=== PATIENT | female | born 1950 | race Caucasian/White ===

== ENCOUNTER 2016-08-27 21:49 | Emergency (ER) | payer MEDICARE ==
[2016-08-27 22:03] VITALS: RESP 18
[2016-08-27] MEDS ORDERED: SODIUM CHLORIDE 0.9% 1,000 ML IV STA (22:12)
[2016-08-27] MEDS ORDERED: KETOROLAC 60 MG/2 ML VIAL IVP STA (22:13)
[2016-08-27] MEDS ORDERED: BENZONATATE 100 MG CAP PO STA (22:15)
[2016-08-27] MEDS ORDERED: LORazepam 2 MG/ML SYRINGE IV STA (22:15)
--- NOTE | 2016-08-27 22:15 | ED ---
General Adult HPI - General Chief complaint: Chest Pain Stated complaint: chest pain from cough/poss med reaction Time Seen by Provider: 08/27/16 22:00 Source: patient, RN notes reviewed Mode of arrival: wheelchair Limitations: no limitations - History of Present Illness Initial comments: This is a 66-year-old female with past medical history significant for breast cancer which she was diagnosed with an June. Patient states she is on chemotherapy. Patient states on Sunday she was having a bad cough so she saw her oncologist a started on antibiotic but because she developed a rash on her abdomen it was a very fine rash with no symptoms he decided to stop the antibiotic. Patient states she still coughs and is starting to hurt when she coughs now. Patient denies any chest pain while at rest the only time she has chest pain is when she is coughing. Patient denies any difficulty breathing shortness of breath per patient denies any fever or chills per patient states she is tired but she has been tired since she's been on chemotherapy. Patient denies any abdominal pain patient denies nausea vomiting diarrhea. Patient denies headache patient denies numbness weakness. - Related Data Home Medications Medication Instructions Recorded Confirmed Acyclovir [Zovirax] 400 mg PO TID 08/27/16 08/27/16 Atenolol 25 mg PO DAILY 08/27/16 08/27/16 Calcium Carb-Vit D 250Mg-125Un 2 each PO DAILY 08/27/16 08/27/16 [Oscal 250+D] Ibuprofen [Advil] 400 mg PO BID 08/27/16 08/27/16 Lidocaine-Prilocaine Cream [Emla 1 applic TOPICAL DIRECTED 08/27/16 08/27/16 Cream 2.5%/2.5%] Lovastatin [Mevacor] 20 mg PO DAILY 08/27/16 08/27/16 Multivitamins, Thera [Multivitamin] 1 tab PO DAILY 08/27/16 08/27/16 Prochlorperazine [Compazine] 10 mg PO Q6H 08/27/16 08/27/16 Psyllium Husk 100% [Metamucil] 500 mg PO DAILY 08/27/16 08/27/16 Previous Rx's Medication Instructions Recorded Albuterol Inhaler [Ventolin Hfa 1 - 2 puff INHALATION Q6HR PRN #2 08/28/16 Inhaler] puff Azithromycin [Zithromax Tri-Seng] 500 mg PO DAILY #3 tab 08/28/16 Benzonatate [Tessalon Perles] 200 mg PO TID #10 capsule 08/28/16 Allergies Allergy/AdvReac Type Severity Reaction Status Date / Time amoxicillin Allergy Rash/Hives Verified 08/27/16 22:05 chlorpheniramine Allergy Itching Verified 08/27/16 22:05 [From Tussionex] doxycycline Allergy Itching Verified 08/27/16 22:05 hydrocodone [From Tussionex] Allergy Itching Verified 08/27/16 22:05 moxifloxacin [From Avelox] Allergy Itching Verified 08/27/16 22:05 Review of Systems ROS Statement: Those systems with pertinent positive or pertinent negative responses have been documented in the HPI. ROS Other: All systems not noted in ROS Statement are negative. Past Medical History Past Medical History: Cancer, Hyperlipidemia, Hypertension, Osteoarthritis (OA) Additional Past Medical History / Comment(s): breast cancer, chemo History of Any Multi-Drug Resistant Organisms: None Reported Past Surgical History: Section, Tonsillectomy Additional Past Surgical History / Comment(s): arthroscopy to right knee, Past Psychological History: No Psychological Hx Reported Smoking Status: Never smoker Past Alcohol Use History: None Reported Past Drug Use History: None Reported General Exam - General Exam Comments Initial Comments: GENERAL: Patient is well-developed and well-nourished. Patient is nontoxic and well- hydrated and is in mild distress. ENT: Neck is soft and supple. No significant lymphadenopathy is noted. Oropharynx is clear. Moist mucous membranes. Neck has full range of motion without eliciting any pain. EYES: The sclera were anicteric and conjunctiva were pink and moist. Extraocular movements were intact and pupils were equal round and reactive to light. Eyelids were unremarkable. PULMONARY: Unlabored respirations. Good breath sounds bilaterally. No audible rales rhonchi or wheezing was noted. CARDIOVASCULAR: There is a regular rate and rhythm without any murmurs gallops or rubs. Patient 's chest tenderness under the breast to palpation ABDOMEN: Soft and nontender with normal bowel sounds. No palpable organomegaly was noted. There is no palpable pulsatile mass. SKIN: Skin is clear with no lesions or rashes and otherwise unremarkable. NEUROLOGIC: Patient is alert and oriented x3. Cranial nerves II through XII are grossly intact. Motor and sensory are also intact. Normal speech, volume and content. Symmetrical smile. MUSCULOSKELETAL: Normal extremities with adequate strength and full range of motion. No lower extremity swelling or edema. No calf tenderness. LYMPHATICS: No significant lymphadenopathy is noted PSYCHIATRIC: Normal psychiatric evaluation. Normal interpersonal interactions appears functionally intact in deals appropriately with others. No signs of depression. Mild anxiety Limitations: no limitations Course Vital Signs 08/27/16 21:58 Temperature 101.1 F H Pulse Rate 120 H Respiratory 18 Rate Blood Pressure 133/62 O2 Sat by Pulse 96 Oximetry Medical Decision Making - Medical Decision Making EKG shows a sinus tachycardia at 107 bpm. It was on a 42 QRS is 74 QT interval 342 QTC is 456. Patient's EKG shows no ST segment elevation or depression or T wave abnormalities are noted. Patient's CAT scan of the chest shows no PE or pneumonia. Tessalon Perles seem to help the patient's cough patient received 1 g of Rocephin. - Lab Data Result diagrams: 08/27/16 22:35 08/27/16 22:35 Lab Results 08/27/16 08/27/16 08/27/16 Range/Units 22:35 22:35 22:35 WBC 5.1 (3.8-10.6) k/uL RBC 3.11 L (3.80-5.40) m/uL Hgb 9.9 L (11.4-16.0) gm/dL Hct 28.7 L (34.0-46.0) % MCV 92.3 (80.0-100.0) fL MCH 31.9 (25.0-35.0) pg MCHC 34.6 (31.0-37.0) g/dL RDW 15.5 (11.5-15.5) % Plt Count 139 L (150-450) k/uL Neutrophils % (Manual) 61.0 % Band Neutrophils % 14.0 % Lymphocytes % (Manual) 9.5 % Monocytes % (Manual) 9.0 % Eosinophils % (Manual) 0.5 % Metamyelocytes % 4.0 % Myelocytes % 2.0 % Neutrophils # (Manual) 3.8 (1.3-7.7) k/uL Lymphocytes # (Manual) 0.5 L (1.0-4.8) k/uL Monocytes # (Manual) 0.5 (0-1.0) k/uL Eosinophils # (Manual) 0.0 (0-0.7) k/uL Nucleated RBCs 0 (0-0) /100 WBC Manual Slide Review Performed Polychromasia Present Anisocytosis (manual) Present D-Dimer 2.10 H (<0.60) mg/L FEU Sodium 143 (137-145) mmol/L Potassium 3.8 (3.5-5.1) mmol/L Chloride 105 (98-107) mmol/L Carbon Dioxide 27 (22-30) mmol/L Anion Gap 11 mmol/L BUN 15 (7-17) mg/dL Creatinine 0.90 (0.52-1.04) mg/dL Est GFR (MDRD) Af Amer >60 (>60 ml/min/1.73 sqM) Est GFR (MDRD) Non-Af >60 (>60 ml/min/1.73 sqM) Glucose 136 H (74-99) mg/dL Calcium 8.6 (8.4-10.2) mg/dL Magnesium 1.8 (1.6-2.3) mg/dL Total Bilirubin 0.3 (0.2-1.3) mg/dL AST 29 (14-36) U/L ALT 36 (9-52) U/L Alkaline Phosphatase 79 (38-126) U/L Total Protein 5.4 L (6.3-8.2) g/dL Albumin 3.2 L (3.5-5.0) g/dL Disposition Clinical Impression: Bronchitis Disposition: HOME SELF-CARE Condition: Good Instructions: Acute Bronchitis (ED) Prescriptions: Albuterol Inhaler [Ventolin Hfa Inhaler] 1 - 2 puff INHALATION Q6HR PRN #2 puff PRN Reason: Difficulty breathing Azithromycin [Zithromax Tri-Seng] 500 mg PO DAILY #3 tab Benzonatate [Tessalon Perles] 200 mg PO TID #10 capsule Referrals: Omkar Guerrero MD [Primary Care Provider] - 1-2 days Time of Disposition: 00:54
[2016-08-27 22:59] LABS: CH 32.5; CHCM 35.5; HCT 28.7 % (34.0-46.0); HDW 3.07; HGB 9.9 gm/dL (11.4-16.0); Immature Gran Flag Marked; MCH 31.9 pg (25.0-35.0); MCHC 34.6 g/dL (31.0-37.0); MCV 92.3 fL (80.0-100.0); Mean Platelet Volume 7.3; RBC 3.11 m/uL (3.80-5.40); RDW 15.5 % (11.5-15.5); WBC 5.1 k/uL (3.8-10.6); WBC (Perox) 5.16
[2016-08-27 23:01] LABS: ALT 36 U/L (9-52); AST 29 U/L (14-36); Alkaline Phosphatase 79 U/L (38-126); Anion Gap 11 mmol/L; Blood Urea Nitrogen 15 mg/dL (7-17); Calcium 8.6 mg/dL (8.4-10.2); Carbon Dioxide 27 mmol/L (22-30); Chloride 105 mmol/L (98-107); Glucose 136 mg/dL (74-99); Magnesium 1.8 mg/dL (1.6-2.3); Non-African American GFR(MDRD) >60 (>60 ml/min/1.73 sqM); Potassium 3.8 mmol/L (3.5-5.1); Sodium 143 mmol/L (137-145); Total Bilirubin 0.3 mg/dL (0.2-1.3); Total Protein 5.4 g/dL (6.3-8.2)
[2016-08-27] MEDS ORDERED: RX INFO: IV CONTRAST WAS GIVEN 1 EACH MISC MISCELLANE PRN (23:09)
--- NOTE | 2016-08-27 23:13 | XR ---
EXAMINATION TYPE: XR chest 2V DATE OF EXAM: 08/27/2016 10:49 PM COMPARISON: None. HISTORY: Difficulty in breathing, fever cough history of breast carcinoma. TECHNIQUE: Frontal and lateral views of the chest are obtained. FINDINGS: Left-sided Mediport catheter is noted in place with its tip in the superior vena cava. Mild chronic lung changes are suggested bilaterally. There is no focal air space opacity, pleural effusion, or pneumothorax seen. The cardiac silhouette size is within normal limits. The osseous structures are intact. IMPRESSION: No acute cardiopulmonary process.
[2016-08-27 23:17] LABS: Add Differential Manual Differential
[2016-08-27 23:22] LABS: Nucleated Red Blood Cells 0 /100 WBC (0-0); Total Cells Counted 200
[2016-08-27 23:23] LABS: Manual Review Performed; Polychromasia Present
[2016-08-27] MEDS ORDERED: ACETAMINOPHEN TAB 500 MG TAB PO STA (23:44)
[2016-08-27] MEDS ORDERED: IBUPROFEN 600 MG TAB PO STA (23:44)
--- NOTE | 2016-08-28 00:43 | CT ---
EXAMINATION TYPE: CT chest angio for PE DATE OF EXAM: 08/27/2016 11:38 PM COMPARISON: NONE HISTORY: JO ANN, breast ca, r/o PE CT DLP: 531 mGycm Automated exposure control for dose reduction was used. CONTRAST: CT Chest for pulmonary embolism performed with with IV Contrast, patient injected with 60 mL of Omnip aque 350. FINDINGS: PULMONARY ARTERIES: The evaluation of pulmonary arteries is slightly limited due to multiple artifact s and the limited opacification of central and peripheral pulmonary arterial branches. No significant filling defects are noted in the main pulmonary arteries and central branches to repre sent acute pulmonary embolism. LUNGS: Chronic lung changes are suggested bilaterally. Dependent atelectasis is noted in both lung ba ses with mild emphysematous changes. No significant lung masses are nodules are noted. There is no pl eural effusion or pneumothorax seen. The tracheobronchial tree is patent. No significant focal pneum onia is noted. MEDIASTINUM: The ascending aorta measures 2.8 cm in greatest AP diameter without significant aneurysm . No definite dissection changes are noted in this evaluation of thoracic aorta with multiple motion artifacts and showed mild atheromatous calcifications. There are no greater than 1 cm hilar or medias tinal lymph nodes. No pericardial effusion is seen. A Mediport catheter is noted superimposing the left chest. OTHER: Visualized abdomen showed contracted gallbladder with few gallstones. Visualized adrenal glan ds showed mild hypertrophic changes. IMPRESSION: 1. No significant acute pulmonary embolism is noted in this slightly limited study with multiple shai facts in the peripheral and central pulmonary arterial branches. 2. No significant focal pneumonia is noted. 3. Cholelithiasis.
[2016-08-28] MEDS ORDERED: IPRATROPIUM-ALBUTEROL 3 ML NEB INHALATION STA (00:55)
[2016-08-28 01:36] VITALS: BP 127/59; PULSE 108; TEMP 99.2
== END 2016-08-28 01:36 | disposition home or self-care (01) ==
LOC: EC 21:49
DX: J40 Bronchitis, not specified as acute or chronic (principal); I10 Essential (primary) hypertension; E78.5 Hyperlipidemia, unspecified; M19.90 Unspecified osteoarthritis, unspecified site; Z85.3 Personal history of malignant neoplasm of breast; Z92.21 Personal history of antineoplastic chemotherapy; R05 Cough; Z79.899 Other long term (current) drug therapy; Z88.1 Allergy status to other antibiotic agents; Z88.0 Allergy status to penicillin; Z88.8 Allergy status to other drugs, medicaments and biological substances
CPT/HCPCS: 99285; 96374; 96375; 96361; 96365; 36415; 94640; 93005; 85379; 80053; 83735; 85025; 87040; 71020; 71275; J2060; Q9967; J0696; J1885

== ENCOUNTER 2016-08-28 20:40 | Inpatient (IN) | payer MEDICARE ==
[2016-08-28] MEDS ORDERED: SODIUM CHLORIDE 0.9% 500 ML IV STA (22:52)
[2016-08-28] MEDS ORDERED: SODIUM CHLORIDE 0.9% 1,000 ML IV STA (22:52)
[2016-08-28] MEDS ORDERED: AZITHROMYCIN 500 MG in SODIUM CHLORIDE 0.9% 250 ML IVPB STA (22:58)
[2016-08-28] MEDS ORDERED: cefTRIAXone 2,000 MG in SODIUM CHLORIDE 0.9% 100 ML IVPB STA (23:01)
[2016-08-28 23:11] LABS: Anisocytosis Slight; CH 32.5; CHCM 35.5; HCT 29.2 % (34.0-46.0); HDW 3.27; HGB 10.2 gm/dL (11.4-16.0); Immature Gran Flag Marked; MCH 32.3 pg (25.0-35.0); MCV 92.3 fL (80.0-100.0); Mean Platelet Volume 7.4; RBC 3.16 m/uL (3.80-5.40); RDW 16.1 % (11.5-15.5); WBC 10.4 k/uL (3.8-10.6); WBC (Perox) 10.88
[2016-08-28 23:12] LABS: Appearance,Urine Clear (Clear); Bilirubin,Urine Negative (Negative); Glucose,Urine (UA) Negative (Negative); Ketones,Urine 2+ (Negative); Leukocyte Esterase,Urine Negative (Negative); Nitrite,Urine Negative (Negative); PH, Urine 5.5 (5.0-8.0); Protein,Urine Trace (Negative); Specific Gravity,Urine 1.019 (1.001-1.035); UA Billing (MACRO vs. MICRO) CHEM; Urobilinogen,Urine <2.0 mg/dL (<2.0)
[2016-08-28 23:20] LABS: ALT 45 U/L (9-52); AST 38 U/L (14-36); Alkaline Phosphatase 90 U/L (38-126); Anion Gap 9 mmol/L; Blood Urea Nitrogen 9 mg/dL (7-17); Calcium 8.2 mg/dL (8.4-10.2); Carbon Dioxide 26 mmol/L (22-30); Chloride 102 mmol/L (98-107); Glucose 120 mg/dL (74-99); Non-African American GFR(MDRD) >60 (>60 ml/min/1.73 sqM); Potassium 3.6 mmol/L (3.5-5.1); Sodium 137 mmol/L (137-145); Total Bilirubin 0.5 mg/dL (0.2-1.3); Total Protein 6.2 g/dL (6.3-8.2)
--- NOTE | 2016-08-28 23:34 | XR ---
EXAMINATION TYPE: XR chest 2V DATE OF EXAM: 08/28/2016 11:11 PM COMPARISON: 08/27/2016 HISTORY: Cough TECHNIQUE: Frontal and lateral views of the chest are obtained. FINDINGS: There is no heart failure nor confluent pneumonic infiltrate. There are no hilar masses. T here is left-sided central venous catheter with tip in the superior vena cava. There is no sign of pl eural effusion. Bony thorax is intact. IMPRESSION: No active cardiopulmonary disease. No change.
[2016-08-28] MEDS ORDERED: ONDANSETRON 4 MG/2 ML VIAL IVP STA (23:37)
[2016-08-28 23:45] LABS: Add Differential Manual Differential
[2016-08-28 23:48] LABS: Manual Review Performed; Metamyelocytes % 1.5 %; Myelocytes % 5.5 %; Nucleated Red Blood Cells 0 /100 WBC (0-0); Polychromasia Present; Total Cells Counted 200; Toxic Granulation Present; Toxic Vacuolation Present
[2016-08-29] MEDS ORDERED: ACETAMINOPHEN TAB 500 MG TAB PO STA
--- NOTE | 2016-08-29 00:14 | ED ---
Fever HPI - General Chief Complaint: Fever Stated Complaint: revisit fever Time Seen by Provider: 08/28/16 22:19 Source: patient, family Mode of arrival: ambulatory Limitations: no limitations - History of Present Illness Initial Comments: She has a history of breast cancer she is on now after treatment with a chemo last chemo was 3 days ago she has a fever for last few days she has been on antibiotics and after she got Augmentin she developed a rash in the chest now rash has gotten better but today she can't get it of the fever has been coughing for the last 5 days, Dr. Joselito moody look and after her breast cancer she also had some loose stools she feels very weak and had a recurrence and chills along with the fever. Denies any headaches no neck stiffness no chest pain is coughing no abdominal pain no frequency urgency dysuria - Related Data Home Medications Medication Instructions Recorded Confirmed Atenolol 25 mg PO DAILY 08/27/16 08/28/16 Ibuprofen [Advil] 400 mg PO BID 08/27/16 08/28/16 Lidocaine-Prilocaine Cream [Emla 1 applic TOPICAL DAILY PRN 08/27/16 08/28/16 Cream 2.5%/2.5%] Lovastatin [Mevacor] 20 mg PO HS 08/27/16 08/28/16 Multivitamins, Thera [Multivitamin] 1 tab PO DAILY 08/27/16 08/28/16 Acetaminophen Tab [Tylenol Tab] 500 mg PO Q6H PRN 08/28/16 08/28/16 Albuterol Inhaler [Ventolin Hfa 2 puff INHALATION RT-Q6H PRN 08/28/16 08/28/16 Inhaler] Calcium Carbonate/Vitamin D3 2 tab PO DAILY 08/28/16 08/28/16 [Calcium 600-Vit D3 200 Tablet] Psyllium Husk [Psyllium] 0.4 gm PO HS 08/28/16 08/28/16 Previous Rx's Medication Instructions Recorded Azithromycin [Zithromax Tri-Seng] 500 mg PO DAILY #3 tab 08/28/16 Benzonatate [Tessalon Perles] 200 mg PO TID #10 capsule 08/28/16 Allergies Allergy/AdvReac Type Severity Reaction Status Date / Time amoxicillin [From Augmentin] Allergy Rash/Hives/ Verified 08/28/16 23:08 Diarrhea chlorpheniramine Allergy Itching Verified 08/28/16 23:08 [From Tussionex] clavulanic acid Allergy Rash/Hives/ Verified 08/28/16 23:08 [From Augmentin] Diarrhea doxycycline Allergy Itching Verified 08/28/16 23:08 hydrocodone [From Tussionex] Allergy Itching Verified 08/28/16 23:08 moxifloxacin [From Avelox] Allergy Itching Verified 08/28/16 23:08 Review of Systems ROS Statement: Those systems with pertinent positive or pertinent negative responses have been documented in the HPI. ROS Other: All systems not noted in ROS Statement are negative. Past Medical History Past Medical History: Cancer, Hyperlipidemia, Hypertension, Osteoarthritis (OA) Additional Past Medical History / Comment(s): breast cancer, chemo History of Any Multi-Drug Resistant Organisms: None Reported Past Surgical History: Section, Tonsillectomy Additional Past Surgical History / Comment(s): arthroscopy to right knee, Past Psychological History: No Psychological Hx Reported Smoking Status: Never smoker Past Alcohol Use History: None Reported Past Drug Use History: None Reported General Exam - General Exam Comments Initial Comments: General: The patient is awake and alert, in no distress, and does look pale and tired Skin: Skin is warm and dry and no rashes or lesions are noted. Noticed very mild rash and anterior chest in the epigastric area seems like it is fading away Eye: Pupils are equal, round and reactive to light, extra-ocular movements are intact; there is normal conjunctiva bilaterally. Ears, nose, mouth and throat: There are moist mucous membranes and no oral lesions. Neck: The neck is supple, there is no tenderness or JVD. Cardiovascular: There is a regular rate and rhythm. No murmur, rub or gallop is appreciated. Respiratory: To auscultation bilateral, noticed some crackles at the bases Gastrointestinal: Soft, non-distended, non-tender abdomen without masses or organomegaly noted. There is no rebound or guarding present. Bowel sounds are unremarkable. Back: There is no tenderness to palpation in the midline. There is no obvious deformity. Musculoskeletal: Normal ROM, no tenderness, There is no pedal edema. There is no calf tenderness or swelling. No cords were appreciated. Neurological: CN II-XII intact, Cranial nerves III through XII are intact. There are no obvious motor or sensory deficits. Coordination appears grossly intact. Speech is normal. Psychiatric: Cooperative, appropriate mood & affect, normal judgment. Limitations: no limitations Course Vital Signs 08/28/16 08/28/16 08/28/16 20:49 23:54 23:59 Temperature 101.6 F H 102.5 F H Pulse Rate 111 H 117 H Respiratory 20 22 Rate Blood Pressure 104/56 124/58 O2 Sat by Pulse 96 95 Oximetry General is reassessed at 12 10 in the morning, CBC, lites, compressive metabolic panel, UA, chest x-ray all those are negative R fever has gone up. Sed rate greater than 102 at this point I believe she has a sepsis for treated pneumonia because she was an O2 sats of antibiotics considering her immunocompromise status with her do the cultures urine culture blood culture she be started on antibiotics considering her ALLERGIES and sensitivities and will consult Dr. Yee patient be admitted under Dr. Gonzales and her primary care physician Medical Decision Making - Lab Data Result diagrams: 08/28/16 22:58 08/28/16 22:58 Lab Results 08/28/16 08/28/16 08/28/16 Range/Units 22:58 22:58 22:58 WBC 10.4 (3.8-10.6) k/uL RBC 3.16 L (3.80-5.40) m/uL Hgb 10.2 L (11.4-16.0) gm/dL Hct 29.2 L (34.0-46.0) % MCV 92.3 (80.0-100.0) fL MCH 32.3 (25.0-35.0) pg MCHC 35.0 (31.0-37.0) g/dL RDW 16.1 H (11.5-15.5) % Plt Count 146 L (150-450) k/uL Neutrophils % (Manual) 81.5 % Lymphocytes % (Manual) 2.0 % Monocytes % (Manual) 8.5 % Eosinophils % (Manual) 1.0 % Metamyelocytes % 1.5 % Myelocytes % 5.5 % Neutrophils # (Manual) 8.5 H (1.3-7.7) k/uL Lymphocytes # (Manual) 0.2 L (1.0-4.8) k/uL Monocytes # (Manual) 0.9 (0-1.0) k/uL Eosinophils # (Manual) 0.1 (0-0.7) k/uL Nucleated RBCs 0 (0-0) /100 WBC Manual Slide Review Performed Toxic Granulation Present Toxic Vacuolation Present Polychromasia Present Anisocytosis Slight Sodium 137 (137-145) mmol/L Potassium 3.6 (3.5-5.1) mmol/L Chloride 102 (98-107) mmol/L Carbon Dioxide 26 (22-30) mmol/L Anion Gap 9 mmol/L BUN 9 (7-17) mg/dL Creatinine 0.79 (0.52-1.04) mg/dL Est GFR (MDRD) Af Amer >60 (>60 ml/min/1.73 sqM) Est GFR (MDRD) Non-Af >60 (>60 ml/min/1.73 sqM) Glucose 120 H (74-99) mg/dL Plasma Lactic Acid Jimi 1.4 (0.7-2.0) mmol/L Calcium 8.2 L (8.4-10.2) mg/dL Total Bilirubin 0.5 (0.2-1.3) mg/dL AST 38 H (14-36) U/L ALT 45 (9-52) U/L Alkaline Phosphatase 90 (38-126) U/L Total Protein 6.2 L (6.3-8.2) g/dL Albumin 3.6 (3.5-5.0) g/dL Urine Color Urine Appearance (Clear) Urine pH (5.0-8.0) Ur Specific [place] (1.001-1.035) Urine Protein (Negative) Urine Glucose (UA) (Negative) Urine Ketones (Negative) Urine Blood (Negative) Urine Nitrate (Negative) Urine Bilirubin (Negative) Urine Urobilinogen (<2.0) mg/dL Ur Leukocyte Esterase (Negative) 08/28/16 Range/Units 22:58 WBC (3.8-10.6) k/uL RBC (3.80-5.40) m/uL Hgb (11.4-16.0) gm/dL Hct (34.0-46.0) % MCV (80.0-100.0) fL MCH (25.0-35.0) pg MCHC (31.0-37.0) g/dL RDW (11.5-15.5) % Plt Count (150-450) k/uL Neutrophils % (Manual) % Lymphocytes % (Manual) % Monocytes % (Manual) % Eosinophils % (Manual) % Metamyelocytes % % Myelocytes % % Neutrophils # (Manual) (1.3-7.7) k/uL Lymphocytes # (Manual) (1.0-4.8) k/uL Monocytes # (Manual) (0-1.0) k/uL Eosinophils # (Manual) (0-0.7) k/uL Nucleated RBCs (0-0) /100 WBC Manual Slide Review Toxic Granulation Toxic Vacuolation Polychromasia Anisocytosis Sodium (137-145) mmol/L Potassium (3.5-5.1) mmol/L Chloride (98-107) mmol/L Carbon Dioxide (22-30) mmol/L Anion Gap mmol/L BUN (7-17) mg/dL Creatinine (0.52-1.04) mg/dL Est GFR (MDRD) Af Amer (>60 ml/min/1.73 sqM) Est GFR (MDRD) Non-Af (>60 ml/min/1.73 sqM) Glucose (74-99) mg/dL Plasma Lactic Acid Jimi (0.7-2.0) mmol/L Calcium (8.4-10.2) mg/dL Total Bilirubin (0.2-1.3) mg/dL AST (14-36) U/L ALT (9-52) U/L Alkaline Phosphatase (38-126) U/L Total Protein (6.3-8.2) g/dL Albumin (3.5-5.0) g/dL Urine Color Yellow Urine Appearance Clear (Clear) Urine pH 5.5 (5.0-8.0) Ur Specific [place] 1.019 (1.001-1.035) Urine Protein Trace H (Negative) Urine Glucose (UA) Negative (Negative) Urine Ketones 2+ H (Negative) Urine Blood Negative (Negative) Urine Nitrate Negative (Negative) Urine Bilirubin Negative (Negative) Urine Urobilinogen <2.0 (<2.0) mg/dL Ur Leukocyte Esterase Negative (Negative) Disposition Clinical Impression: Fever, History of breast cancer, Chemotherapy induced diarrhea, Diarrhea, Pneumonia Disposition: ADMITTED IP TO THIS HOSP Condition: Good Referrals: Omkar Guerrero MD [Primary Care Provider] - 1-2 days
[2016-08-29] MEDS ORDERED: IBUPROFEN 400 MG TAB PO PRN ×2 (00:16→01:10)
[2016-08-29] MEDS ORDERED: ONDANSETRON 4 MG/2 ML VIAL IVP PRN (00:16)
[2016-08-29] MEDS ORDERED: NALOXONE 0.4 MG/ML 1 ML VIAL IV PRN (00:16)
[2016-08-29] MEDS ORDERED: ACETAMINOPHEN TAB 325 MG TAB PO PRN (00:16)
[2016-08-29] MEDS ORDERED: ALBUTEROL NEBULIZED 2.5 MG/3 ML INHALATION PRN (00:21)
[2016-08-29] MEDS ORDERED: LIDOCAINE-PRILOCAINE 2.5-2.5% CREAM 5 GM TUBE TOPICAL PRN (00:21)
[2016-08-29] MEDS ORDERED: RX INFO: IV CONTRAST WAS GIVEN 1 EACH MISC MISCELLANE PRN (00:22)
[2016-08-29] MEDS: SODIUM CHLORIDE 0.9% 1,000 ML IV SCH ×3 (04:35→20:30)
[2016-08-29] MEDS: ATENOLOL 25 MG TAB PO SCH (07:51)
[2016-08-29] MEDS: MULTIVITAMINS, THERA 1 EACH TAB PO SCH (07:51)
[2016-08-29] MEDS: CALCIUM CARB-VIT D 500MG-200UN 1 EACH TAB PO SCH (07:51)
[2016-08-29] MEDS: FAMOTIDINE 20 MG TAB PO SCH (10:32)
--- NOTE | 2016-08-29 11:11 | P.CONS ---
History of Present Illness - Reason for Consult Consult date: 08/29/16 Antibiotic recommendations - History of Present Illness This is a 66-year-old female. She has a past medical history significant for right-sided breast cancer under the care of Dr. Yee. She is currently receiving chemotherapy in the form of Doxorubicin. She receives this every 2 weeks and her next dose is due this Sunday #4 and she states recently Neulasta was added. Since last Sunday, she has had a cough and runny nose. She denies any sore throat. She states her right lower ribs are sore from coughing so much. She is not able to sleep due to the cough. She was given Augmentin by Dr. Yee and took this for 2 days and then developed a rash under her breast/upper abdomen and also diarrhea. She called Dr. Cheema and the Augmentin was discontinued. She then presented to the emergency center on August 27. She had a temperature of 101.1, pulse of 120. Chest x-ray showed no acute cardiopulmonary process. She underwent a CAT scan of the brain that showed no PE and no pneumonia. She was discharged home on an albuterol inhaler, 3 day Z-Seng, Tessalon Perles and a follow-up with her physician in the next 1-2 days. On Sunday night she again had a fever of 100.5 at home and she came into [facility] emergency center for evaluation. Repeat chest x-ray showed no active cardiopulmonary disease. Temperature max in the emergency center was 102.5 with pulse of 117. White count was at 10.4, hemoglobin 10.2 and platelet count 146. Influenza testing a and B were negative. Urinalysis was clear, nitrite and leukoesterase negative, ketones 2+ . Lactic acid 1.4. Patient was given dose of ceftriaxone and dose of azithromycin IV and admitted to the oncology unit. Blood culture has status received. Consult in place for oncology. Review of Systems All systems: negative Constitutional: Reports anorexia, Reports chills, Reports fatigue, Reports fever , Reports lethargy, Reports poor appetite, Reports weakness Eyes: denies blurred vision, denies pain Ears, nose, mouth and throat: Reports nasal congestion, Reports nasal discharge , Denies dental pain, Denies dysphagia, Denies epistaxis, Denies headache, Denies mouth pain, Denies swelling in mouth, Denies swelling in throat, Denies sore throat Cardiovascular: Reports chest pain, Denies shortness of breath Respiratory: Reports cough, Reports cough with sputum Gastrointestinal: Reports diarrhea, Denies abdominal pain, Denies nausea, Denies vomiting Genitourinary: Denies dysuria, Denies hematuria Musculoskeletal: Denies myalgias Integumentary: Denies pruritus, Denies rash Neurological: Denies numbness, Denies weakness Psychiatric: Denies anxiety, Denies depression Endocrine: Denies fatigue, Denies weight change Past Medical History Past Medical History: Cancer, Hyperlipidemia, Hypertension, Osteoarthritis (OA) Additional Past Medical History / Comment(s): Right sided breast cancer treated with Doxorubicin. History of Any Multi-Drug Resistant Organisms: None Reported Past Surgical History: Section, Tonsillectomy Additional Past Surgical History / Comment(s): arthroscopy to right knee, Past Anesthesia/Blood Transfusion Reactions: No Reported Reaction Past Psychological History: No Psychological Hx Reported Smoking Status: Never smoker Past Alcohol Use History: None Reported Additional Past Alcohol Use History / Comment(s): She has been a lifelong nonsmoker. She denies any medical marijuana, marijuana, street drug use. She drinks alcohol occasionally but none since she started chemotherapy. 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 She lives at home with her and 2 adult sons. There are no pets in the home. Past Drug Use History: None Reported - Past Family History Mother History Unknown: Yes Family Medical History: Cancer, Hypertension Additional Family Medical History / Comment(s): Breast cancer Medications and Allergies Home Medications Medication Instructions Recorded Confirmed Type Atenolol 25 mg PO DAILY 08/27/16 08/28/16 History Ibuprofen [Advil] 400 mg PO BID 08/27/16 08/28/16 History Lidocaine-Prilocaine Cream [Emla 1 applic TOPICAL DAILY PRN 08/27/16 08/28/16 History Cream 2.5%/2.5%] Lovastatin [Mevacor] 20 mg PO HS 08/27/16 08/28/16 History Multivitamins, Thera [Multivitamin] 1 tab PO DAILY 08/27/16 08/28/16 History Acetaminophen Tab [Tylenol Tab] 500 mg PO Q6H PRN 08/28/16 08/28/16 History Albuterol Inhaler [Ventolin Hfa 2 puff INHALATION RT-Q6H PRN 08/28/16 08/28/16 History Inhaler] Calcium Carbonate/Vitamin D3 2 tab PO DAILY 08/28/16 08/28/16 History [Calcium 600-Vit D3 200 Tablet] Psyllium Husk [Psyllium] 0.4 gm PO HS 08/28/16 08/28/16 History Allergies Allergy/AdvReac Type Severity Reaction Status Date / Time amoxicillin [From Augmentin] Allergy Rash/Hives/ Verified 08/28/16 23:08 Diarrhea chlorpheniramine Allergy Itching Verified 08/28/16 23:08 [From Tussionex] clavulanic acid Allergy Rash/Hives/ Verified 08/28/16 23:08 [From Augmentin] Diarrhea doxycycline Allergy Itching Verified 08/28/16 23:08 hydrocodone [From Tussionex] Allergy Itching Verified 08/28/16 23:08 moxifloxacin [From Avelox] Allergy Itching Verified 08/28/16 23:08 Physical Exam Vitals: Vital Signs Temp Pulse Pulse Resp BP BP Pulse Ox 08/29/16 07:00 99.4 F 112 H 20 125/67 96 08/29/16 04:28 98.3 F 08/29/16 01:51 99.4 F 08/29/16 01:50 98.7 F 109 H 16 126/53 96 08/29/16 01:33 112 H 20 121/77 08/29/16 00:44 102.3 F H 112 H 16 124/58 95 Intake and Output 08/28/16 08/29/16 08/29/16 22:59 06:59 14:59 Other: Voiding Method Toilet Toilet # Voids 4 Gen: This is a 66-year-old female. She is sitting up in bed and appears to be in no acute distress except for a noted hacking cough. HEENT: Head is atraumatic, normocephalic. Pupils equal, round. Sclerae is anicteric. NECK: Supple. No JVD. No lymphadenopathy. No thyromegaly. LUNGS: Coarse breath sounds scattered throughout changing with coughing. Occasional wheeze. No intercostal retractions. HEART: Regular rate and rhythm. No murmur. Tenderness to the right lower ribs anteriorly. ABDOMEN: Soft. Bowel sounds are present. No masses. No tenderness. No rashes noted. EXTREMITIES: No pedal edema. No calf tenderness. Dorsalis pedis +2 bilaterally. NEUROLOGICAL: Patient is awake, alert and oriented x3. Cranial nerves 2 through 12 are grossly intact. Results Results: Laboratory Results WBC 10.4 k/uL (3.8-10.6) 08/28/16 22:58 RBC 3.16 m/uL (3.80-5.40) L 08/28/16 22:58 Hgb 10.2 gm/dL (11.4-16.0) L 08/28/16 22:58 Hct 29.2 % (34.0-46.0) L 08/28/16 22:58 MCV 92.3 fL (80.0-100.0) 08/28/16 22:58 MCH 32.3 pg (25.0-35.0) 08/28/16 22:58 MCHC 35.0 g/dL (31.0-37.0) 08/28/16 22:58 RDW 16.1 % (11.5-15.5) H 08/28/16 22:58 Plt Count 146 k/uL (150-450) L 08/28/16 22:58 Neutrophils % (Manual) 81.5 % 08/28/16 22:58 Lymphocytes % (Manual) 2.0 % 08/28/16 22:58 Monocytes % (Manual) 8.5 % 08/28/16 22:58 Eosinophils % (Manual) 1.0 % 08/28/16 22:58 Metamyelocytes % 1.5 % 08/28/16 22:58 Myelocytes % 5.5 % 08/28/16 22:58 Neutrophils # (Manual) 8.5 k/uL (1.3-7.7) H 08/28/16 22:58 Lymphocytes # (Manual) 0.2 k/uL (1.0-4.8) L 08/28/16 22:58 Monocytes # (Manual) 0.9 k/uL (0-1.0) 08/28/16 22:58 Eosinophils # (Manual) 0.1 k/uL (0-0.7) 08/28/16 22:58 Nucleated RBCs 0 /100 WBC (0-0) 08/28/16 22:58 Manual Slide Review Performed 08/28/16 22:58 Toxic Granulation Present 08/28/16 22:58 Toxic Vacuolation Present 08/28/16 22:58 Polychromasia Present 08/28/16 22:58 Anisocytosis Slight 08/28/16 22:58 Sodium 137 mmol/L (137-145) 08/28/16 22:58 Potassium 3.6 mmol/L (3.5-5.1) 08/28/16 22:58 Chloride 102 mmol/L (98-107) 08/28/16 22:58 Carbon Dioxide 26 mmol/L (22-30) 08/28/16 22:58 Anion Gap 9 mmol/L 08/28/16 22:58 BUN 9 mg/dL (7-17) 08/28/16 22:58 Creatinine 0.79 mg/dL (0.52-1.04) 08/28/16 22:58 Est GFR (MDRD) Af Amer >60 (>60 ml/min/1.73 sqM) 08/28/16 22:58 Est GFR (MDRD) Non-Af >60 (>60 ml/min/1.73 sqM) 08/28/16 22:58 Glucose 120 mg/dL (74-99) H 08/28/16 22:58 Plasma Lactic Acid Jimi 1.4 mmol/L (0.7-2.0) 08/28/16 22:58 Calcium 8.2 mg/dL (8.4-10.2) L 08/28/16 22:58 Total Bilirubin 0.5 mg/dL (0.2-1.3) 08/28/16 22:58 AST 38 U/L (14-36) H 08/28/16 22:58 ALT 45 U/L (9-52) 08/28/16 22:58 Alkaline Phosphatase 90 U/L (38-126) 08/28/16 22:58 Total Protein 6.2 g/dL (6.3-8.2) L 08/28/16 22:58 Albumin 3.6 g/dL (3.5-5.0) 08/28/16 22:58 Urine Color Yellow 08/28/16 22:58 Urine Appearance Clear (Clear) 08/28/16 22:58 Urine pH 5.5 (5.0-8.0) 08/28/16 22:58 Ur Specific Grant 1.019 (1.001-1.035) 08/28/16 22:58 Urine Protein Trace (Negative) H 08/28/16 22:58 Urine Glucose (UA) Negative (Negative) 08/28/16 22:58 Urine Ketones 2+ (Negative) H 08/28/16 22:58 Urine Blood Negative (Negative) 08/28/16 22:58 Urine Nitrate Negative (Negative) 08/28/16 22:58 Urine Bilirubin Negative (Negative) 08/28/16 22:58 Urine Urobilinogen <2.0 mg/dL (<2.0) 08/28/16 22:58 Ur Leukocyte Esterase Negative (Negative) 08/28/16 22:58 Influenza Type A RNA Not Detected (Not Detectd) 08/29/16 07:50 Influenza Type B (PCR) Not Detected (Not Detectd) 08/29/16 07:50 CBC & Chem 7: 08/28/16 22:58 08/28/16 22:58 Assessment and Plan Plan: This is a 66-year-old female who presented to the hospital with signs of sepsis was likely secondary to acute tracheobronchitis in an immunocompromised host. Patient will be continued on azithromycin. Blood culture has status received. Continue supportive care. Further recommendations as patient progresses. The above dictated assessment and findings were discussed with Dr. Saini. The impression and plan of care have been directed as dictated. Maday Neri nurse practitioner acting as scribe for Dr. Saini. Time with Patient: Greater than 30
--- NOTE | 2016-08-29 12:23 | HP ---
DATE OF ADMISSION: CHIEF COMPLAINT: Fever, cough and difficulty breathing. HISTORY OF PRESENT ILLNESS: This is another admission for this 66-year-old white female who has a history of hypertension and was recently found to have CA of the breast. She is undergoing chemotherapy. A few days ago, she started to have some lung congestion shortness of breath and went to her oncologist. He started on (presumably) Augmentin to which she developed a rash. She then went to the emergency room and received 3 different medications, but she continued to have fever, chills, shortness of breath and some right-sided chest discomfort and came back to the emergency room and was admitted with pneumonia and possible sepsis. REVIEW OF SYSTEMS: She has had no hemoptysis, purulent sputum production, etc. She has been short of breath. She has had no change in vision or hearing, abdominal pain. She did vomit once. She has had no diarrhea, melena, hematochezia, jaundice, etc. Past medical history, family history and personal and social histories are all otherwise unremarkable and unchanged and can be found in her previous admitting and discharge summaries. She does not smoke. PHYSICAL EXAMINATION: Blood pressure 152/88 with a pulse of 101, respirations of 39, and temperature 101. GENERAL: She appeared to be acutely ill. Skin was warm and dry. Head, ears, eyes, nose, mouth, and throat were normal except for hair loss. Pupils are equal, round and reactive. Gaze is conjugate. Ears are clear. Nose, mouth, and throat were normal. Neck veins not distended. Thyroid was not enlarged. Chest demonstrated decreased breath sounds particularly at the right base with rales and rhonchi. Cardiac exam is normal. The abdomen is soft, nontender. EXTREMITIES: Normal. IMPRESSION: 1. Fever of undetermined origin. 2. Pneumonitis. 3. Carcinoma of the breast. 4. Hypertension. PLAN: 1. Bed rest. 2. IV fluids. 3. ( ). 4. Updrafts. 5. IV antibiotics. 6. Consult with Oncology.
[2016-08-29] MEDS: AZITHROMYCIN 500 MG TAB PO SCH (12:35)
--- NOTE | 2016-08-29 12:49 | P.HPIM ---
History of Present Illness H&P Date: 08/29/16 Chief Complaint: Short of breath fever This is a pleasant 66-year-old female who presented on the day of admission to the emergency room after patient stated over the last several days has gotten progressively more short of breath decreased endurance frequent nonproductive cough decrease appetite poor oral intake. Patient stated that several days prior developed a fever with chills contacted her oncologist Dr. steiner who gave the patient a prescription for Augmentin. Patient stated that she did start the antibiotic but did develop a rash under the chest with frequent loose stools. Patient stated she stopped the antibiotic developed the above- mentioned symptoms presented to the emergency room to be evaluated patient states what is bothering her the most is the dry frequent nonproductive cough interferes with the ability to sleep. Patient's currently receiving chemotherapy in the form of doxorubicin for breast cancer involving the right breast diagnosed in July 09. Patient's primary oncologist is patient states she has been coughing frequently resulting in right lower rib discomfort. According to the patient she receives chemotherapy every 2 weeks her next chemo treatment is this coming Sunday course #4. In the emergency room the chest x-ray showed no acute cardiopulmonary disease. The temp was elevated to 102.5. White count was elevated to 10 lactic acid 1.4 subsequently the patient has been admitted with a infectious disease pulmonology and oncology consultation being requested. Patients being treated for what appears to be sepsis suspect due to acute tracheobronchitis in a patient who is immune compromised Review of Systems Essentially unremarkable except as mentioned in the present illness Past Medical History Past Medical History: Cancer, Hyperlipidemia, Hypertension, Osteoarthritis (OA) Additional Past Medical History / Comment(s): Right sided breast cancer treated with Doxorubicin. History of Any Multi-Drug Resistant Organisms: None Reported Past Surgical History: Section, Tonsillectomy Additional Past Surgical History / Comment(s): arthroscopy to right knee, Past Anesthesia/Blood Transfusion Reactions: No Reported Reaction Past Psychological History: No Psychological Hx Reported Smoking Status: Never smoker Past Alcohol Use History: None Reported Additional Past Alcohol Use History / Comment(s): She has been a lifelong nonsmoker. She denies any medical marijuana, marijuana, street drug use. She drinks alcohol occasionally but none since she started chemotherapy. 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 She lives at home with her and 2 adult sons. There are no pets in the home. Past Drug Use History: None Reported - Past Family History Mother History Unknown: Yes Family Medical History: Cancer, Hypertension Additional Family Medical History / Comment(s): Breast cancer Medications and Allergies Home Medications Medication Instructions Recorded Confirmed Type Atenolol 25 mg PO DAILY 08/27/16 08/28/16 History Ibuprofen [Advil] 400 mg PO BID 08/27/16 08/28/16 History Lidocaine-Prilocaine Cream [Emla 1 applic TOPICAL DAILY PRN 08/27/16 08/28/16 History Cream 2.5%/2.5%] Lovastatin [Mevacor] 20 mg PO HS 08/27/16 08/28/16 History Multivitamins, Thera [Multivitamin] 1 tab PO DAILY 08/27/16 08/28/16 History Acetaminophen Tab [Tylenol Tab] 500 mg PO Q6H PRN 08/28/16 08/28/16 History Albuterol Inhaler [Ventolin Hfa 2 puff INHALATION RT-Q6H PRN 08/28/16 08/28/16 History Inhaler] Calcium Carbonate/Vitamin D3 2 tab PO DAILY 08/28/16 08/28/16 History [Calcium 600-Vit D3 200 Tablet] Psyllium Husk [Psyllium] 0.4 gm PO HS 08/28/16 08/28/16 History Allergies Allergy/AdvReac Type Severity Reaction Status Date / Time amoxicillin [From Augmentin] Allergy Rash/Hives/ Verified 08/28/16 23:08 Diarrhea chlorpheniramine Allergy Itching Verified 08/28/16 23:08 [From Tussionex] clavulanic acid Allergy Rash/Hives/ Verified 08/28/16 23:08 [From Augmentin] Diarrhea doxycycline Allergy Itching Verified 08/28/16 23:08 hydrocodone [From Tussionex] Allergy Itching Verified 08/28/16 23:08 moxifloxacin [From Avelox] Allergy Itching Verified 08/28/16 23:08 Physical Exam Vitals: Vital Signs Temp Pulse Pulse Resp BP BP Pulse Ox 08/29/16 07:00 99.4 F 112 H 20 125/67 96 08/29/16 04:28 98.3 F 08/29/16 01:51 99.4 F 08/29/16 01:50 98.7 F 109 H 16 126/53 96 08/29/16 01:33 112 H 20 121/77 08/29/16 00:44 102.3 F H 112 H 16 124/58 95 Intake and Output 08/28/16 08/29/16 08/29/16 22:59 06:59 14:59 Other: Voiding Method Toilet Toilet # Voids 4 GENERAL APPEARANCE: 66-year-old female patient is alert, oriented, in no acute distress sitting up on the edge of the bed. Frequent dry nonproductive cough noted. VITAL SIGNS: Reviewed HEENT: Head is normocephalic and atraumatic. Pupils are equal and reactive. The nares are patent. Oropharynx is clear without lesions. NECK: Supple without lymphadenopathy. Traches midline. HEART: S1, S2. Regular rate and rhythm. No murmur noted denying chest pain LUNGS: Posterior diminished at the bases poor air entry dry nonproductive cough. No use of accessory muscles to breathe. No shortness of breath with conversation. No wheezing noted ABDOMEN: Soft, nontender, nondistended with good bowel sounds. No peritoneal signs. No palpable organomegaly or masses. EXTREMITIES: Normal skin color and turgor. No cyanosis, rash, ulceration, clubbing or edema. Radial pedal pulses are 2/4 bilaterally. NEUROLOGICAL: No focal deficits. Strength and sensation are grossly intact. Skin no evidence of the skin rash Results CBC & Chem 7: 08/28/16 22:58 08/28/16 22:58 Thrombosis Risk Factor Assmnt - Choose All That Apply Each Risk Factor Represents 2 Points: Age 61-74 years, Malignancy Thrombosis Risk Factor Assessment Total Risk Factor Score: 4 Thrombosis Risk Factor Assessment Level: Moderate Risk Assessment and Plan Plan: Impression Present on admission febrile leukocytosis sepsis suspect due to acute tracheobronchitis and a immune compromised host New diagnosis of right breast cancer June 2016 currently receiving chemotherapy CAT scan of the chest no evidence of a pulmonary emboli History of hypertension Plan Await infectious diseases recommendations in regards to antibiotic therapy Respiratory treatments as ordered DVT and GI prophylaxis Use of incentive spirometer use of a 1 hour while awake Resume home meds as appropriate Consult Dr. Benavides Consult pulmonology Follow up on urine and blood cultures Further recommendations pending will follow The above dictated assessment and findings were discussed with dr ruthven Impression and the plan of care have been dictated as directed. Aliza Rodriguez nurse practitioner acting as a scribe for dr henao
[2016-08-29] MEDS: IPRATROPIUM-ALBUTEROL 3 ML NEB INHALATION SCH ×3 (13:05→19:35)
[2016-08-29 14:33] VITALS: RESP 16
[2016-08-29] MEDS: methylPREDNISolone SOD SUCCI 125 MG/2 ML VIAL IV SCH ×3 (14:41→23:55)
[2016-08-29 14:57] VITALS: BMI 27.9
--- NOTE | 2016-08-29 16:34 | CONS ---
DATE OF CONSULTATION: 08/29/2016 HISTORY OF PRESENT ILLNESS: Patient is a 66-year-old female with recent diagnosis of right-sided breast cancer and is undergoing chemotherapy. Patient several days ago started to experience a fever with chills and called her oncologist and was put on Augmentin. Patient developed a rash underneath her breasts with associated loose stools from the Augmentin, so she stopped that. A few days later patient started to experience worsening shortness of breath, which has been occurring over these last few days with a nonproductive cough, loose-sounding, with sinus drainage which is becoming thicker with some bloody streaks and a decreased appetite. Patient came to the emergency room for further evaluation. In the ER she had a temperature of 102.5 and she was admitted for possible sepsis. Past medical history is positive for: 1. Right breast cancer currently receiving chemo. 2. Hyperlipidemia. 3. Hypertension. 4. Osteoarthritis. Past surgical history is positive for: 1. . 2. Tonsillectomy. 3. Right knee arthroscopy. ALLERGIES are NUMEROUS and include: 1. AMOXICILLIN. 2. CHLORPHENIRAMINE. 3. CLAVULANIC ACID. 4. DOXYCYCLINE. 5. HYDROCODONE. 6. AVELOX. Medications the patient is on at home include: 1. Psyllium 0.4 grams p.o. at bedtime. 2. Theragran multivitamin 1 tab p.o. daily. 3. Mevacor 20 mg p.o. at bedtime. 4. Emla cream topically daily p.r.n. 5. Advil 400 mg p.o. b.i.d. 6. Calcium carbonate with vitamin D3 two tabs p.o. daily. 7. Tessalon Perles 200 mg p.o. t.i.d. 8. Zithromax, started yesterday, 500 mg p.o. daily. 9. Atenolol 25 mg p.o. daily. 10. Ventolin HFA two puffs q.6 hours p.r.n. 11. Tylenol 500 mg p.o. q.6 hours p.r.n. SOCIAL HISTORY: Patient is a nonsmoker; never smoked. Denies any alcohol intake. Denies any illicit drug use. 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 Patient does not have any pets. FAMILY HISTORY: Mother of breast cancer at the age of 89. Patient was estranged from her father, so the history is unknown. REVIEW OF SYSTEMS: GENERAL: Positive for fever and chills prior to the worsening shortness of breath and decreased appetite. HEENT: Negative for any headaches other than maybe from coughing. Does get dizzy and lightheaded with coughing episodes as well. Denies any acute visual changes. Denies any difficulty hearing. Denies any nosebleeds; however, some of the sinus drainage does have some bloody streaks, which her oncologist is aware of and said was normal with chemotherapy. Patient denies any sore throat or difficulty swallowing. RESPIRATORY: Positive for worsening shortness of breath with a cough, nonproductive; however, does have thick nasal drainage. CARDIOVASCULAR: Negative for chest pain. Patient does complain of some right rib pain from coughing. Denies any palpitations. GI: Negative for abdominal pain. Did have an episode of emesis in the ER, but that was again a result of coughing. Denies any nausea or vomiting at this time. Denies any constipation. Loose stools are improving and becoming more formed. : Negative for any dysuria, hematuria or frequency. ENDOCRINE: Negative for diabetes mellitus or thyroid disease. MUSCULOSKELETAL: Positive for osteoarthritis. NEUROLOGIC: Negative for any history of seizures, numbness or tingling in the extremities. PSYCHIATRIC: Negative for any anxiety or depression. PHYSICAL EXAMINATION: GENERAL: This is a pleasant 66-year-old female who was seen lying in bed. She is awake and alert, frustrated because of the constant cough. Patient is in no acute distress. VITAL SIGNS: Temperature is 99.4. Heart rate is 82. Respiratory rate is 20. Blood pressure is 125/67. Oxygen saturations are 96% on 2 L oxygen via nasal cannula. HEENT: Head is normocephalic, atraumatic. Pupils equal, round, react to light. Ears and nose: no discharge is noted. Mouth: Moist mucous membranes. Mallampati class IV. Unable to visualize the back of the patient's throat. NECK: Short, thick, supple. Trachea is midline. LUNGS: Diminished breath sounds throughout and not moving much air. No clear rales or wheezes. HEART: S1 and S2 are heard, intermittently tachycardic. Regular. ABDOMEN: Soft. Bowel sounds are heard. EXTREMITIES: No edema. NEUROLOGIC: Patient is awake, alert, oriented. LABS: White count is 10.4. Hemoglobin is 10.2. Hematocrit is 29.2 with 146,000 platelets. Sodium is 137. Potassium is 3.6. Chloride is 102. CO2 is 26. Anion gap is 9. BUN is 9, creatinine 0.79. Glucose is 120. Plasma lactic acid venous is 1.4. Calcium is 8.2. Total bilirubin is 0.5, AST 38, ALT 45, alkaline phosphatase 90. Total protein 6.2. Albumin is 3.6. Urinalysis shows trace protein, negative nitrate and negative leukocyte esterase. Influenza type A and B not detected. IMAGING: Chest CTA shows no significant acute pulmonary embolism is noted in the slightly limited study with multiple artifacts in the peripheral and central pulmonary arterial branches. No significant focal pneumonia is noted. Cholelithiasis. Chest x-ray: No active cardiopulmonary disease; note that the chest CTA was done on August 27. IMPRESSION: 1. Acute bronchospasms. 2. Shortness of breath. 3. Possible sepsis. 4. Right breast cancer, currently on chemotherapy. 5. History of hypertension. PLAN: Continue bronchodilators with oxygen to maintain saturations greater than or equal to 90%. Will add aerosolized steroids and IV steroids. Will also add DVT prophylaxis with heparin subcutaneously q.8 hours, incentive spirometry 10 times q.1 hour while awake. Check an echocardiogram. Continue GI prophylaxis and we will continue to follow patient closely with you, making further changes as necessary. Thank you for the consultation.
[2016-08-29] MEDS: HEPARIN SODIUM,PORCINE 5,000 UNIT/ML 1 ML VIAL SQ SCH ×2 (17:35→23:55)
[2016-08-29] MEDS: BUDESONIDE 0.5 MG/2 ML NEBU INHALATION SCH (19:35)
[2016-08-29] MEDS ORDERED: BENZONATATE 100 MG CAP PO PRN (20:24)
--- NOTE | 2016-08-29 20:24 | P.CON ---
Consult Note - . Consult date: 08/29/16 Assessment/Plan:: This is a 66-year-old female. She has a past medical history significant for right-sided breast cancer under the care of Dr. Yee. She is currently receiving chemotherapy in the form of Doxorubicin. She receives this every 2 weeks and her next dose is due this Sunday #4 and she states recently Neulasta was added. Since last Sunday, she has had a cough and runny nose. She denies any sore throat. She states her right lower ribs are sore from coughing so much. She is not able to sleep due to the cough. She was given Augmentin by Dr. Yee and took this for 2 days and then developed a rash under her breast/upper abdomen and also diarrhea. She called Dr. Cheema and the Augmentin was discontinued. She then presented to the emergency center on August 27. She had a temperature of 101.1, pulse of 120. Chest x-ray showed no acute cardiopulmonary process. She underwent a CAT scan of the brain that showed no PE and no pneumonia. She was discharged home on an albuterol inhaler, 3 day Z-Seng, Janna Kaur and a follow-up with her physician in the next 1-2 days. On Sunday night she again had a fever of 100.5 at home and she came into [facility] emergency center for evaluation. Repeat chest x-ray showed no active cardiopulmonary disease. Temperature max in the emergency center was 102.5 with pulse of 117. White count was at 10.4, hemoglobin 10.2 and platelet count 146. Influenza testing a and B were negative. Urinalysis was clear, nitrite and leukoesterase negative, ketones 2+ . Lactic acid 1.4. Patient was given dose of ceftriaxone and dose of azithromycin IV and admitted to the oncology unit. Blood culture has status received. Consult in place for oncology. Please see the consult note is dictated by nurse practitioner Mrs. Maday Neri. Pleasant woman who is receiving chemotherapy for her breast carcinoma. Generally he has been doing relatively well to this acute onset of illness. Likely has evidence of a bronchitis potentially viral potentially bacterial. Antibiotics and process for now we'll try to suppress her cough to improve her comfort. Cultures are in process. I agree with evaluation, assessment and plan as dictated by nurse practitioner Mrs. Maday Neri.
[2016-08-29 20:27] LABS: Glucose,Whole Blood 217 mg/dL (75-99)
[2016-08-29] MEDS: INSULIN LISPRO (humaLOG) 300 UNIT/3 ML VIAL SQ SCH (20:28)
[2016-08-29] MEDS: ATORVASTATIN 10 MG TAB PO SCH (20:28)
[2016-08-29] MEDS: PSYLLIUM HUSK 100% 6 GM PACKET PO SCH (20:29)
[2016-08-29] MEDS: guaiFENesin-Coden 100-10MG/5ML 10 ML CUP PO PRN (20:58)
--- NOTE | 2016-08-29 21:39 | P.CONS ---
History of Present Illness - Reason for Consult Consult date: 08/29/16 Fever, SIRS. Breast cancer on chemo - History of Present Illness The patient is a 66-year-old lady, well known to our service. She is followed by Dr. steiner in the outpatient setting. She was diagnosed with a right-sided T2 breast cancer, in 07/05. The tumor was weakly ER/MD positive and was HER-2/uvaldo negative. The patient was started on neoadjuvant chemotherapy with dose dense Adriamycin and Cytoxan, to be followed by Taxol. She is status post 3 cycles of dose dense Adriamycin and Cytoxan. She has been receiving Neulasta support. She was seen in the office on 08/24/2016, with complains of chest congestion, with persistent cough productive of clear sputum. At that time she was complaining of generalized malaise and weakness but not fever. She was given a prescription for an antibiotic. However her symptoms did not improve. In addition, she developed a rash across her chest as well as diarrhea. She therefore went into the ER on 08/27/2016. CTA of the chest was negative for PE. Chest x-ray did not reveal any pneumonia. Her antibiotic was discontinued and she was switched over to azithromycin. She called the answering service yesterday complaining of still not feeling well, with additional symptoms of nausea and an episode of vomiting. In addition she she had developed a fever. She was therefore is to go back into the emergency room. In the ER, temperature was as high as 102+. Heart rate was increased in the 110-120 range. Chest x-ray was again negative for evidence of pneumonia. A UA was also negative. The patient was therefore admitted for further management. Of note, her white count on 08/27/2016 as well as yesterday were normal, indicating recovery from chemotherapy Review of Systems Constitutional: Reports fever, Reports malaise, Reports weakness Eyes: denies blurred vision, denies pain Ears: deny: decreased hearing, ear discharge, earache, tinnitus Ears, nose, mouth and throat: Reports nasal congestion Breasts: Reports as per HPI Cardiovascular: Reports dyspnea on exertion Respiratory: Reports congestion, Reports cough with sputum Gastrointestinal: Reports nausea Genitourinary: Denies dysuria, Denies hematuria Menstruation: Reports postmenopausal Musculoskeletal: Reports myalgias Integumentary: Reports rash (resolved) Neurological: Reports weakness Endocrine: Denies fatigue, Denies weight change Hematologic/Lymphatic: Reports as per HPI Past Medical History Past Medical History: Cancer, Hyperlipidemia, Hypertension, Osteoarthritis (OA) Additional Past Medical History / Comment(s): breast cancer, chemo History of Any Multi-Drug Resistant Organisms: None Reported Past Surgical History: Section, Tonsillectomy Additional Past Surgical History / Comment(s): arthroscopy to right knee, Past Anesthesia/Blood Transfusion Reactions: No Reported Reaction Past Psychological History: No Psychological Hx Reported Smoking Status: Never smoker Past Alcohol Use History: None Reported Past Drug Use History: None Reported - Past Family History Mother History Unknown: Yes Family Medical History: Cancer, Hypertension Additional Family Medical History / Comment(s): Breast cancer Medications and Allergies Home Medications Medication Instructions Recorded Confirmed Type Atenolol 25 mg PO DAILY 08/27/16 08/28/16 History Ibuprofen [Advil] 400 mg PO BID 08/27/16 08/28/16 History Lidocaine-Prilocaine Cream [Emla 1 applic TOPICAL DAILY PRN 08/27/16 08/28/16 History Cream 2.5%/2.5%] Lovastatin [Mevacor] 20 mg PO HS 08/27/16 08/28/16 History Multivitamins, Thera [Multivitamin] 1 tab PO DAILY 08/27/16 08/28/16 History Acetaminophen Tab [Tylenol Tab] 500 mg PO Q6H PRN 08/28/16 08/28/16 History Albuterol Inhaler [Ventolin Hfa 2 puff INHALATION RT-Q6H PRN 08/28/16 08/28/16 History Inhaler] Calcium Carbonate/Vitamin D3 2 tab PO DAILY 08/28/16 08/28/16 History [Calcium 600-Vit D3 200 Tablet] Psyllium Husk [Psyllium] 0.4 gm PO HS 08/28/16 08/28/16 History Allergies Allergy/AdvReac Type Severity Reaction Status Date / Time amoxicillin [From Augmentin] Allergy Rash/Hives/ Verified 08/28/16 23:08 Diarrhea chlorpheniramine Allergy Itching Verified 08/28/16 23:08 [From Tussionex] clavulanic acid Allergy Rash/Hives/ Verified 08/28/16 23:08 [From Augmentin] Diarrhea doxycycline Allergy Itching Verified 08/28/16 23:08 hydrocodone [From Tussionex] Allergy Itching Verified 08/28/16 23:08 moxifloxacin [From Avelox] Allergy Itching Verified 08/28/16 23:08 Physical Exam Vitals: Vital Signs Temp Pulse Pulse Resp BP BP Pulse Ox 08/29/16 07:00 99.4 F 112 H 20 125/67 96 08/29/16 04:28 98.3 F 08/29/16 01:51 99.4 F 08/29/16 01:50 98.7 F 109 H 16 126/53 96 08/29/16 01:33 112 H 20 121/77 08/29/16 00:44 102.3 F H 112 H 16 124/58 95 Intake and Output 08/28/16 08/29/16 08/29/16 22:59 06:59 14:59 Other: Voiding Method Toilet Toilet # Voids 4 - Constitutional General appearance: mild distress - EENT Eyes: EOMI, PERRLA ENT: hearing grossly normal, normal oropharynx - Neck Neck: no lymphadenopathy Thyroid: bilateral: normal size - Respiratory Respiratory: bilateral: wheezing - Cardiovascular Rhythm: regular Heart sounds: normal: S1, S2 - Gastrointestinal General gastrointestinal: normal bowel sounds, soft - Integumentary Integumentary: normal - Neurologic Neurologic: CNII-XII intact - Musculoskeletal Musculoskeletal: generalized weakness, strength equal bilaterally - Psychiatric Psychiatric: A&O x's 3, appropriate affect Results CBC & Chem 7: 08/28/16 22:58 08/28/16 22:58 Chest x-ray: report reviewed CT scan - chest: report reviewed Assessment and Plan (1) SIRS (systemic inflammatory response syndrome) Narrative/Plan: The patient has presented with fever, greater than 1020 Fahrenheit, as well as increased heart rate, consistent with SIRS. This seems to be due to tracheo- bronchitis, based on the clinical picture. The patient had initially developed symptoms, when her white blood cell counts were low. However at that time she did not have a fever. By the time fever developed, white count did recover into the normal range. The patient feels somewhat better with the hydration and continued by mouth antibiotics but is still fairly symptomatic. ID has been consulted. Await the recommendations regarding antibiotics, as the patient reports hypersensitivity to various antibiotic classes. Cultures are pending. Status: Acute (2) Chemotherapy induced diarrhea Narrative/Plan: Stool testing was ordered, the patient states that her diarrhea has already improved this morning. This is expected, as white count recovers, and is indicative that it is not infectious in nature Status: Acute (3) Cancer of breast Narrative/Plan: The patient will resume chemotherapy as an outpatient, once her acute condition resolves. She is receiving Neulasta support. As noted, white blood cell count has already recovered. Platelet counts are normal. Hemoglobin is reduced, but is in a safe range. We'll continue to monitor blood counts Status: Acute
[2016-08-30] MEDS: SODIUM CHLORIDE 0.9% 1,000 ML IV SCH ×2 (04:21→17:27)
[2016-08-30] MEDS: methylPREDNISolone SOD SUCCI 125 MG/2 ML VIAL IV SCH ×3 (05:39→17:26)
[2016-08-30] MEDS: guaiFENesin-Coden 100-10MG/5ML 10 ML CUP PO PRN ×3 (05:39→20:26)
[2016-08-30 07:04] LABS: Glucose,Whole Blood 164 mg/dL (75-99)
[2016-08-30] MEDS: INSULIN LISPRO (humaLOG) 300 UNIT/3 ML VIAL SQ SCH ×4 (07:31→20:23)
[2016-08-30] MEDS: HEPARIN SODIUM,PORCINE 5,000 UNIT/ML 1 ML VIAL SQ SCH ×2 (07:31→17:26)
[2016-08-30] MEDS: FAMOTIDINE 20 MG TAB PO SCH (07:32)
[2016-08-30] MEDS: AZITHROMYCIN 500 MG TAB PO SCH (07:32)
[2016-08-30] MEDS: MULTIVITAMINS, THERA 1 EACH TAB PO SCH (07:32)
[2016-08-30] MEDS: ATENOLOL 25 MG TAB PO SCH (07:32)
[2016-08-30] MEDS: CALCIUM CARB-VIT D 500MG-200UN 1 EACH TAB PO SCH (07:32)
[2016-08-30 07:44] LABS: ALT 42 U/L (9-52); AST 43 U/L (14-36); Alkaline Phosphatase 74 U/L (38-126); Anion Gap 9 mmol/L; Blood Urea Nitrogen 8 mg/dL (7-17); Calcium 7.4 mg/dL (8.4-10.2); Carbon Dioxide 23 mmol/L (22-30); Chloride 110 mmol/L (98-107); Glucose 152 mg/dL (74-99); Non-African American GFR(MDRD) >60 (>60 ml/min/1.73 sqM); Potassium 3.5 mmol/L (3.5-5.1); Sodium 142 mmol/L (137-145); Total Bilirubin 0.4 mg/dL (0.2-1.3); Total Protein 5.2 g/dL (6.3-8.2)
--- NOTE | 2016-08-30 08:13 | XR ---
EXAMINATION TYPE: XR chest 2V DATE OF EXAM: 08/30/2016 6:49 AM COMPARISON: 08/28/2016 INDICATION: Previous abnormal, history of right breast cancer TECHNIQUE: Frontal and lateral views of the chest are obtained. FINDINGS: The heart size is normal. The pulmonary vasculature is normal. The lungs are clear. Port is present on the left tip in the superior vena cava region. IMPRESSION: 1. No acute pulmonary process.
[2016-08-30] MEDS: BUDESONIDE 0.5 MG/2 ML NEBU INHALATION SCH ×2 (08:31→19:10)
[2016-08-30] MEDS: IPRATROPIUM-ALBUTEROL 3 ML NEB INHALATION SCH ×4 (08:31→19:10)
[2016-08-30 08:45] LABS: Anisocytosis Slight; CH 32.2; CHCM 34.3; HCT 26.4 % (34.0-46.0); HGB 8.8 gm/dL (11.4-16.0); Immature Gran Flag Slight; MCH 31.5 pg (25.0-35.0); MCHC 33.3 g/dL (31.0-37.0); MCV 94.6 fL (80.0-100.0); Macrocytosis Slight; Mean Platelet Volume 7.2; RBC 2.79 m/uL (3.80-5.40); RDW 16.5 % (11.5-15.5); WBC 17.1 k/uL (3.8-10.6); WBC (Perox) 17.66
[2016-08-30 10:36] LABS: Add Differential Manual Differential
[2016-08-30 10:41] LABS: Manual Review Performed; Metamyelocytes % 5.5 %; Myelocytes % 5.5 %; Nucleated Red Blood Cells 0 /100 WBC (0-0); Total Cells Counted 200
[2016-08-30 10:42] LABS: Polychromasia Present
--- NOTE | 2016-08-30 11:13 | ECHOF ---
Referral Reason:tachycardia MEASUREMENTS -------- HEIGHT: 154.9 cm WEIGHT: 67.1 kg BP: 114/70 RVIDd: 2.4 cm (< 3.3) IVSd: 1.1 cm (0.6 - 1.1) LVIDd: 4.1 cm (3.9 - 5.3) LVPWd: 0.8 cm (0.6 - 1.1) IVSs: 1.5 cm LVIDs: 2.5 cm LVPWs: 1.6 cm LA Diam: 3.1 cm (2.7 - 3.8) Ao Diam: 2.8 cm (2.0 - 3.7) AV Cusp: 1.8 cm (1.5 - 2.6) LA Diam: 3.0 cm (2.7 - 3.8) MV EXCURSION: 9.414 mm (> 18.000) MV EF SLOPE: 51 mm/s (70 - 150) EPSS: 0.5 cm MV E Slava: 1.00 m/s MV DecT: 138 ms MV A Slava: 0.94 m/s MV E/A Ratio: 1.06 RAP: 5.00 mmHg RVSP: 27.23 mmHg FINDINGS -------- Resting tachycardia (HR>100bpm). This was a technically good study. Left ventricular wall thickness is normal. Overall left ventricular systolic function is normal with, an EF between 55 - 60 %. The right ventricle is normal in size. Normal LA size by volume 22+/-6 ml/m2. The right atrium is normal in size. Aortic valve is trileaflet and is mildly thickened. Mild mitral annular calcification present. There is trace mitral regurgitation. Trace tricuspid regurgitation present. Right ventricular systolic pressure is normal at < 35 mmHg. Pulmonic valve appears structurally normal. The aortic root size is normal. Normal inferior vena cava with normal inspiratory collapse consistent with estimated right atrial pressure of 5 mmHg. Echo free space may represent effusion or a pericardial fat pad. CONCLUSIONS -------- 1. Resting tachycardia (HR>100bpm). 2. There is trace mitral regurgitation. 3. Trace tricuspid regurgitation present. 4. Right ventricular systolic pressure is normal at < 35 mmHg. 5. Pulmonic valve appears structurally normal. 6. The aortic root size is normal. 7. Echo free space may represent effusion or a pericardial fat pad. 8. This was a technically good study. 9. Left ventricular wall thickness is normal. 10. Overall left ventricular systolic function is normal with, an EF between 55 - 60 %. 11. The right ventricle is normal in size. 12. Normal LA size by volume 22+/-6 ml/m2. 13. The right atrium is normal in size. 14. Aortic valve is trileaflet and is mildly thickened. 15. Mild mitral annular calcification present. ORAL SURGERY ASSISTANT: Ginger Avila RDCS
[2016-08-30 11:28] LABS: Glucose,Whole Blood 233 mg/dL (75-99)
--- NOTE | 2016-08-30 12:16 | PN ---
DATE OF SERVICE: 08/30/2016 HISTORY OF PRESENT ILLNESS: The patient is a 66-year-old female who has a known history of right-sided breast cancer with chemotherapy and she developed problems with fever, chills and rash and loose stools and started developing problems with worsening shortness of breath and nonproductive cough. Subsequently, she came to the emergency room with a fever of 102.5 and she was admitted at that time. She is seen today. She states that she is feeling a little bit jittery, which could be related to her breathing treatments and steroids. She still has nonproductive cough. She is denying any nausea or vomiting at this time and is eating okay. She denies any problems with chest pain. She denies any problems with going to the bathroom at this time. She has been having some difficulty with sleeping and is being followed by Oncology and Infectious Disease. On physical examination, vital signs show temperature 98.1 today, heart rate 100, blood pressure 105/59, respiratory rate 16, oxygen saturation 90% on room air. LABS: WBC 17.1, hemoglobin 8.8, hematocrit 26.4, platelets are 158. Sodium is142, potassium 3.5, chloride 110, carbon dioxide 23, BUN 8, creatinine 0.68. Glucose 164. Calcium 7.4. Total bilirubin 0.4, AST 43, ALT 42, alkaline phosphatase 74. Total protein 5.2. Albumin 2.8. Blood cultures with no growth so far. Chest x-ray from today shows no acute pulmonary process. Echocardiogram showed RVSP less than 35 mmHg, EF of 55% to 60%. GENERAL: She is a 66-year-old female who is in no acute respiratory distress at this time. HEENT: Pupils are reactive. Mucous membranes moist. She complains of some jitteriness just her hands. Neck is supple. LUNGS: Sounds diminished throughout. CARDIOVASCULAR: S1 and S2 is heard, tachy at times. ABDOMEN: Soft. Bowel sounds heard. EXTREMITIES: No edema. NEUROLOGIC: She is awake, alert. IMPRESSION: 1. Bronchospasms. 2. Right breast cancer. 3. History of hypertension. 4. Sepsis with systemic inflammatory response syndrome. PLAN: Medications have been reviewed. Continue with nebulizer treatments and antibiotics as ordered. Continue with cough medication. Continue with GI and DVT prophylaxis. Continue with steroids. We will start tapering down tomorrow. Increase activity as tolerated. Continue with oxygen to keep sats 88% or better. Await her culture results. We will continue to follow patient with you and make further changes as necessary.
--- NOTE | 2016-08-30 14:13 | PN ---
CHIEF COMPLAINT: Pneumonitis. HISTORY OF PRESENT ILLNESS: This lady is doing fairly well and breathing has improved. Appetite has slightly improved. PHYSICAL EXAM: Breath sounds are clear on both sides now. The cardiac exam is normal and the abdomen is soft, nontender. IMPRESSION: 1. Pneumonitis. 2. Carcinoma of the breast. PLAN: Increase activity.
[2016-08-30 16:46] LABS: Glucose,Whole Blood 151 mg/dL (75-99)
[2016-08-30 20:15] LABS: Glucose,Whole Blood 258 mg/dL (75-99)
[2016-08-30] MEDS: PSYLLIUM HUSK 100% 6 GM PACKET PO SCH (20:23)
[2016-08-30] MEDS: ATORVASTATIN 10 MG TAB PO SCH (20:23)
[2016-08-30] MEDS ORDERED: MONTELUKAST 10 MG TAB PO SCH (21:00)
--- NOTE | 2016-08-30 22:25 | P.PN ---
Subjective Principal diagnosis: fever This is a 66-year-old female. She has a past medical history significant for right-sided breast cancer under the care of Dr. Yee. She is currently receiving chemotherapy in the form of Doxorubicin. She receives this every 2 weeks and her next dose is due this Sunday #4 and she states recently Neulasta was added. Since last Sunday, she has had a cough and runny nose. She denies any sore throat. She states her right lower ribs are sore from coughing so much. She is not able to sleep due to the cough. She was given Augmentin by Dr. Yee and took this for 2 days and then developed a rash under her breast/upper abdomen and also diarrhea. She called Dr. Cheema and the Augmentin was discontinued. She then presented to the emergency center on August 27. She had a temperature of 101.1, pulse of 120. Chest x-ray showed no acute cardiopulmonary process. She underwent a CAT scan of the brain that showed no PE and no pneumonia. She was discharged home on an albuterol inhaler, 3 day Rehana-Janna Ellsworth and a follow-up with her physician in the next 1-2 days. On Sunday night she again had a fever of 100.5 at home and she came into [facility] emergency center for evaluation. Repeat chest x-ray showed no active cardiopulmonary disease. Temperature max in the emergency center was 102.5 with pulse of 117. White count was at 10.4, hemoglobin 10.2 and platelet count 146. Influenza testing a and B were negative. Urinalysis was clear, nitrite and leukoesterase negative, ketones 2+ . Lactic acid 1.4. Patient was given dose of ceftriaxone and dose of azithromycin IV and admitted to the oncology unit. Blood culture has status received. Consult in place for oncology. Patient is now feeling considerably better. The cough medications and antibiotic therapy she is no longer coughing continuous. Is now having just intermittent bouts of cough. She's having a good sputum production. The congestion in her chest is improving. She is resting more comfortably. She is having is to begin fevers or chills today. Overall feeling considerably better. Objective - Vital Signs Vital signs: Vital Signs Temp 97.4 F L 08/30/16 14:57 Pulse 102 H 08/30/16 19:23 Resp 16 08/30/16 14:57 BP 129/74 08/30/16 14:57 Pulse Ox 95 08/30/16 15:14 Intake & Output 08/30/16 08/30/16 08/31/16 06:59 18:59 06:59 Intake Total 1440 Balance 1440 Weight 67.132 kg Intake: IV 1200 Sodium Chloride 0.9% 1, 1200 000 ml @ 100 mls/hr IV . Q10H [facility] Rx#:[id number] Oral 240 Other: Voiding Method Toilet Toilet Incontinent Incontinent # Voids 2 4 - Exam Gen: This is a 66-year-old female. She is sitting up in bed and appears to be in no acute distress except for a noted hacking cough. HEENT: Head is atraumatic, normocephalic. Pupils equal, round. Sclerae is anicteric. NECK: Supple. No JVD. No lymphadenopathy. No thyromegaly. LUNGS: Coarse breath sounds scattered throughout now with marked improvement of almost Occasional wheeze. No intercostal retractions. HEART: Regular rate and rhythm. No murmur. Tenderness to the right lower ribs anteriorly. ABDOMEN: Soft. Bowel sounds are present. No masses. No tenderness. No rashes noted. EXTREMITIES: No pedal edema. No calf tenderness. Dorsalis pedis +2 bilaterally. NEUROLOGICAL: Patient is awake, alert and oriented x3. Cranial nerves 2 through 12 are grossly intact. - Labs CBC & Chem 7: 08/30/16 07:04 08/30/16 07:04 Labs: Abnormal Lab Results - Last 24 Hours (Table) 08/30/16 08/30/16 08/30/16 Range/Units 07:01 07:04 07:04 WBC 17.1 H (3.8-10.6) k/uL RBC 2.79 L (3.80-5.40) m/uL Hgb 8.8 L (11.4-16.0) gm/dL Hct 26.4 L (34.0-46.0) % RDW 16.5 H (11.5-15.5) % Neutrophils # (Manual) 14.7 H (1.3-7.7) k/uL Lymphocytes # (Manual) 0.1 L (1.0-4.8) k/uL Chloride 110 H (98-107) mmol/L Glucose 152 H (74-99) mg/dL POC Glucose (mg/dL) 164 H (75-99) mg/dL Calcium 7.4 L (8.4-10.2) mg/dL AST 43 H (14-36) U/L Total Protein 5.2 L (6.3-8.2) g/dL Albumin 2.8 L (3.5-5.0) g/dL 08/30/16 08/30/16 08/30/16 Range/Units 11:23 16:44 20:13 WBC (3.8-10.6) k/uL RBC (3.80-5.40) m/uL Hgb (11.4-16.0) gm/dL Hct (34.0-46.0) % RDW (11.5-15.5) % Neutrophils # (Manual) (1.3-7.7) k/uL Lymphocytes # (Manual) (1.0-4.8) k/uL Chloride (98-107) mmol/L Glucose (74-99) mg/dL POC Glucose (mg/dL) 233 H 151 H 258 H (75-99) mg/dL Calcium (8.4-10.2) mg/dL AST (14-36) U/L Total Protein (6.3-8.2) g/dL Albumin (3.5-5.0) g/dL Laboratory Results WBC 17.1 k/uL (3.8-10.6) H 08/30/16 07:04 RBC 2.79 m/uL (3.80-5.40) L 08/30/16 07:04 Hgb 8.8 gm/dL (11.4-16.0) L 08/30/16 07:04 Hct 26.4 % (34.0-46.0) L 08/30/16 07:04 MCV 94.6 fL (80.0-100.0) 08/30/16 07:04 MCH 31.5 pg (25.0-35.0) 08/30/16 07:04 MCHC 33.3 g/dL (31.0-37.0) 08/30/16 07:04 RDW 16.5 % (11.5-15.5) H 08/30/16 07:04 Plt Count 158 k/uL (150-450) 08/30/16 07:04 Neutrophils % (Manual) 80.0 % 08/30/16 07:04 Band Neutrophils % 6.0 % 08/30/16 07:04 Lymphocytes % (Manual) 0.5 % 08/30/16 07:04 Monocytes % (Manual) 2.5 % 08/30/16 07:04 Eosinophils % (Manual) 1.0 % 08/28/16 22:58 Metamyelocytes % 5.5 % 08/30/16 07:04 Myelocytes % 5.5 % 08/30/16 07:04 Neutrophils # (Manual) 14.7 k/uL (1.3-7.7) H 08/30/16 07:04 Lymphocytes # (Manual) 0.1 k/uL (1.0-4.8) L 08/30/16 07:04 Monocytes # (Manual) 0.4 k/uL (0-1.0) 08/30/16 07:04 Eosinophils # (Manual) 0.1 k/uL (0-0.7) 08/28/16 22:58 Nucleated RBCs 0 /100 WBC (0-0) 08/30/16 07:04 Manual Slide Review Performed 08/30/16 07:04 Toxic Granulation Present 08/28/16 22:58 Toxic Vacuolation Present 08/28/16 22:58 Polychromasia Present 08/30/16 07:04 Anisocytosis Slight 08/30/16 07:04 Macrocytosis Slight 08/30/16 07:04 D-Dimer 1.18 mg/L FEU (<0.60) H 08/29/16 11:35 Sodium 142 mmol/L (137-145) 08/30/16 07:04 Potassium 3.5 mmol/L (3.5-5.1) 08/30/16 07:04 Chloride 110 mmol/L (98-107) H 08/30/16 07:04 Carbon Dioxide 23 mmol/L (22-30) 08/30/16 07:04 Anion Gap 9 mmol/L 08/30/16 07:04 BUN 8 mg/dL (7-17) 08/30/16 07:04 Creatinine 0.68 mg/dL (0.52-1.04) 08/30/16 07:04 Est GFR (MDRD) Af Amer >60 (>60 ml/min/1.73 sqM) 08/30/16 07:04 Est GFR (MDRD) Non-Af >60 (>60 ml/min/1.73 sqM) 08/30/16 07:04 Glucose 152 mg/dL (74-99) H 08/30/16 07:04 POC Glucose (mg/dL) 258 mg/dL (75-99) H 08/30/16 20:13 POC Glu Recreation Worker Anai Coker 08/30/16 20:13 Plasma Lactic Acid Jimi 1.4 mmol/L (0.7-2.0) 08/28/16 22:58 Calcium 7.4 mg/dL (8.4-10.2) L 08/30/16 07:04 Total Bilirubin 0.4 mg/dL (0.2-1.3) 08/30/16 07:04 AST 43 U/L (14-36) H 08/30/16 07:04 ALT 42 U/L (9-52) 08/30/16 07:04 Alkaline Phosphatase 74 U/L (38-126) 08/30/16 07:04 Total Protein 5.2 g/dL (6.3-8.2) L 08/30/16 07:04 Albumin 2.8 g/dL (3.5-5.0) L 08/30/16 07:04 Urine Color Yellow 08/28/16 22:58 Urine Appearance Clear (Clear) 08/28/16 22:58 Urine pH 5.5 (5.0-8.0) 08/28/16 22:58 Ur Specific [place] 1.019 (1.001-1.035) 08/28/16 22:58 Urine Protein Trace (Negative) H 08/28/16 22:58 Urine Glucose (UA) Negative (Negative) 08/28/16 22:58 Urine Ketones 2+ (Negative) H 08/28/16 22:58 Urine Blood Negative (Negative) 08/28/16 22:58 Urine Nitrate Negative (Negative) 08/28/16 22:58 Urine Bilirubin Negative (Negative) 08/28/16 22:58 Urine Urobilinogen <2.0 mg/dL (<2.0) 08/28/16 22:58 Ur Leukocyte Esterase Negative (Negative) 08/28/16 22:58 Influenza Type A RNA Not Detected (Not Detectd) 08/29/16 07:50 Influenza Type B (PCR) Not Detected (Not Detectd) 08/29/16 07:50 Microbiology 08/28/16 22:58 Blood Blood Culture - Preliminary No Growth after 24 hours Assessment and Plan Plan: 66-year-old woman who has a history of breast carcinoma receiving chemotherapy was now developed the significant febrile illness associated with significant chest congestion and cough without significant sputum production. She is now feeling considerably better today after initiation of current antibiotic therapy as well as cough suppressants which she has tolerated very well. The codeine containing compound is helpful and she is having no adverse reaction. This can continue. As far as antibiotic therapy she is receiving Rocephin and azithromycin with marked improvement. If she continues to improve. She will be a candidate for transition to oral azithromycin and oral cefuroxime to complete her course of therapy over the next week. Hopefully she'll be able to restart her chemotherapy after completion of her antibiotic therapy. We'll ask pulmonary critical care if she is in need of a nebulizer for home treatment.
[2016-08-31] MEDS: HEPARIN SODIUM,PORCINE 5,000 UNIT/ML 1 ML VIAL SQ SCH ×2 (00:05→08:00)
[2016-08-31] MEDS: methylPREDNISolone SOD SUCCI 125 MG/2 ML VIAL IV SCH ×3 (00:05→13:28)
[2016-08-31] MEDS: SODIUM CHLORIDE 0.9% 1,000 ML IV SCH (05:20)
[2016-08-31] MEDS: guaiFENesin-Coden 100-10MG/5ML 10 ML CUP PO PRN ×2 (06:31→15:16)
[2016-08-31 08:00] LABS: Glucose,Whole Blood 147 mg/dL (75-99)
[2016-08-31] MEDS: AZITHROMYCIN 500 MG TAB PO SCH (08:00)
[2016-08-31] MEDS: INSULIN LISPRO (humaLOG) 300 UNIT/3 ML VIAL SQ SCH ×2 (08:00→12:03)
[2016-08-31] MEDS: FAMOTIDINE 20 MG TAB PO SCH (08:01)
[2016-08-31] MEDS: BUDESONIDE 0.5 MG/2 ML NEBU INHALATION SCH (08:01)
[2016-08-31] MEDS: IPRATROPIUM-ALBUTEROL 3 ML NEB INHALATION SCH ×2 (08:01→11:53)
[2016-08-31] MEDS: MULTIVITAMINS, THERA 1 EACH TAB PO SCH (08:01)
[2016-08-31] MEDS: ATENOLOL 25 MG TAB PO SCH (08:01)
[2016-08-31] MEDS: CALCIUM CARB-VIT D 500MG-200UN 1 EACH TAB PO SCH (08:01)
--- NOTE | 2016-08-31 08:24 | P.CONS ---
History of Present Illness - Reason for Consult Consult date: 08/30/16 breast cancer, fever, sepsis Requesting physician: Emilia Ash - Chief Complaint fever - History of Present Illness Mrs. Nash is a pleasant female pt of Dr. Cheema who was diagnosed with right breast invasive ductal carcinoma in Jun 2016 from core biopsy, ER weak +, [place] and Her 2 negative. She was started on neoadjuvant chemotherapy and is s/p 3/4 cycles of adriamycin and cytoxan on 08/08 and neulasta 08/19. Last week pt was prescribed antibiotic for persistent cough but she developed a rash and diarrhea so she stopped. A few days later she was seen in the ER for fever and she was sent home with antibiotic and cough suppressant. Despite several more days of antibiotics she developed fever as high as 102F so she returned to hospital and is admitted for treatment. She states today that her cough is less frequent but still feels congested in the chest, she has had fever since admission. No oral irritation, sore throat, ear pain, appetite is poor, no nausea or vomiting, she can get SOB when active, denies palpitations or dizziness. Her diarrhea has stopped. No dysuria, swelling or rash. Review of Systems All systems: negative Constitutional: Reports as per HPI Past Medical History Past Medical History: Cancer, Hyperlipidemia, Hypertension, Osteoarthritis (OA) Additional Past Medical History / Comment(s): breast cancer, chemo History of Any Multi-Drug Resistant Organisms: None Reported Past Surgical History: Section, Tonsillectomy Additional Past Surgical History / Comment(s): arthroscopy to right knee, Past Anesthesia/Blood Transfusion Reactions: No Reported Reaction Past Psychological History: No Psychological Hx Reported Smoking Status: Never smoker Past Alcohol Use History: None Reported Additional Past Alcohol Use History / Comment(s): She has been a lifelong nonsmoker. She denies any medical marijuana, marijuana, street drug use. She drinks alcohol occasionally but none since she started chemotherapy. 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 She lives at home with her and 2 adult sons. There are no pets in the home. Past Drug Use History: None Reported - Past Family History Mother History Unknown: Yes Family Medical History: Cancer, Hypertension Additional Family Medical History / Comment(s): Breast cancer Medications and Allergies Home Medications Medication Instructions Recorded Confirmed Type Atenolol 25 mg PO DAILY 08/27/16 08/28/16 History Ibuprofen [Advil] 400 mg PO BID 08/27/16 08/28/16 History Lidocaine-Prilocaine Cream [Emla 1 applic TOPICAL DAILY PRN 08/27/16 08/28/16 History Cream 2.5%/2.5%] Lovastatin [Mevacor] 20 mg PO HS 08/27/16 08/28/16 History Multivitamins, Thera [Multivitamin] 1 tab PO DAILY 08/27/16 08/28/16 History Acetaminophen Tab [Tylenol Tab] 500 mg PO Q6H PRN 08/28/16 08/28/16 History Albuterol Inhaler [Ventolin Hfa 2 puff INHALATION RT-Q6H PRN 08/28/16 08/28/16 History Inhaler] Calcium Carbonate/Vitamin D3 2 tab PO DAILY 08/28/16 08/28/16 History [Calcium 600-Vit D3 200 Tablet] Psyllium Husk [Psyllium] 0.4 gm PO HS 08/28/16 08/28/16 History Allergies Allergy/AdvReac Type Severity Reaction Status Date / Time amoxicillin [From Augmentin] Allergy Rash/Hives/ Verified 08/28/16 23:08 Diarrhea chlorpheniramine Allergy Itching Verified 08/28/16 23:08 [From Tussionex] clavulanic acid Allergy Rash/Hives/ Verified 08/28/16 23:08 [From Augmentin] Diarrhea doxycycline Allergy Itching Verified 08/28/16 23:08 hydrocodone [From Tussionex] Allergy Itching Verified 08/28/16 23:08 moxifloxacin [From Avelox] Allergy Itching Verified 08/28/16 23:08 Physical Exam Vitals: Vital Signs Temp Pulse Pulse Resp BP Pulse Ox 08/30/16 15:23 103 H 08/30/16 15:14 103 H 95 08/30/16 14:57 97.4 F L 106 H 16 129/74 95 08/30/16 11:49 100 08/30/16 11:35 96 08/30/16 08:51 104 H 08/30/16 08:31 100 08/30/16 07:00 98.1 F 85 16 105/59 90 L 08/29/16 22:45 98.1 F 114 H 16 128/60 92 L 01/10/17 19:49 96 08/29/16 19:35 92 Intake and Output 08/30/16 08/30/16 08/30/16 06:59 14:59 22:59 Intake Total 1040 Balance 1040 Intake: IV 800 Sodium Chloride 0.9% 1, 800 000 ml @ 100 mls/hr IV . Q10H [facility] Rx#:[id number] Oral 240 Other: Voiding Method Toilet Toilet Toilet Incontinent Incontinent Incontinent # Voids 2 4 Weight 67.132 kg 67.132 kg Patient Weight 08/31/16 06:59 Weight 67.132 kg - Constitutional General appearance: average body habitus, cooperative - EENT Eyes: anicteric sclerae, normal appearance ENT: normal oropharynx - Neck Neck: no lymphadenopathy - Respiratory Respiratory: right: diminished, left: CTA (cough is audible coarse) - Cardiovascular Rhythm: regular Heart sounds: normal: S1, S2 foot Peripheral Edema: bilateral: 2+ - Gastrointestinal General gastrointestinal: normal bowel sounds, soft - Integumentary Integumentary: pale - Neurologic Neurologic: CNII-XII intact - Musculoskeletal Musculoskeletal: generalized weakness, strength equal bilaterally - Psychiatric Psychiatric: A&O x's 3, appropriate affect, intact judgment & insight Results CBC & Chem 7: 08/30/16 07:04 08/30/16 07:04 Labs: Abnormal Lab Results - Last 24 Hours (Table) 08/29/16 08/30/16 08/30/16 Range/Units 20:25 07:01 07:04 WBC 17.1 H (3.8-10.6) k/uL RBC 2.79 L (3.80-5.40) m/uL Hgb 8.8 L (11.4-16.0) gm/dL Hct 26.4 L (34.0-46.0) % RDW 16.5 H (11.5-15.5) % Neutrophils # (Manual) 14.7 H (1.3-7.7) k/uL Lymphocytes # (Manual) 0.1 L (1.0-4.8) k/uL Chloride (98-107) mmol/L Glucose (74-99) mg/dL POC Glucose (mg/dL) 217 H 164 H (75-99) mg/dL Calcium (8.4-10.2) mg/dL AST (14-36) U/L Total Protein (6.3-8.2) g/dL Albumin (3.5-5.0) g/dL 08/30/16 08/30/16 08/30/16 Range/Units 07:04 11:23 16:44 WBC (3.8-10.6) k/uL RBC (3.80-5.40) m/uL Hgb (11.4-16.0) gm/dL Hct (34.0-46.0) % RDW (11.5-15.5) % Neutrophils # (Manual) (1.3-7.7) k/uL Lymphocytes # (Manual) (1.0-4.8) k/uL Chloride 110 H (98-107) mmol/L Glucose 152 H (74-99) mg/dL POC Glucose (mg/dL) 233 H 151 H (75-99) mg/dL Calcium 7.4 L (8.4-10.2) mg/dL AST 43 H (14-36) U/L Total Protein 5.2 L (6.3-8.2) g/dL Albumin 2.8 L (3.5-5.0) g/dL Chest x-ray: report reviewed Assessment and Plan (1) Breast cancer, right breast Narrative/Plan: Pt is s/p 3/4 cycles of AC with neulasta. Her 4th cycle is due this Sunday but it will be postponed until she has complete antibiotic therapy, we will await ID recommendations on duration. Pt is aware of postponing treatment. Status: Acute (2) Fever Narrative/Plan: Pancultures pending, pt is on antibiotics and being followed by ID Status: Acute (3) Antineoplastic chemotherapy induced anemia Narrative/Plan: No acute intervention, will check to see if anemia work has been done previously , if not will order labs to evaluate. Status: Acute (4) Leukocytosis Narrative/Plan: Secondary to GCSF administration. She is also on steroids. No acute intervention, will continue to monitor. Status: Acute
[2016-08-31 11:05] LABS: Glucose,Whole Blood 253 mg/dL (75-99)
--- NOTE | 2016-08-31 14:30 | P.PN ---
Subjective Principal diagnosis: Cough and shortness of breath Patient seen and examined. Patient states her breathing is much better today. Her cough is improving. She states she is having some shakiness from the steroids. She is wondering if she can go home today. Objective - Vital Signs Vital signs: Vital Signs Temp 98.1 F 08/31/16 07:00 Pulse 92 08/31/16 12:03 Resp 16 08/31/16 07:00 BP 134/70 08/31/16 07:00 Pulse Ox 92 L 08/31/16 07:00 Intake & Output 08/30/16 08/31/16 08/31/16 18:59 06:59 18:59 Intake Total 100 Balance 100 Weight 67.132 kg 67.132 kg Intake: Oral 100 Other: Voiding Method Toilet Toilet Toilet Incontinent Incontinent Incontinent # Voids 4 2 - Exam Gen.: Alert and oriented 3, no acute distress Cardiovascular: Regular rate and rhythm, S1/S2 Lungs: Clear to auscultation bilaterally no wheezes rales or rhonchi Abdomen: Soft nontender nondistended positive bowel sounds Extremities: No edema - Labs CBC & Chem 7: 08/30/16 07:04 08/30/16 07:04 Labs: Abnormal Lab Results - Last 24 Hours (Table) 08/30/16 08/30/16 08/31/16 Range/Units 16:44 20:13 07:49 POC Glucose (mg/dL) 151 H 258 H 147 H (75-99) mg/dL 08/31/16 Range/Units 10:57 POC Glucose (mg/dL) 253 H (75-99) mg/dL Assessment and Plan Plan: Acute bronchospasm Tracheobronchitis Right breast cancer Hypertension Sepsis with SIRS Dyspnea Short course of steroid taper Bronchodilators Antibiotics Incentive spirometry and pulmonary hygiene Okay to MD from pulmonary standpoint
--- NOTE | 2016-08-31 14:39 | P.DS ---
Providers Date of admission: 08/29/16 00:16 Expected date of discharge: 08/31/16 Attending physician: Omkar Guerrero Consults: 08/29/16 09:10 Consult Physician Stat Consulting Provider: Ac Saini Consult Reason/Comments: rec abx Do you want consulting provider notified?: Yes 08/29/16 12:29 Consult Physician Stat Consulting Provider: Christina Littlejohn Consult Reason/Comments: shortness of breath Do you want consulting provider notified?: Yes Primary care physician: Omkar Guerrero [facility] Course: Mrs. Nash is a pleasant female pt of Dr. Cheema who was diagnosed with right breast invasive ductal carcinoma in Jun 2016 from core biopsy, ER weak +, [place] and Her 2 negative. She was started on neoadjuvant chemotherapy and is s/p 3/4 cycles of adriamycin and cytoxan on 08/08 and neulasta 08/19. Last week pt was prescribed antibiotic for persistent cough but she developed a rash and diarrhea so she stopped. A few days later she was seen in the ER for fever and she was sent home with antibiotic and cough suppressant. Despite several more days of antibiotics she developed fever as high as 102F so she returned to hospital and is admitted for treatment. She states today that her cough is less frequent but still feels congested in the chest, she has had fever since admission. No oral irritation, sore throat, ear pain, appetite is poor, no nausea or vomiting, she can get SOB when active, denies palpitations or dizziness. Her diarrhea has stopped. No dysuria, swelling or rash. Influenza A and B was negative. Blood culture negative urinalysis was negative. Patient was feeling significantly improved coughing less congestion in the chest improved remained afebrile Patient was seen by hematology oncology as well as infectious disease and pulmonology service. Patient was started on IV antibiotics per recommendations of keara Saini. After initiating therapy patient's symptoms significantly improved and on the day of discharge was felt to be appropriate to proceed with a discharge to home Impression discharge diagnosis Present on admission febrile leukocytosis sepsis suspect due to acute tracheobronchitis in a immune compromised host New diagnosis of right breast cancer June 2016 currently receiving chemotherapy CAT scan of the chest no evidence of a pulmonary emboli History of hypertension Breast cancer, right breast Narrative/Plan: Pt is s/p 3/4 cycles of AC with neulasta. Her 4th cycle is due this Sunday but it will be postponed until she has complete antibiotic therapy, we will await ID recommendations on duration. Pt is aware of postponing treatment. Status: Acute (2) Fever Narrative/Plan: Pancultures pending, pt is on antibiotics and being followed by ID Status: Acute (3) Antineoplastic chemotherapy induced anemia Narrative/Plan: No acute intervention, will check to see if anemia work has been done previously , if not will order labs to evaluate. Status: Acute (4) Leukocytosis Narrative/Plan: Secondary to GCSF administration. She is also on steroids. No acute intervention, will continue to monitor. Status: Acute The above dictated assessment and findings were discussed with dr guerrero . Impression and the plan of care have been dictated as directed. Aliza Rodriguez nurse practitioner acting as a scribe for dr guerrero Patient Condition at Discharge: Good Plan - Discharge Summary New Discharge Prescriptions: Azithromycin [Zithromax] 500 mg PO DAILY #7 tab Benzonatate [Tessalon Perles] 200 mg PO TID PRN #20 cap PRN Reason: Cough Cefuroxime Axetil [Ceftin] 500 mg PO BID #14 tab Montelukast [Singulair] 10 mg PO HS #30 tab predniSONE 10 mg PO DAILY #14 tab Discharge Medication List Atenolol 25 mg PO DAILY 08/27/16 [History] Ibuprofen [Advil] 400 mg PO BID 08/27/16 [History] Lidocaine-Prilocaine Cream [Emla Cream 2.5%/2.5%] 1 applic TOPICAL DAILY PRN 04/05 [History] Lovastatin [Mevacor] 20 mg PO HS 08/27/16 [History] Multivitamins, Thera [Multivitamin] 1 tab PO DAILY 08/27/16 [History] Acetaminophen Tab [Tylenol] 500 mg PO Q6H PRN 08/28/16 [History] Albuterol Inhaler [Ventolin Hfa Inhaler] 2 puff INHALATION RT-Q6H PRN 08/28/16 [ History] Azithromycin [Zithromax Tri-Seng] 500 mg PO DAILY #3 tab 08/28/16 [Rx] Benzonatate [Tessalon Perles] 200 mg PO TID #10 capsule 08/28/16 [Rx] Calcium Carbonate/Vitamin D3 [Calcium 600-Vit D3 200 Tablet] 2 tab PO DAILY 05/06 [History] Psyllium Husk [Psyllium] 0.4 gm PO HS 08/28/16 [History] Azithromycin [Zithromax] 500 mg PO DAILY #7 tab 08/31/16 [Rx] Benzonatate [Tessalon Perles] 200 mg PO TID PRN #20 cap 08/31/16 [Rx] Cefuroxime Axetil [Ceftin] 500 mg PO BID #14 tab 08/31/16 [Rx] Montelukast [Singulair] 10 mg PO HS #30 tab 08/31/16 [Rx] predniSONE 10 mg PO DAILY #14 tab 08/31/16 [Rx] Follow up Appointment(s)/Referral(s): Omkar Guerrero MD [Primary Care Provider] - 1-2 days Discharge Disposition: HOME SELF-CARE
[2016-08-31 15:14] VITALS: BP 140/74; PULSE 96; TEMP 97.6
--- NOTE | 2016-08-31 19:03 | PN ---
DATE OF SERVICE: 08/31/2016 CHIEF COMPLAINT: Pneumonitis and carcinoma of the breast. HISTORY OF PRESENT ILLNESS: This lady is doing a little bit better. Chest is clear. She has some shakiness from the steroids, but other than that she is doing well. PHYSICAL EXAMINATION: Chest is quite clear. Cardiac exam is normal. ABDOMEN: Soft and nontender. Extremities are normal. IMPRESSION: 1. Pneumonitis. 2. Carcinoma of the breast. PLAN: She may go home today, and if she does this will be arranged by the nurse practitioner. We will follow her up in the office.
== END 2016-08-31 15:55 | disposition home or self-care (01) | DRG 872 ==
LOC: EC 20:40 → 5ONC 08-29 00:16
PROVIDERS: ADMIT Family Medicine; ATTEND Family Medicine
DX: A41.9 Sepsis, unspecified organism (principal); C50.911 Malignant neoplasm of unspecified site of right female breast; D64.81 Anemia due to antineoplastic chemotherapy; E78.5 Hyperlipidemia, unspecified; I10 Essential (primary) hypertension; D72.829 Elevated white blood cell count, unspecified; J20.9 Acute bronchitis, unspecified; M19.90 Unspecified osteoarthritis, unspecified site; R19.7 Diarrhea, unspecified; R21 Rash and other nonspecific skin eruption; T45.1X5A Adverse effect of antineoplastic and immunosuppressive drugs, initial encounter; R32 Unspecified urinary incontinence; T50.995A Adverse effect of other drugs, medicaments and biological substances, initial encounter; Z79.899 Other long term (current) drug therapy; Z88.1 Allergy status to other antibiotic agents; Z88.5 Allergy status to narcotic agent; Z88.0 Allergy status to penicillin; Z88.8 Allergy status to other drugs, medicaments and biological substances; Z82.49 Family history of ischemic heart disease and other diseases of the circulatory system; Y92.009 Unspecified place in unspecified non-institutional (private) residence as the place of occurrence of the external cause
CPT/HCPCS: 36415; 71020; 71275; 80053; 81003; 83605; 83735; 85025; 85379; 87040; 87502; 93005; 93306; 94640; 96365; 96367; 96375; 99285

== ENCOUNTER → 2017-04-17 | Outpatient (CLI) | payer MEDICARE ==
--- NOTE | 2017-04-17 13:46 | BD ---
EXAMINATION TYPE: MG DEXA axial skeleton. DATE OF EXAM: 04/17/2017 COMPARISON: Previous study dated 08/31/2014. CLINICAL HISTORY: Postmenopausal female. Height: 5 FT 1/2 IN Weight: 135 FRAX RISK QUESTIONS: Alcohol (3 or more units per day): NO Family History (Parent hip fracture): NO Glucocorticoids (More than 3mos): NO (Ex: prednisone, prednisolone, methylprednisolone, dexamethasone, and hydrocortisone). History of Fracture in Adulthood: NO Secondary Osteoporosis: 1. Type 1 Diabetes: NO 2. Hyperthyroidism: NO 3. Menopause before 45: NO 4. Malnutrition: NO 5. Chronic liver disease: NO Rheumatoid Arthritis: NO Current Tobacco Use: NO RISK FACTORS HISTORY OF: Active: NO Postmenopausal woman: BETWEEN 45- 48 MEDICATIONS: Additional Medications: ATTENOLOL, IBUPROFEN, B-COMPLEX, CALCIUM, MULTI Additional History: BREAST CA 2016 CHEMO AND RADIATION EXAM MEASUREMENTS: Bone mineral densitometry was performed using the [employer] System. Bone mineral density as measured about the Lumbar spine is: ----- L1-L4(G/cm2): 1.256 T Score Values are as follows: ----- L2: -0.4 ----- L3: 1.4 ----- L4: 1.1 ----- L1-L4: 0.6 Bone mineral density has: Increased 3.9% since study of: 2014 Bone mineral density about the R hip (g/cm2): 0.829 Bone mineral density about the L hip (g/cm2): 0.805 T Score values are as follows: -----R Neck: -1.5 -----L Neck: -1.7 -----R Total: -0.3 -----L Total: -0.9 Bone mineral density has: Decreased -1.5% since study of: 2014 IMPRESSION: OSTEOPENIA. NOTE: T-SCORE=SD OF THE YOUNG ADULT MEAN.
== END | disposition home or self-care (01) ==
LOC: RADBDWWP 09:05
PROVIDERS: ATTEND Internal Medicine Hematology & Oncology
DX: C50.211 Malignant neoplasm of upper-inner quadrant of right female breast (principal); N95.1 Menopausal and female climacteric states; M85.88 Other specified disorders of bone density and structure, other site; Z79.890 Hormone replacement therapy
CPT/HCPCS: 77080

== ENCOUNTER → 2018-01-31 | Outpatient (CLI) | payer MEDICARE ==
--- NOTE | 2018-01-31 17:16 | US ---
EXAMINATION TYPE: US transvaginal DATE OF EXAM: 01/31/2018 COMPARISON: NONE CLINICAL HISTORY: Pelvic Pain R10.2. Hx of breast cancer. Hx of tamoxifen- stopped May 2016. No surgeries. No spotting. TECHNIQUE: Transvaginal (TV Date of LMP: SOFTWARE SUPPORT TECHNICIAN, EXAM MEASUREMENTS: Uterus: 5.2 x 4.8 x 3.1 cm Endometrial Stripe: 0.7 cm Right Ovary: 1.3 x 1.0 x 0.8 cm 1. Uterus: Anteverted Appears heterogenous. Hypoechoic left lesion in fundal region - 1.6 x 1.2 x 1.0, difficult to optimally visualize. 2. Endometrium: appears slightly heterogenous. 3. Right Ovary: wnl 4. Left Ovary: Obscured by overlying bowel gas 5. Bilateral Adnexa: wnl 6. Posterior cul-de-sac: no free fluid Cervix- cystic appearing lesion with internal debris = 1.1 x 0.7 cm IMPRESSION: 1. Hypoechoic uterine fundal lesion likely represents an intramural leiomyoma measures up to 1.6 cm. 2. Prominence of the endometrial thickness is within normal limits for a patient tamoxifen but enlarg ed for postmenopausal female. If there is a postmenopausal bleeding direct visualization is recommend ed, if no postmenopausal bleeding short-term follow-up is recommended. 3. Complex cervical avascular lesion likely represents a complex nabothian cyst. If there is further concern enhanced pelvic MRI could be performed.
== END | disposition home or self-care (01) ==
LOC: RADUSWWP 15:30
PROVIDERS: ATTEND Obstetrics & Gynecology
DX: N85.9 Noninflammatory disorder of uterus, unspecified (principal); N95.1 Menopausal and female climacteric states; R10.2 Pelvic and perineal pain; Z85.3 Personal history of malignant neoplasm of breast
CPT/HCPCS: 76830

== ENCOUNTER → 2018-04-05 | Outpatient (CLI) | payer MEDICARE ==
[2018-04-05 09:22] LABS: HCT 38.7 % (34.0-46.0); HGB 13.3 gm/dL (11.4-16.0); MCH 32.5 pg (25.0-35.0); MCHC 34.3 g/dL (31.0-37.0); MCV 94.9 fL (80.0-100.0); Mean Platelet Volume 7.3; Platelet Count 184 k/uL (150-450); RBC 4.08 m/uL (3.80-5.40); RDW 13.1 % (11.5-15.5); WBC 6.1 k/uL (3.8-10.6)
[2018-04-05 09:38] LABS: ALT 44 U/L (9-52); AST 41 U/L (14-36); Albumin 3.6 g/dL (3.5-5.0); Alkaline Phosphatase 85 U/L (38-126); Anion Gap 7 mmol/L; Blood Urea Nitrogen 20 mg/dL (7-17); Calcium 8.9 mg/dL (8.4-10.2); Carbon Dioxide 27 mmol/L (22-30); Chloride 103 mmol/L (98-107); Glucose 90 mg/dL (74-99); Potassium 4.1 mmol/L (3.5-5.1); Sodium 137 mmol/L (137-145); Total Protein 6.1 g/dL (6.3-8.2)
[2018-04-05 09:41] LABS: Prothrombin Time 9.5 sec (9.0-12.0)
[2018-04-05 10:37] LABS: Appearance,Urine Clear (Clear); Bilirubin,Urine Negative (Negative); Blood,Urine Negative (Negative); Color,Urine Light Yellow; Glucose,Urine (UA) Negative (Negative); Ketones,Urine Negative (Negative); Leukocyte Esterase,Urine Small (Negative); Nitrite,Urine Negative (Negative); PH, Urine 6.5 (5.0-8.0); Protein,Urine Negative (Negative); Specific Gravity,Urine 1.004 (1.001-1.035); Squamous Epithelial Cell,Urine <1 /hpf (0-4); Urobilinogen,Urine <2.0 mg/dL (<2.0); WBC,Urine 2 /hpf (0-5)
== END | disposition home or self-care (01) ==
LOC: LABPAT 08:45
PROVIDERS: ATTEND Orthopaedic Surgery
DX: Z01.812 Encounter for preprocedural laboratory examination (principal); Z79.01 Long term (current) use of anticoagulants
CPT/HCPCS: 36415; 80053; 81001; 85027; 85610; 85730; 87070

== ENCOUNTER → 2018-04-05 | Outpatient (CLI) | payer MEDICARE ==
--- NOTE | 2018-04-05 10:59 | US ---
EXAMINATION TYPE: US pelvis complete transvag DATE OF EXAM: 04/05/2018 COMPARISON: 01/31/2018 CLINICAL HISTORY: R93.8 ENDOMETRIAL THICKENING. Hx of cancer. Not on tamoxifen any more. No pain. Check ovaries. TECHNIQUE: Transvaginal (TV) and Transabdominal (TA) . Transabdominal sonographic images of the pel vis were acquired. Transvaginal sonographic images were medically necessary to better assess the fol lowing anatomy: Ovaries and Endometrium Date of LMP: PM, EXAM MEASUREMENTS: Uterus: 6.3 x 4.0 x 3.1 cm Endometrial Stripe: 0.4 cm Right Ovary: 1.4 x 0.8 x 1.0 cm Left Ovary: 1.6 x 0.8 x 0.9 cm 1. Uterus: Anteverted Unable to see fundal lesion with today's ultrasound. Uterus appears small a nd heterogenous. 2. Endometrium: appears wnl 3. Right Ovary: wnl 4. Left Ovary: wnl 5. Bilateral Adnexa: wnl 6. Posterior cul-de-sac: no free fluid Cervix- Nabothian cyst appearing lesion with internal echoes= 1.0 x 0.9 x 0.8 cm IMPRESSION: 1. Endometrial thickness is now within normal limits and has decreased in the interim measuring 4 mm. 2. Redemonstration of a complex avascular cervical lesion favored to represent a complex nabothian cy st. This has unchanged in size from the prior of 01/31/2018. 3. The known probable fundal leiomyoma is not clearly measured on today's examination although there is continued myometrial heterogeneity. 4. Ovaries are visualized and unremarkable.
== END | disposition home or self-care (01) ==
LOC: RADUSWWP 08:10
PROVIDERS: ATTEND Obstetrics & Gynecology
DX: N88.8 Other specified noninflammatory disorders of cervix uteri (principal); R93.8 Abnormal findings on diagnostic imaging of other specified body structures
CPT/HCPCS: 76830; 76856

== ENCOUNTER 2018-04-16 06:11 | Inpatient (IN) | payer MEDICARE ==
[2018-04-09 12:23] VITALS: BMI 27.3
[~2018-04-16 06:11] MED LIST: DEXAMETHASONE SOD PHOSPHATE 10 MG/ML 1 ML VIAL IV ONE; LIDOCAINE 1% 20 ML VIAL (10MG/ML) FOR IV START INTRADERMA PRN; MIDAZOLAM 2 MG/2 ML VIAL IV PRN; ONDANSETRON 4 MG/2 ML VIAL IVP ONE; ceFAZolin IN SWFI 2 GM/20 ML SYRINGE IVP ONE; fentaNYL (PF) 50 MCG/ML 2 ML AMP IV PRN
[2018-04-16] MEDS ORDERED: ONDANSETRON 4 MG/2 ML VIAL ONE (06:17)
[2018-04-16] MEDS: LACTATED RINGERS 1,000 ML IV SCH ×4 (06:46→20:27)
[2018-04-16] MEDS ORDERED: MIDAZOLAM 2 MG/2 ML VIAL ONE (07:48)
[2018-04-16] MEDS ORDERED: PROPOFOL 10 MG/ML 20 ML VIAL IV ONE (07:48)
[2018-04-16] MEDS ORDERED: ceFAZolin 3,000 MG in SODIUM CHLORIDE 0.9% IRRIGATIO 3,000 ML IRRIGATION ONE (07:48)
[2018-04-16] MEDS ORDERED: TEMAZEPAM 15 MG CAP PO PRN (10:03)
[2018-04-16] MEDS ORDERED: HYDROmorphone 1 MG/ML 1 ML SYRINGE IVP PRN ×2 (10:03)
[2018-04-16] MEDS ORDERED: MAGNESIUM HYDROXIDE 2,400 MG/10 ML CUP PO PRN (10:03)
[2018-04-16] MEDS ORDERED: HYDROcodone/APAP 5-325MG 1 EACH TAB PO PRN (10:03)
[2018-04-16] MEDS ORDERED: BISACODYL 10 MG SUPP RECTAL PRN (10:03)
[2018-04-16] MEDS ORDERED: NALOXONE 0.4 MG/ML 1 ML VIAL IV PRN (10:03)
[2018-04-16] MEDS ORDERED: ONDANSETRON 4 MG/2 ML VIAL IVP PRN (10:03)
[2018-04-16] MEDS ORDERED: NA PHOS,M-B/NA PHOS,DI-BA 133 ML ENEMA RECTAL PRN (10:03)
[2018-04-16] MEDS ORDERED: hydrOXYzine PAMOATE 25 MG CAP PO PRN (10:03)
[2018-04-16] MEDS: HYDROmorphone 1 MG/ML 1 ML SYRINGE IVP PRN ×3 (11:11→18:12)
--- NOTE | 2018-04-16 11:32 | XR ---
EXAMINATION TYPE: XR knee limited RT DATE OF EXAM: 04/16/2018 COMPARISON: None HISTORY: Postop alignment, pain TECHNIQUE: 2 view right knee FINDINGS: Tibial and femoral components of in place. No acute fractures are evident. Postsurgical susana nges are evident. IMPRESSION: 1. No fractures post right knee replacement
[2018-04-16] MEDS ORDERED: HYDROmorphone 1 MG/ML 1 ML SYRINGE IVP ONE (12:02)
[2018-04-16] MEDS ORDERED: LACTATED RINGERS 1,000 ML IV ONE (12:30)
[2018-04-16] MEDS: HYDROcodone/APAP 5-325MG 1 EACH TAB PO PRN ×2 (16:43→22:40)
[2018-04-16] MEDS: ceFAZolin IN SWFI 2 GM/20 ML SYRINGE IVP SCH (16:51)
[2018-04-16] MEDS ORDERED: WARFARIN 5 MG TAB PO ONE (18:00)
[2018-04-16] MEDS ORDERED: NON-FORMULARY DRUG (Psyllium Husk [Metamucil] 0.4 GM) PO SCH (20:45)
[2018-04-16] MEDS: CALCIUM CARB-VIT D 500MG-200UN 1 EACH TAB PO SCH (20:52)
[2018-04-17] MEDS: ceFAZolin IN SWFI 2 GM/20 ML SYRINGE IVP SCH (00:02)
[2018-04-17] MEDS: HYDROmorphone 1 MG/ML 1 ML SYRINGE IVP PRN (00:17)
[2018-04-17] MEDS ORDERED: HYDROmorphone 2 MG TAB PO PRN ×3 (05:05→05:06)
[2018-04-17] MEDS: HYDROcodone/APAP 5-325MG 1 EACH TAB PO PRN (05:51)
[2018-04-17] MEDS: LACTATED RINGERS 1,000 ML IV SCH ×2 (06:11→14:51)
[2018-04-17 07:55] LABS: Basophils % (A) 0 %; Eosinophils % (A) 0 %; HCT 32.6 % (34.0-46.0); HGB 10.6 gm/dL (11.4-16.0); Lymphocytes # (A) 1.1 k/uL (1.0-4.8); Lymphocytes % (A) 12 %; MCH 32.6 pg (25.0-35.0); MCHC 32.7 g/dL (31.0-37.0); MCV 99.8 fL (80.0-100.0); Mean Platelet Volume 7.1; Monocytes # (A) 0.7 k/uL (0-1.0); Monocytes % (A) 8 %; Neutrophils # (A) 6.8 k/uL (1.3-7.7); Neutrophils % (A) 78 %; Platelet Count 171 k/uL (150-450); RBC 3.27 m/uL (3.80-5.40); RDW 13.5 % (11.5-15.5); WBC 8.8 k/uL (3.8-10.6)
[2018-04-17 07:57] LABS: INR 1.6 (<1.2); Prothrombin Time 14.9 sec (9.0-12.0)
--- NOTE | 2018-04-17 08:45 | P.PN ---
Subjective Progress Note Date: 04/17/18 Principal diagnosis: Status post right total knee arthroplasty This is a 68 year-old female post right total knee arthroplasty. This is post- op day 1. The patient was evaluated at the bedside today. The patient denies nausea, vomiting, abdominal pain, shortness of breath, and chest pain this morning. She states her pain is controlled at this time. The patient has not been up with physical therapy. Objective - Vital Signs Vital signs: Vital Signs Temp 98.6 F 04/17/18 07:55 Pulse 70 04/17/18 07:55 Resp 16 04/17/18 07:55 BP 101/60 04/17/18 07:55 Pulse Ox 97 04/17/18 07:55 Intake & Output 04/16/18 04/17/18 04/17/18 18:59 06:59 18:59 Intake Total 1901 1000 Output Total 125 Balance 1776 1000 Weight 65.771 kg Intake: IV 1901 Intake, IV Titration 1000 Amount Lactated Ringers 1,000 ml 1000 @ 100 mls/hr IV .Q10H YESENIA Rx#:[id number] Output: Urine 75 Estimated Blood Loss 50 Other: Voiding Method Bedpan Toilet # Voids 1 3 - Exam The patient does not appear in acute distress. Alert and orientated x3. Dressing is clean dry and intact. Incision appears fine with no erythema or active drainage. Calf is soft and nontender. Good foot and ankle motion without difficulty. Sensation and circulatory status is intact. - Labs CBC & Chem 7: 04/17/18 06:52 Labs: Abnormal Lab Results - Last 24 Hours (Table) 04/17/18 04/17/18 Range/Units 06:52 06:52 RBC 3.27 L (3.80-5.40) m/uL Hgb 10.6 L (11.4-16.0) gm/dL Hct 32.6 L (34.0-46.0) % PT 14.9 H (9.0-12.0) sec INR 1.6 H (<1.2) Assessment and Plan (1) Osteoarthritis of right knee Current Visit: Yes Status: Acute Code(s): M17.11 - UNILATERAL PRIMARY OSTEOARTHRITIS, RIGHT KNEE SNOMED Code(s): 472551596498922 (2) Status post total right knee replacement Current Visit: Yes Status: Acute Code(s): Z96.651 - PRESENCE OF RIGHT ARTIFICIAL KNEE JOINT SNOMED Code(s): 8479220069581 Plan: 1. Continue pain control, may increase to Marlin 7.5 if needed. 2. Anticoagulation with Coumadin per protocol 3. Start CPM, physical therapy and ambulation 4. Anticipate discharge to skilled rehab likely on Sunday.
[2018-04-17] MEDS: LETROZOLE 2.5 MG TAB PO SCH (09:16)
[2018-04-17] MEDS: ATENOLOL 25 MG TAB PO SCH (09:16)
[2018-04-17] MEDS: CALCIUM CARB-VIT D 500MG-200UN 1 EACH TAB PO SCH (09:16)
[2018-04-17] MEDS: PSYLLIUM HUSK 100% 6 GM PACKET PO SCH (09:16)
[2018-04-17] MEDS: HYDROcodone/APAP 7.5-325MG 1 EACH TAB PO PRN ×2 (11:36→17:56)
--- NOTE | 2018-04-17 16:09 | PN ---
PROGRESS NOTE DATE OF SERVICE: 04/17/2018 CHIEF COMPLAINT: Status post right TKA. HISTORY OF PRESENT ILLNESS: This lady is doing well. She is not having a great deal of pain. PHYSICAL EXAMINATION: Chest is clear. Cardiac exam is normal. Abdomen is soft, nontender. IMPRESSION: Status post right total knee arthroplasty. PLAN: No recommended changes of time at this time. She is doing well. MMODL / IJN: [id number] /
--- NOTE | 2018-04-17 16:15 | CONS ---
CONSULTATION CHIEF COMPLAINT: Arthritis of the right knee. HISTORY OF PRESENT ILLNESS: This lady is in for an elective TKA. She has been in fairly good health. She was treated several years ago for carcinoma of the breast without sequelae or metastases. She does have mild essential hypertension which has been brought under good control. REVIEW OF SYSTEMS: She has had no headaches, neurologic problems, TIAs, syncope, problems with the vision or the hearing, chest pain, cough, hemoptysis, shortness of breath, palpitations, infarctions, orthopnea, PND, murmurs, rheumatic fever, etc. She has had no abdominal pain, nausea, vomiting, hematemesis, melena, hematochezia, colitis, diverticulosis, diverticulitis, hemorrhoids, jaundice, hepatitis, cirrhosis, hematuria, frequency, urgency, renal failure, arthralgias other than the knee, diabetes, etc. Past medical history, family history, and personal and social histories reveal that she is ALLERGIC to: 1. PENICILLIN. 2. TETRACYCLINE. 3. QUINOLONES. 4. TUSSIONEX. She takes ibuprofen 800 mg q.i.d. p.r.n., atenolol 25 once a day. Past medical history, family history otherwise unremarkable or noncontributory. Surgically she has had T &A and a . She has never smoked. She does not drink. PHYSICAL EXAMINATION: Blood pressure is 130/85 with a pulse 76, respirations of 19. She is afebrile. In general she appeared to be well developed, well nourished, in no acute distress. Skin color is normal. Skin is warm, dry. Lymph nodes are not enlarged. Head, ears, eyes, nose, mouth and throat are normal. Neck veins are not distended. Thyroid is not enlarged. Chest is clear. Cardiac exam is normal. The abdomen is soft, nontender. Extremities are normal other than the knee. Neurologically she is intact. IMPRESSION: 1. Osteoarthritis of the right knee. 2. Mild hypertension. 3. History of carcinoma of the breast. RECOMMENDATIONS: None. She is a good candidate for surgery and is cleared. MMODL / IJN: [id number] /
[2018-04-17] MEDS ORDERED: WARFARIN 5 MG TAB PO ONE (18:00)
[2018-04-18] MEDS: HYDROcodone/APAP 7.5-325MG 1 EACH TAB PO PRN ×5 (00:29→23:50)
[2018-04-18] MEDS: LACTATED RINGERS 1,000 ML IV SCH ×2 (04:07→13:36)
[2018-04-18 07:22] LABS: INR 1.7 (<1.2); Prothrombin Time 15.4 sec (9.0-12.0)
[2018-04-18] MEDS ORDERED: HYDROcodone/APAP 7.5-325MG 1 EACH TAB PO PRN (08:31)
--- NOTE | 2018-04-18 08:36 | P.PN ---
Subjective Progress Note Date: 04/18/18 Principal diagnosis: Status post right total knee arthroplasty This is a 68 year-old female post right total knee arthroplasty. This is post- op day 2. The patient was evaluated at the bedside today. She complaints of dizziness this morning. She states the dizziness starts after she takes the pain medication. The patient denies nausea, vomiting, abdominal pain, shortness of breath, and chest pain this morning. She states her pain is controlled at this time. The patient has been up with physical therapy and is doing well. Objective - Vital Signs Vital signs: Vital Signs Temp 98.8 F 04/18/18 06:59 Pulse 84 04/18/18 06:59 Resp 14 04/18/18 06:59 BP 113/70 04/18/18 06:59 Pulse Ox 97 04/18/18 06:59 Intake & Output 04/17/18 04/18/18 04/18/18 18:59 06:59 18:59 Weight 65.771 kg Other: Voiding Method Toilet # Voids 2 1 - Exam The patient does not appear in acute distress. Alert and orientated x3. Dressing is clean dry and intact. Incision appears fine with no erythema or active drainage. Calf is soft and nontender. Good foot and ankle motion without difficulty. Sensation and circulatory status is intact. - Labs CBC & Chem 7: 04/17/18 06:52 Labs: Abnormal Lab Results - Last 24 Hours (Table) 04/18/18 Range/Units 06:45 PT 15.4 H (9.0-12.0) sec INR 1.7 H (<1.2) Assessment and Plan (1) Osteoarthritis of right knee Current Visit: Yes Status: Acute Code(s): M17.11 - UNILATERAL PRIMARY OSTEOARTHRITIS, RIGHT KNEE SNOMED Code(s): 831877895852059 (2) Status post total right knee replacement Current Visit: Yes Status: Acute Code(s): Z96.651 - PRESENCE OF RIGHT ARTIFICIAL KNEE JOINT SNOMED Code(s): 4716511448499 Plan: 1. Continue pain control, may need to decrease pain medications due to dizziness 2. Anticoagulation with Coumadin per protocol 3. Continue CPM, physical therapy and ambulation 4. Anticipate discharge to skilled rehab likely on Sunday.
[2018-04-18] MEDS: ATENOLOL 25 MG TAB PO SCH (09:14)
[2018-04-18] MEDS: LETROZOLE 2.5 MG TAB PO SCH (09:14)
[2018-04-18] MEDS: PSYLLIUM HUSK 100% 6 GM PACKET PO SCH (09:15)
[2018-04-18] MEDS: CALCIUM CARB-VIT D 500MG-200UN 1 EACH TAB PO SCH (09:15)
--- NOTE | 2018-04-18 17:46 | PN ---
PROGRESS NOTE CHIEF COMPLAINT: Status post right knee replacement. HISTORY OF PRESENT ILLNESS: This lady is doing well and has no issues. She will be going to the longterm in a few days. PHYSICAL EXAM: Chest is clear. Cardiac exam is normal. Abdomen is soft, nontender. IMPRESSION: Status post right knee replacement. PLAN: No change in program. MMODL / IJN: [id number] /
[2018-04-18] MEDS ORDERED: WARFARIN 5 MG TAB PO ONE (18:00)
[2018-04-18 23:39] VITALS: TEMP 98.8
[2018-04-19] MEDS: HYDROcodone/APAP 7.5-325MG 1 EACH TAB PO PRN ×2 (07:26→14:41)
[2018-04-19] MEDS: PSYLLIUM HUSK 100% 6 GM PACKET PO SCH (07:26)
[2018-04-19] MEDS: CALCIUM CARB-VIT D 500MG-200UN 1 EACH TAB PO SCH (07:26)
[2018-04-19] MEDS: ATENOLOL 25 MG TAB PO SCH (07:26)
[2018-04-19 07:39] VITALS: BP 120/74; PULSE 78; RESP 16
[2018-04-19 07:42] LABS: Basophils % (A) 1 %; Eosinophils # (A) 0.2 k/uL (0-0.7); Eosinophils % (A) 3 %; HCT 34.4 % (34.0-46.0); HGB 11.2 gm/dL (11.4-16.0); Lymphocytes # (A) 1.2 k/uL (1.0-4.8); Lymphocytes % (A) 17 %; MCH 32.1 pg (25.0-35.0); MCHC 32.7 g/dL (31.0-37.0); MCV 98.2 fL (80.0-100.0); Mean Platelet Volume 7.5; Monocytes # (A) 0.4 k/uL (0-1.0); Monocytes % (A) 6 %; Neutrophils # (A) 4.8 k/uL (1.3-7.7); Neutrophils % (A) 71 %; Platelet Count 186 k/uL (150-450); RDW 13.5 % (11.5-15.5); WBC 6.9 k/uL (3.8-10.6)
[2018-04-19 07:44] LABS: INR 1.6 (<1.2); Prothrombin Time 14.7 sec (9.0-12.0)
--- NOTE | 2018-04-19 08:11 | P.DS ---
Providers Date of admission: 04/16/18 06:11 Expected date of discharge: 04/19/18 Attending physician: Cheo Mendoza Consults: 04/16/18 10:03 Consult Physician Routine Consulting Provider: Omkar Guerrero Consult Reason/Comments: medical management Do you want consulting provider notified?: Yes Primary care physician: Omkar Guerrero - Discharge Diagnosis(es) (1) Osteoarthritis of right knee Current Visit: Yes Status: Acute (2) Status post total right knee replacement Current Visit: Yes Status: Acute Hospital Course: This is a pleasant 68-year-old female last seen in our office with complaints of right knee pain. Patient has known history of degenerative arthritis of the right knee and presented to discuss options. After discussion and consideration , patient elected to proceed with a total knee arthroplasty of the right knee. The patient was seen preoperatively and medically cleared for surgery by Dr. Guerrero. The patient was admitted to [facility] and underwent right total knee arthroplasty on 04/16/[address] Mendoza. The procedure was performed without complications or sequelae. The patient has done well postoperatively. The patient was seen and evaluated at bedside today and denies any new complaints. Pain is reasonably controlled. Dressing is clean dry and intact. Incision looks fine with no erythema or active drainage. Calf is soft and nontender. The patient has full foot and ankle motion without difficulty. Patient's right lower extremity is neurovascular intact. Patient is orthopedically stable for discharge to skilled rehab today. See medication reconciliation for accurate list of discharge medications. Pertinent Studies: Laboratory Tests 04/19/18 04/19/18 07:06 07:06 WBC 6.9 RBC 3.50 L Hgb 11.2 L PT 14.7 H INR 1.6 H Patient Condition at Discharge: Stable Plan - Discharge Summary Discharge Rx Participant: Yes New Discharge Prescriptions: New Aspirin 325 mg PO DAILY #30 tab Hydrocodone/Acetaminophen [Rock 7.5-325] 1 - 2 tab PO Q4-6H PRN 7 Days #84 tab PRN Reason: Pain Sennosides-Docusate Sodium [Senokot-S] 2 tab PO DAILY #30 tablet Warfarin [Coumadin] 2.5 mg PO DIRECTED #30 tab No Action Multivitamins, Thera [Multivitamin (formulary)] 1 tab PO DAILY Ibuprofen [Advil] 400 mg PO BID Atenolol 25 mg PO DAILY Calcium Carbonate/Vitamin D3 [Calcium 600-Vit D3 200 Tablet] 2 tab PO DAILY Letrozole [Femara] 2.5 mg PO DAILY Vitamin B Complex 1 cap PO DAILY Psyllium Husk [Metamucil] 0.4 gm PO DAILY Discharge Medication List Atenolol 25 mg PO DAILY 08/27/16 [History] Ibuprofen [Advil] 400 mg PO BID 08/27/16 [History] Multivitamins, Thera [Multivitamin (formulary)] 1 tab PO DAILY 08/27/16 [History ] Calcium Carbonate/Vitamin D3 [Calcium 600-Vit D3 200 Tablet] 2 tab PO DAILY 05/06 [History] Letrozole [Femara] 2.5 mg PO DAILY 04/09/18 [History] Psyllium Husk [Metamucil] 0.4 gm PO DAILY 04/09/18 [History] Vitamin B Complex 1 cap PO DAILY 04/09/18 [History] Aspirin 325 mg PO DAILY #30 tab 04/19/18 [Rx] Hydrocodone/Acetaminophen [Rock 7.5-325] 1 - 2 tab PO Q4-6H PRN 7 Days #84 tab 04/19/18 [Rx] Sennosides-Docusate Sodium [Senokot-S] 2 tab PO DAILY #30 tablet 04/19/18 [Rx] Warfarin [Coumadin] 2.5 mg PO DIRECTED #30 tab 04/19/18 [Rx] Follow up Appointment(s)/Referral(s): Cheo Mendoza DO [Doctor of Osteopathic Medicine] - 2 Weeks Ambulatory/Diagnostic Orders: Continuous Passive Motion (CPM) Machine [DME.AMB1] Time Frame: 3 Weeks, Location : None Selected Activity/Diet/Wound Care/Special Instructions: Weightbearing as tolerated with a walker Coumadin 2.5 mg 1 by mouth every other day for 7 days then take Aspirin 325mg daily for 1 month CPM 5-6 hours daily-Start CPM at 45 degrees then increase by 5 degrees every time on CPM as patient tolerates. Maximum total of 15 degrees every 24 hours. May shower in 3 days if no drainage from incision Keep incision clean and dry Call [facility] at with questions or concerns Discharge Disposition: TRANSFER TO SNF/ECF
[2018-04-19] MEDS: LETROZOLE 2.5 MG TAB PO SCH (11:04)
--- NOTE | 2018-04-19 17:02 | OP ---
OPERATIVE REPORT DATE OF SERVICE: 04/16/2018 SURGEON: Cheo Mendoza DO POACHER WRINGER OPERATOR: IMELDA Gaytan PREOPERATIVE DIAGNOSIS: Degenerative joint disease of the right knee with varus deformity. FINAL DIAGNOSIS: Degenerative joint disease of the right knee with varus deformity. PROCEDURE PERFORMED: Right total knee replacement arthroplasty utilizing Victoriano Persona press-fit components. PROCEDURE: The patient was taken to the operating suite and placed in supine position. Spinal anesthesia was performed by the department of anesthesiology. A Betadine prep was carried out over the right leg, mid thigh to mid calf. Sterile drapes were applied in the usual manner. Pneumatic tourniquet was inflated to 350 mmHg. A medial parapatellar incision was developed. Medial retinaculum was incised as well as the synovium. The patella was everted, dislocated laterally, and the knee was brought into flexion and held in a leg rocha. Intramedullary cutting guide was used for the right femur. The size 7 press-fit Persona was selected. The appropriate cut was developed utilizing the appropriate jig, and the provisional component was impacted in position. Alignment of bone component interface noted. The tibial cutting guide was aligned and the appropriate wafter cut was developed over the tibia. The medial and lateral meniscus were excised. A size 4 metal- backed tray was selected for size and a 10 mm provisional spacer was utilized. The tibial component was marked for position and the appropriate peg holes were drilled in preparation for the final component. The patella was shaped with a shelving planer. A size 29 component was selected and an appropriate stabilizing peg hole was marked and drilled. All the trial components were examined and selected as the final components. The Pulsavac antibiotic solution was initiated for preparation for the final components. A trial size 4 trabecular metal 3-hole tibial plate was placed in the pre- drilled holes and impacted. The final size 7 femoral component was placed in the pre-drilled holes and impacted into position. Final patellar component of 29 mm was placed into the pre- drilled peg holes and impacted. The final size 12 mm polyethylene component was inserted into the tray and locked into position. The area was then brought into flexion and pneumatic tourniquet was deflated. Knee was irrigated with Pulsavac antibiotic solution. Superficial bleeding was controlled with electrocautery. The retinaculum was then approximated with #3 Vicryl suture in horizontal mattress fashion. A #2 Quill was used to reinforce the retinaculum in running fashion. Vicryl 3- 0 was utilized for closure of the subcutaneous tissue. Quill 3-0 was utilized for subcuticular closure. Dermabond was utilized to the knee. Betadine and sterile pressure dressing was applied. The tourniquet was deflated. The patient was transferred to the recovery room in satisfactory postoperative condition. GROSS PATHOLOGY: There was degenerative joint disease of the right knee with acute varus deformity of 10 degrees. MMODL / IJN: [id number] / [email or web address]
--- NOTE | 2018-04-19 17:38 | PN ---
PROGRESS NOTE CHIEF COMPLAINT: Status post right knee replacement. HISTORY OF PRESENT ILLNESS: This lady is doing well. She is comfortable. She thinks she is moving to rehab today. PHYSICAL EXAMINATION: Vital signs are normal. Her chest is clear. Cardiac exam is normal. The abdomen is soft, nontender. IMPRESSION: 1. Status post right total knee arthroplasty. 2. Hypertension. 3. History of carcinoma of the breast. PLAN: Move to a custodial today. MMODL / IJN: [id number] /
[2018-04-19] MEDS ORDERED: WARFARIN 7.5 MG TAB PO ONE (18:00)
== END 2018-04-19 16:45 | DRG 470 ==
LOC: 2ORMAIN 06:11 → 3SUR 12:38
PROVIDERS: ADMIT Orthopaedic Surgery; ATTEND Orthopaedic Surgery
PROC: 0SRC0JA Replacement of Right Knee Joint with Synthetic Substitute, Uncemented, Open Approach (ICD-10-PCS; principal; 2018-04-16 08:00)
DX: M17.11 Unilateral primary osteoarthritis, right knee (principal); I10 Essential (primary) hypertension; M21.161 Varus deformity, not elsewhere classified, right knee; H91.90 Unspecified hearing loss, unspecified ear; Z79.1 Long term (current) use of non-steroidal anti-inflammatories (NSAID); Z79.811 Long term (current) use of aromatase inhibitors; Z79.899 Other long term (current) drug therapy; Z85.3 Personal history of malignant neoplasm of breast; Z92.21 Personal history of antineoplastic chemotherapy; Z88.1 Allergy status to other antibiotic agents; Z88.0 Allergy status to penicillin; Z88.8 Allergy status to other drugs, medicaments and biological substances; Z82.49 Family history of ischemic heart disease and other diseases of the circulatory system; Z83.3 Family history of diabetes mellitus
CPT/HCPCS: 85025; 85610; 88300

== ENCOUNTER 2018-10-21 10:35 | Day surgery (SDC) | payer MEDICARE ==
[~2018-10-21 10:35] MED LIST changes: -DEXAMETHASONE SOD PHOSPHATE 10 MG/ML 1 ML VIAL IV ONE; +LACTATED RINGERS 1,000 ML IV SCH; -MIDAZOLAM 2 MG/2 ML VIAL IV PRN; -ONDANSETRON 4 MG/2 ML VIAL IVP ONE; -ceFAZolin IN SWFI 2 GM/20 ML SYRINGE IVP ONE; -fentaNYL (PF) 50 MCG/ML 2 ML AMP IV PRN
[2018-10-21 11:04] VITALS: TEMP 98.1
[2018-10-21] MEDS ORDERED: NA PHOS,M-B/NA PHOS,DI-BA 133 ML ENEMA RECTAL ONE ×2 (11:04→11:07)
[2018-10-21] MEDS ORDERED: LACTATED RINGERS 1,000 ML IV ONE (11:27)
[2018-10-21] MEDS ORDERED: PROPOFOL 10 MG/ML 20 ML VIAL IV ONE (12:21)
--- NOTE | 2018-10-21 12:58 | P.PCN ---
Date of Procedure: 10/21/18 Procedure(s) Performed: Procedure: Total colonoscopy. Preoperative diagnosis: Screening for neoplasia. Postoperative diagnosis: Diverticulosis with no evidence of acute diverticulitis , strictures, polyps or cancer. Preparation: HalfLytely prep. Sedation: Was provided by anesthesia. Brief clinical history: The patient is a 68-year-old female who is scheduled for this evaluation for screening for neoplasia age being her risk factor. She had two prior exams the last was around 10 years ago and she does not believe she had polyps in the past. The patient has no specific abdominal complaints, bleeding or anemia. Procedure: With the patient on her left lateral decubitus position and after informed consent and adequate sedation, the perianal area was inspected and it did not show any fissures or fistulas. There were no masses felt on digital rectal examination. The Olympus CFH 190L video colonoscope was then inserted in the rectum in the usual fashion and advanced to the cecum. There were multiple diverticular orifices seen scattered along the length of the bowel, more on the left side when compared to the right side, with no evidence of acute diverticulitis or strictures. The mucosa appeared healthy. No polyps or tumors were seen. I retroflexed the endoscope in the rectum before the endoscope was withdrawn. The patient tolerated the procedure well. Plan: The patient was reassured. Discussed dietary measures. She will follow- up with you as planned and I recommended repeat exam in 10 years.
[2018-10-21 13:27] VITALS: BP 129/75; PULSE 62; RESP 16
== END 2018-10-21 13:38 | disposition home or self-care (01) ==
LOC: ORWHC2ENDO 10:35
DX: Z12.11 Encounter for screening for malignant neoplasm of colon (principal); K57.30 Diverticulosis of large intestine without perforation or abscess without bleeding; Z88.1 Allergy status to other antibiotic agents; Z88.8 Allergy status to other drugs, medicaments and biological substances; M19.90 Unspecified osteoarthritis, unspecified site; I10 Essential (primary) hypertension; E78.5 Hyperlipidemia, unspecified; Z79.82 Long term (current) use of aspirin; Z79.891 Long term (current) use of opiate analgesic
CPT/HCPCS: 45378

== ENCOUNTER 2019-02-05 08:46 | Day surgery (SDC) | payer MEDICARE ==
[~2019-02-05 08:46] MED LIST changes: +DEXAMETHASONE SOD PHOSPHATE 10 MG/ML 1 ML VIAL IV ONE; +HYDROmorphone 0.5 MG/0.5 ML SYRINGE IVP PRN; -LACTATED RINGERS 1,000 ML IV SCH; +ONDANSETRON 4 MG/2 ML VIAL IVP ONE; +ceFAZolin IN SWFI 2 GM/20 ML SYRINGE IVP ONE
[2019-02-05] MEDS ORDERED: MIDAZOLAM (PF) 2 MG/2 ML VIAL IVP ONE (09:58)
[2019-02-05] MEDS ORDERED: fentaNYL (PF) 50 MCG/ML 2 ML AMP IVP ONE ×2 (09:58)
--- NOTE | 2019-02-05 10:23 | P.ANPRN ---
Procedure Note - Anesthesia - Nerve Block Performed Left Popliteal Single Time Out Performed: Yes Date of Procedure: 02/05/19 Procedure Start Time: 09:57 Location of Patient Procedure: PreOp Indication: Acute Post-Operative Pain Specifically requested for management of pain by DrYonas: Yousif Holliday Sedation Type: Sedate with meaningful contact maintained Preparation: Sterile Prep Position: Right Lateral Catheter: None Needle Types: Pajunk Needle Gauge: 20 Technique: Ultrasound Injectate: 0.5% Ropivacaine (see comment for volume) (20) Blood Aspirated: No Pain Paresthesia on Injection Noted: No Resistance on Injection: Normal Events: Uneventful and Well Tolerated
[2019-02-05] MEDS ORDERED: ESMOLOL 100 MG/10 ML VIAL ONE (10:44)
[2019-02-05] MEDS ORDERED: NEOSTIGMINE 1 MG/ML 10 ML VIAL ONE (10:44)
[2019-02-05] MEDS ORDERED: ROCURONIUM BROMIDE 10 MG/ML 10 ML VIAL IV ONE (10:44)
[2019-02-05] MEDS ORDERED: LIDOCAINE 1% INJ 10MG/ML (20 ML MDV) ONE (10:44)
[2019-02-05] MEDS ORDERED: ePHEDrine SULFATE/0.9% NACL/PF 50 MG/5 ML SYRINGE IV ONE (10:44)
[2019-02-05] MEDS ORDERED: GLYCOPYRROLATE 0.2 MG/ML 2 ML VIAL ONE (10:44)
[2019-02-05] MEDS ORDERED: MIDAZOLAM 2 MG/2 ML VIAL ONE (10:44)
[2019-02-05] MEDS ORDERED: fentaNYL (PF) 50 MCG/ML 2 ML AMP ONE (10:44)
[2019-02-05] MEDS ORDERED: PHENYLEPHRINE-0.9% NACL SYG 1 MG/10 ML SYRINGE ONE (10:44)
[2019-02-05] MEDS ORDERED: SUCCINYLCHOLINE CHLORIDE 100 MG/5 ML SYR IV ONE (10:44)
[2019-02-05] MEDS ORDERED: PROPOFOL 10 MG/ML 20 ML VIAL IV ONE (10:44)
[2019-02-05] MEDS ORDERED: ROPIVACAINE 5 MG/ML 30 ML VIAL ONE (10:44)
[2019-02-05] MEDS ORDERED: LACTATED RINGERS 1,000 ML IV ONE ×2 (10:46→12:49)
[2019-02-05] MEDS ORDERED: HYDROmorphone 0.5 MG/0.5 ML SYRINGE IVP PRN ×3 (13:58)
[2019-02-05] MEDS ORDERED: SENNOSIDES-DOCUSATE SODIUM 1 EACH TAB PO PRN (13:58)
[2019-02-05] MEDS ORDERED: HYDROcodone/APAP 5-325MG 1 EACH TAB PO PRN (13:58)
[2019-02-05] MEDS ORDERED: hydrOXYzine PAMOATE 25 MG CAP PO PRN (13:58)
[2019-02-05] MEDS ORDERED: ONDANSETRON 4 MG/2 ML VIAL IVP PRN (13:58)
--- NOTE | 2019-02-05 14:16 | P.OP ---
Date of Procedure: 02/05/19 Preoperative Diagnosis: 1. Left midfoot arthritis 2. Left severe first MTP arthritis 3. Left gastrocnemius equinus contracture Postoperative Diagnosis: Same Procedure(s) Performed: 1. Arthrodesis operable midtarsal joints, left foot (second and third t arsometatarsal joints) 2. Left first MTP fusion 3. Left gastrocnemius recession 4. Application of short leg splint by physician, left leg Anesthesia: JERRY, regional Surgeon: Yousif Holliday Fish Peddler #1: Lisa Portillo Estimated Blood Loss (ml): 10 IV fluids (ml): 1,200 Pathology: none sent Condition: stable Indications for Procedure: The patient is a very pleasant 68-year-old female with long-standing history of problems with her left foot. She has failed a long course of nonsurgical treatment including activity modification, orthotics, shoe modification, anti- inflammatory medications, and corticosteroid injections. She came to me to discuss surgery. Clinically she had tenderness over the dorsal midfoot in the region of the second and third tarsometatarsal joints and over the first MTP joint. Her x-rays showed moderate to severe arthritis of the first MTP joint and the second and third tarsometatarsal joints. We discussed continued nonsurgical treatment versus surgery. The patient requested going forward with surgical treatment. My recommendation was to fuse the most affected midfoot joints, fuse the first MTP joint, and perform a gastrocnemius recession to offload the midfoot. We discussed potential complications of surgery including but not limited to risk of anesthesia, superficial infection, deep infection, delayed wound healing, superficial wound necrosis, nonunion of the fusion site, malunion to the fusion site, systematic hardware, damage to local blood vessels or nerves, DVT, PE, other medical complications, generalized to satisfaction with surgery, and possibly loss of life or limb. 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 She provided her verbal and written consent to go forward with surgery. Description of Procedure: The patient was identified in preoperative holding and the correct left foot was marked with my initials. I reviewed the consent form with the patient and her family. All their questions were answered. The patient was given a popliteal and saphenous nerve block by anesthesia. The patient was then brought back to the operating room. She was positioned on the or table where general anesthetic and preoperative antibiotics were given. A tourniquet was applied the proximal aspect of the left leg. All bony prominences were well-padded. A bump was placed on the left buttock internally rotating the leg to neutral. The left leg was then prepped and draped in the standard sterile fashion. Prior to starting surgery timeout was performed identifying the correct patient, operative extremity, and procedure. The patient's leg was then elevated, exsanguinated with an Esmarch bandage, and the tourniquet was inflated to 250 mm I began by performing a gastrocnemius recession. A 3 cm incision was made 1 thumb breadth posterior to the tibia at the distal medial muscle belly of the gastrocnemius. Skin incision with a scalpel and dissection was carried down carefully to the subcutaneous tissue with tenotomy scissors. The superficial fascia was identified and incised. I bluntly developed the interval between the gastrocnemius and soleus muscle. The fascia on the undersurface of the gastrocnemius were sharply released from lateral to medial. A 1 center intersection of the plantaris tendon was sharply excised. After releasing the gastrocnemius aponeurosis there is a significant increase in dorsiflexion with the knee extended. The wound was thoroughly irrigated and closed in layers. I then turned attention to the midfoot. A longitudinal incision was marked out over the dorsal midfoot between the second and third tarsometatarsal joints. Skin incision was made with a scalpel. Dissection was carried down carefully to the subcu tissues tissue with tenotomy scissors. The intrinsic muscles in the dorsum of the foot were sharply incised and the tendons were retracted. The second and third tarsometatarsal joints were identified and the joint capsule were sharply elevated. On inspection both joints appeared to be severely arthritic with large dorsal osteophytes and complete loss of articular cartilage. The dorsal bone spurs were contoured with a rongeur. An distractors were used to distract and fully visualize the second and third tarsometatarsal joints. Using a combination of osteotomes and curettes remaining articular cartilage removed down to bleeding subchondral bone. Both joints were thoroughly irrigated to remove debris. A 2.0 mm drill bit was used to fenestrate the prepared joint surfaces of the second and third tarsometatarsal joints to facilitate fusion. The pins from the distractor removed. Dorsal midfoot plate were then utilized. A 4 hole plate was placed over the dorsal aspect of the second tarsometatarsal joint. An olive tipped K wire was placed through one of the proximal holes holding the position of the plate. A nonlocking 2.7 mm screw was placed proximally into the middle cuneiform. The [place] device was then utilized to generate compression across the second tarsometatarsal joint. A nonlocking 2.7 mm screw was placed through the most distal portion of the oblong hole to generate additional compression. On clinical inspection of the joint it was nicely compressed and I was unable to pass a [place] elevator between the prepared bony surfaces. Bone harvested during preparation the joint was packed around the fusion site. Locking 2.7 mm screws were placed proximal and distal. Attention was then turned to the third tarsometatarsal joint. The same 4 hole plate and procedure was utilized generating excellent compression across the joint surface. The wound was thoroughly irrigated. Intrinsic muscles and fascia were closed with interrupted 2-0 Vicryl. The deep subcu was reapproximated using 3-0 Monocryl. The skin was closed with 3-0 nylon horizontal mattress stitches. Attention was then turned to the first MTP joint. A longitudinal incision was made over the first MTP joint. Sharp dissection was carried down to the skin and subcutaneous tissue to the EHL tendon sheath. The EHL tendon sheath was sharply incised and the tendon retracted laterally. The MTP capsule was sharply incised exposing the joint. On inspection of his large dorsal osteophyte off the distal first metatarsal which was contoured. There is complete loss of articular cartilage of the metatarsal head and partial loss on the proximal phalanx base. The K wires placed in the central access of the first metatarsal. A 19 mm concave reamer was used to remove the remaining articular cartilage down to bleeding subchondral bone. The K wire was removed and used to perforate the subchondral bone. The K wire was then placed on the central aspect of the proximal phalanx. A 19 mm convex reamer was used to remove the remaining articular cartilage down to healthy bleeding subchondral bone. The wound was then thoroughly irrigated. An centrically placed 0.0625 K wire was placed from the medial aspect of the distal first metatarsal into the proximal phalanx. The joint was positioned for fusion and slight valgus and dorsiflexion. I verified positioning of the fusion with a flat plate and fluoroscopy. A precontoured MTP fusion plate with 0 bend was placed over the dorsal aspect of the MTP joint. It was pinned in placed with all of tipped K wires. The outrigger device for a 2.7 mm partially threaded cannulated lag screw was attached the plate and a 22 mm lag screw was placed generating excellent compression across the joint. I then placed a nonlocking 2.7 mm screw distally into the proximal phalanx and a nonlocking 3.5 mm screw proximally into the metatarsal nicely contouring the plate down to bone. Locking 2.7 mm screws were then placed distally and locking 3.5 mm screws were placed proximally. Final fluoroscopic images were taken verifying position of fusion and hardware. The wound was thoroughly irrigated. The capsule over the first MTP joint was closed with a running 2-0 Vicryl. The deep subcutaneous tissues closed with interrupted 3-0 Monocryl. The skin was closed using 3-0 nylon horizontal mattress stitches. I verified that all instrument, sponge, and sharp counts were correct. A sterile dressing consisting of brown quarter-inch stretchy Steri-Strips him of Betadine soaked Adaptic, and 4 x 4's were applied. A well-padded bulky Kelly splint was placed with the ankle at neutral. The patient was then awoken from her anesthetic, transferred to a gurney, and brought to the recovery room having tolerated procedure well. Lisa Portillo PA-C was required as a skilled assistant technician for patient positioning surgical exposure, retraction, placement of hardware, closure of wounds, and application of dressing. Plan: The patient is going to be admitted overnight for pain control and physical therapy evaluation due to difficulty ambulating. She received 2 doses of postoperative antibiotics. She will receive Lovenox for DVT prophylaxis will inpatient and will discharge home on aspirin 325 mg twice daily. Anticipate 6-8 weeks nonweightbearing. Follow-up in the office in 2 weeks for splint removal, wound check, and nonweightbearing x-rays the left foot.
--- NOTE | 2019-02-05 16:12 | FL ---
Fluoroscopy HISTORY: Arthrodesis 87 seconds fluoroscopy time supplied to the referring clinician. 5 intraoperative C-arm images docum ent the procedure. See dictated report from orthopedic surgery.
--- NOTE | 2019-02-05 16:13 | XR ---
Left foot HISTORY: Arthrodesis 5 intraoperative C-arm images document the procedure
[2019-02-05] MEDS: LACTATED RINGERS 1,000 ML IV SCH ×2 (16:59→17:26)
[2019-02-05 17:13] VITALS: BMI 24.6
--- NOTE | 2019-02-05 20:07 | CONS ---
CONSULTATION DATE OF SERVICE: 02/05/2009 I am covering for Dr. Guerrero. REASON FOR CONSULTATION: Advice regarding hypertension, hyperlipidemia, requested by Dr. Holliday. HISTORY OF PRESENT ILLNESS: This 68-year-old woman with a past medical history of hypertension, hyperlipidemia, history of DJD, history of Caesarean section being followed by Dr. Guerrero in the outpatient setting underwent arthrodesis and in the midtarsal joint on the left foot for left midfoot arthritis and left gastrocnemius contracture. There is no history of fever, rigors or chills. No history of headache, loss of consciousness or seizures. The patient has some occasional cough. There is no history of fever, rigors or chills. PAST MEDICAL HISTORY: Hypertension, hyperlipidemia, history of DJD, history of section. MEDICATIONS ARE: 1. Klor-Con 20 mEq p.o. b.i.d. 2. Atenolol 25 mg daily. 3. Vitamin B complex. 4. Metamucil 0.4 daily. 5. Multivitamin 1 daily. 6. Femara 12.5 mg. 7. Chlorthalidone. 8. Aspirin 81. 9. [place]. 10.Colace. ALLERGIES: AMOXICILLIN, CLAVULANIC ACID, DOXYCYCLINE, HYDROCODONE, MOXIFLOXACIN. FAMILY HISTORY: History of cancer, hypertension, breast cancer. SOCIAL HISTORY: No history of smoking. Occasional alcohol intake. REVIEW OF SYSTEMS: ENT: No diminished vision. No diminished hearing. Cardiovascular: No angina or palpitations. Respiration: No cough. No hemoptysis. GI no nausea or vomiting. : No dysuria. NERVOUS SYSTEM: No numbness or weakness. ALLERGY/IMMUNOLOGY: No asthma or hayfever. MUSCULOSKELETAL as mentioned earlier. HEMATOLOGY/ONCOLOGY: Negative. ENDOCRINE negative. CONSTITUTIONAL: As mentioned earlier. DERMATOLOGY negative. RHEUMATOLOGY: Negative. PSYCH is negative. PHYSICAL EXAMINATION: Alert and oriented x3, pulse is 94, blood pressure 111/74, respiration 17, temperature 97.7, pulse ox 94% on room air. HEENT: Conjunctivae normal. NECK: No jugular venous distention. CARDIOVASCULAR: S1, S2 muffled. RESPIRATORY: Breath sounds diminished in the bases. No rhonchi. No crackles. ABDOMEN: Soft, nontender. LEGS are status post surgery on the left. NERVOUS SYSTEM: No focal deficits. LABS: Recently done coags are within normal limits. Otherwise, INR is 1.6. Chemistry, BUN and creatinine ratio was noted. ASSESSMENT: 1. Status post arthrodesis of the midtarsal joint of the left foot and left gastrocnemius resection for midfoot arthritis and gastrocnemius contracture. 2. Hypertension. 3. Hyperlipidemia. 4. History of degenerative joint disease. 5. History of breast cancer. RECOMMENDATIONS AND DISCUSSION: In this 68-year-old woman who presented with multiple medical issues, at this time, I recommend to continue current management and symptomatic treatment. Otherwise resume the home medications. I would also recommend DVT prophylaxis. Incentive spirometry. Follow the patient closely. The patient may be asked to follow with Dr. Guerrero after discharge. Thank you Dr. Holliday for letting us participate in the care of this patient. ANDERSL / DONYAN: [id number] / MTDD
[2019-02-05] MEDS: POTASSIUM CHLORIDE ER 20 MEQ TAB.ER PO SCH (20:30)
[2019-02-05] MEDS: ceFAZolin IN SWFI 2 GM/20 ML SYRINGE IVP SCH (20:30)
[2019-02-06] MEDS: LACTATED RINGERS 1,000 ML IV SCH ×3 (01:03→13:24)
[2019-02-06] MEDS: ceFAZolin IN SWFI 2 GM/20 ML SYRINGE IVP SCH (02:20)
[2019-02-06] MEDS: HYDROcodone/APAP 5-325MG 1 EACH TAB PO PRN ×2 (06:37→12:55)
[2019-02-06 07:54] VITALS: BP 97/61; PULSE 90; RESP 16; TEMP 98.4
[2019-02-06] MEDS: POTASSIUM CHLORIDE ER 20 MEQ TAB.ER PO SCH (07:57)
[2019-02-06 08:11] LABS: Basophils % (A) 0 %; Eosinophils % (A) 0 %; HCT 35.4 % (34.0-46.0); HGB 11.7 gm/dL (11.4-16.0); Lymphocytes # (A) 1.4 k/uL (1.0-4.8); Lymphocytes % (A) 11 %; MCH 31.4 pg (25.0-35.0); MCHC 33.2 g/dL (31.0-37.0); MCV 94.4 fL (80.0-100.0); Mean Platelet Volume 7.3; Monocytes # (A) 0.8 k/uL (0-1.0); Monocytes % (A) 6 %; Neutrophils % (A) 80 %; Platelet Count 237 k/uL (150-450); RBC 3.75 m/uL (3.80-5.40); WBC 12.4 k/uL (3.8-10.6)
[2019-02-06] MEDS ORDERED: CHLORTHALIDONE 25 MG TAB PO SCH (09:00)
[2019-02-06] MEDS ORDERED: MULTIVITAMINS, THERA 1 EACH TAB PO SCH (09:00)
[2019-02-06] MEDS ORDERED: ENOXAPARIN 40 MG/0.4 ML SYRINGE SQ SCH (09:00)
[2019-02-06] MEDS ORDERED: ATENOLOL 25 MG TAB PO SCH (09:00)
[2019-02-06] MEDS ORDERED: ASPIRIN 81 MG PO SCH (09:00)
--- NOTE | 2019-02-06 12:54 | P.DS ---
Providers Expected date of discharge: 02/06/19 Attending physician: Yousif Holliday Consults: 02/05/19 14:01 Consult Physician Routine Consulting Provider: Omkar Guerrero Consult Reason/Comments: Medical management Do you want consulting provider notified?: Yes Primary care physician: Omkar Guerrero [place] [facility] Course: This is an 68-year-old female who is admitted to [facility] on 02/05/19 for elective surgery of her left foot. Patient has been followed as an outpatient in the office by Dr. Holliday for her severe midfoot arthritis. She decided to have surgery after failing nonsurgical treatment, which included orthotics, anti-inflammatory medications, shoe modifications, activity modifications. Patient underwent a left second and third tarsometatarsal joint arthrodesis, first MTP joint arthrodesis, and a gastrocnemius recession on 02/05/[address] Holliday. The procedure was performed without complication or sequelae. The patient is doing fairly well postoperatively. Vital signs and labs are stable on postoperative day #1. Patient was examined bedside today, is bedside. Patient states she feels very well this morning, she states her pain is currently very well-controlled. She has been tolerating her diet without issue. She has not worked with physical therapy yet today. She denies numbness, tingling of the left lower extremity. She denies chest pain, shortness of breath, nausea, or vomiting. On inspection of the left lower extremity, there is a bulky Kelly splint in place. The splint is clean, dry, intact. Left toes are warm and well perfused with brisk capillary refill. Sensation is intact to light touch at the toes. Patient is able to wiggle her toes without issue or pain. Right calf is soft and nontender to palpation. Patient is discharged home in good condition. Patient will follow-up with Dr. Holliday in the office in 2 weeks. Please see med rec for accurate list of discharge medication. Plan - Discharge Summary Discharge Rx Participant: Yes New Discharge Prescriptions: New Aspirin 325 mg PO DAILY #14 tab Docusate [Colace] 100 mg PO BID #60 capsule Hydrocodone/Acetaminophen [Howard 5-325] 1 tab PO Q6HR PRN #30 tab PRN Reason: Pain No Action Multivitamins, Thera [Multivitamin (formulary)] 1 tab PO DAILY Atenolol 25 mg PO DAILY Calcium Carbonate/Vitamin D3 [Calcium 600-Vit D3 200 Tablet] 2 tab PO DAILY Letrozole [Femara] 2.5 mg PO DAILY Vitamin B Complex 1 cap PO DAILY Psyllium Husk [Metamucil] 0.4 gm PO DAILY Aspirin 81 mg PO DAILY Potassium Chloride [Klor-Con 20 Packets] 20 meq PO BID Chlorthalidone 12.5 mg PO DAILY Discharge Medication List Atenolol 25 mg PO DAILY 08/27/16 [History] Multivitamins, Thera [Multivitamin (formulary)] 1 tab PO DAILY 08/27/16 [History] Calcium Carbonate/Vitamin D3 [Calcium 600-Vit D3 200 Tablet] 2 tab PO DAILY 08/28/16 [History] Letrozole [Femara] 2.5 mg PO DAILY 04/09/18 [History] Psyllium Husk [Metamucil] 0.4 gm PO DAILY 04/09/18 [History] Vitamin B Complex 1 cap PO DAILY 04/09/18 [History] Aspirin 81 mg PO DAILY 10/21/18 [History] Chlorthalidone 12.5 mg PO DAILY 12/27/18 [History] Potassium Chloride [Klor-Con 20 Packets] 20 meq PO BID 12/27/18 [History] Aspirin 325 mg PO DAILY #14 tab 02/05/19 [Rx] Docusate [Colace] 100 mg PO BID #60 capsule 02/05/19 [Rx] Hydrocodone/Acetaminophen [[place]ard 5-325] 1 tab PO Q6HR PRN #30 tab 02/05/19 [Rx] Follow up Appointment(s)/Referral(s): Omkar Guerrero MD [Primary Care Provider] - 02/11/19 1:10 pm [facility],Equipment [NON-STAFF] - As Needed (Crutches and knee scooter ) Yousif Holliday MD [Medical Doctor] - 02/18/19 9:30 am Patient Instructions/Handouts: Non Weight Bearing Activity (DC), Arthrodesis (DC) Activity/Diet/Wound Care/Special Instructions: -Strict non-weight bearing on your operative leg. Do not remove your splint; Keep splint clean, dry, and intact -Use crutches, knee scooter, or a walker to ambulate after surgery. -Elevate and ice operative leg to help reduce swelling and control pain. -Take pain medications as prescribed. Take Colace as a stool softener. Take aspirin as prescribed for blood clot prevention. -Follow-up appointment with Dr. Holliday in the office in 2 weeks. -Call the office with any questions or concerns, Discharge Disposition: HOME SELF-CARE
--- NOTE | 2019-02-06 15:56 | PN ---
PROGRESS NOTE I am covering for Dr. Guerrero. DATE OF SERVICE: 02/06/2019 This 68-year-old woman who was admitted after left foot surgery is improving significantly. No chest pain. No palpitations. No fever. On exam, alert and oriented x3. The pulse is 101, blood pressure 90/56, respiration 17, temperature 99 degrees, pulse ox 93% on room air. HEENT: Conjunctivae normal. NECK: No jugular venous distention. CARDIOVASCULAR SYSTEM: S1, S2 muffled. RESPIRATORY SYSTEM: Breath sounds diminished at the bases. No rhonchi. No crackles. ABDOMEN: Soft, non-tender. LEGS: Status post left foot surgery. NERVOUS SYSTEM: No focal deficit. LABS: WBC 12.4, hemoglobin 11.7. ASSESSMENT: 1. Status post arthrodesis of the midtarsal joint of the left foot and left gastrocnemius resection for midfoot arthritis and gastrocnemius contractures. 2. Hypertension. 3. Hyperlipidemia. 4. History of degenerative joint disease. 5. History of breast cancer. RECOMMENDATIONS AND DISCUSSION: I recommend to continue current medications, continue with the monitoring, symptomatic treatment. I would recommend resuming the home medications and closely follow with Orthopedic Surgery. Recommend close followup with Dr. Guerrero in the outpatient setting. MMODL / IJN: [id number] /
== END 2019-02-06 13:23 | disposition home or self-care (01) ==
LOC: OR 08:46 → 4SSUR 16:33 → OR 02-06 13:23
PROVIDERS: ATTEND Orthopaedic Surgery
DX: M19.072 Primary osteoarthritis, left ankle and foot (principal); M62.462 Contracture of muscle, left lower leg; M20.22 Hallux rigidus, left foot; I10 Essential (primary) hypertension; E78.5 Hyperlipidemia, unspecified; H91.90 Unspecified hearing loss, unspecified ear; R42 Dizziness and giddiness; Z85.3 Personal history of malignant neoplasm of breast; Z97.3 Presence of spectacles and contact lenses; Z79.2 Long term (current) use of antibiotics; Z79.82 Long term (current) use of aspirin; Z79.891 Long term (current) use of opiate analgesic; Z79.899 Other long term (current) drug therapy; Z88.1 Allergy status to other antibiotic agents; Z88.5 Allergy status to narcotic agent; Z88.0 Allergy status to penicillin
CPT/HCPCS: 28730; 28750; 27687; 64445; 97161; 85025; 82306; 73630; C1713; J2250 ×2; J1100; J2710; J2405; J2001; J1650; J3010; J2795; J2370; J0330; J2704; J0690 ×2

== ENCOUNTER → 2019-04-24 | Outpatient (CLI) | payer MEDICARE ==
--- NOTE | 2019-04-24 12:15 | BD ---
EXAMINATION TYPE: Axial Bone Density DATE OF EXAM: 04/24/2019 COMPARISON: 04.17.2017 CLINICAL HISTORY: 69YR OLD FEMALE....ICD-10 CODE: M85.9 OSTEOPENIA, Z79.890 POST MENOPAUSAL Height: 59.2 Weight: 124 FRAX RISK QUESTIONS: Glucocorticoids (More than 3mos): YES (Ex: prednisone, prednisolone, methylprednisolone, dexamethasone, and hydrocortisone). RISK FACTORS HISTORY OF: Active: NOT AT THIS TIME, RECENT SURG ON FOOT, USING A CANE Postmenopausal woman: YES AT AROUND AGE 48 Lost more than 2 inches in height since high school: YES Frequent falls: USING CANE MEDICATIONS: Osteoporosis Medications: YES, IN PAST, FOR 7 YRS ...STOPPED 5 YRS AGO Additional Medications: BP MEDS, HX OF CHEMO AND RADIATION, CALCIUM, Additional History: RT BREAST CANCER, PARTIAL MASTECTOMY, HYPERTENSION, EXAM MEASUREMENTS: Bone mineral densitometry was performed using the [employer] System. Bone mineral density as measured about the Lumbar spine is: ----- L1-L4(G/cm2): 1.311 T Score Values are as follows: ----- L1: 0.4 ----- L2: 0.5 ----- L3: 1.1 ----- L4: 1.9 ----- L1-L4: 1.1 Bone mineral density has: Increased 4.2% since study of: 04.17.2017 Bone mineral density about the R hip (g/cm2): 0.913 Bone mineral density about the L hip (g/cm2): 0.874 T Score values are as follows: -----R Neck: -1.2 -----L Neck: -1.4 -----R Total: -0.8 -----L Total: -0.8 Bone mineral density has: Decreased -3.8% since study of: 04.17.2017 FRAX%s: THERE IS A 16.0% CHANCE FOR A MAJOR OSTEOPOROTIC FX AND A 2.8% FOR HIP....PROBABILITY FOR F X IN 10 YRS TIME IMPRESSION: Osteopenia (T Score between -2.5 and -1). There is slightly increased risk of fracture and the patient may be considered for treatment. Re-Screen 2-5 years. NOTE: T-SCORE=SD OF THE YOUNG ADULT MEAN.
== END | disposition home or self-care (01) ==
LOC: RADBDWWP 09:35
PROVIDERS: ATTEND Internal Medicine Hematology & Oncology
DX: M85.9 Disorder of bone density and structure, unspecified (principal); M85.80 Other specified disorders of bone density and structure, unspecified site; N95.1 Menopausal and female climacteric states; C50.211 Malignant neoplasm of upper-inner quadrant of right female breast; Z79.890 Hormone replacement therapy
CPT/HCPCS: 77080

== ENCOUNTER → 2020-03-29 | Outpatient (CLI) | payer MEDICARE ==
--- NOTE | 2020-03-29 20:26 | MR ---
EXAMINATION TYPE: MR iac wo/w con DATE OF EXAM: 03/29/2020 COMPARISON: CT brain December 27, 2012. HISTORY: Lt acoustic nerve disorder per order. Bilateral hearing loss per patient. History of breast cancer 2016. TECHNIQUE: Multiplanar, multisequence images of the brain and brainstem is performed without and with IV contras t, utilizing 6.5 mL intravenous Gadavist . Acoustic nerve disorder protocol. FINDINGS: Diffusion weighted images demonstrate no evidence of a recent infarct or other diffusion ab normality. There is no worrisome extra-axial fluid collection mild diffuse ventricular and sulcal pr ominence. Some scattered foci of T2 hyperintensity are seen throughout the white matter bilaterally. Approximately 20-25 small scattered lesions are seen. The lesions are nonspecific in appearance and d istribution. Midline structures demonstrate normal morphology. The craniocervical junction appears within normal limits. The visualized sinuses are clear and the globes are intact. Normal vascular flow voids are p resent. Slight prominence or aneurysmal change at the basilar artery origin. No suspicious fluid signal in the mastoid air cells bilaterally. Vestibulocochlear complexes are symm etric and felt within normal limits. No abnormal enhancing cerebellopontine angle mass is identified bilaterally. IMPRESSION: 1. Source of bilateral hearing loss and left acoustic nerve disorder not clearly identified. Prominen ce or mild aneurysmal change of basilar artery origin, advise MRA [place] follow-up to [facility] evaluate. 2. Background mild diffuse age-related cerebral atrophy and mild to moderate chronic small vessel isc hemic change.
== END | disposition home or self-care (01) ==
LOC: MERGE 18:39 → RADMRIMAIN 18:39
PROVIDERS: ATTEND Otolaryngology
DX: G31.1 Senile degeneration of brain, not elsewhere classified (principal); I67.82 Cerebral ischemia; Z88.0 Allergy status to penicillin; Z88.1 Allergy status to other antibiotic agents; Z88.5 Allergy status to narcotic agent
CPT/HCPCS: 70553; A9585

== ENCOUNTER → 2020-04-28 | Outpatient (CLI) | payer MEDICARE ==
--- NOTE | 2020-04-28 21:11 | MR ---
EXAMINATION TYPE: MR angio head wo con DATE OF EXAM: 04/28/2020 COMPARISON: MRI IAC March 29, 2020. HISTORY: Abnormal MRI, possible aneurysm. TECHNIQUE: Time of flight images focusing on the [place] were performed without contrast.. 2-D and 3-D postprocessing imaging is performed an independent workstation and reviewed. FINDINGS: There is some tortuosity to the distal vertebral arteries bilaterally with prominent right branching vessel suspected posterior inferior cerebellar artery also seen at the vertebral artery con fluence causing the prominence of the origin of basilar artery. No distinct aneurysm. Patent bilatera l posterior communicating arteries noted. No significant focal stenosis or aneurysmal change is prese nt. Images of the anterior circulation show close proximity to the anterior cerebral arteries near origin of A2 arteries with poor visualization of anterior communicating artery. No significant focal stenos is or aneurysmal changes clearly seen. IMPRESSION: No aneurysmal change at the level of the [place]. Tortuous distal vertebral maria eugenia dimas along with originating prominent right PICA accounts for the basilar artery origin prominence on recent MRI.
== END | disposition home or self-care (01) ==
LOC: RADMRIMAIN 19:57
PROVIDERS: ATTEND Otolaryngology
DX: I77.1 Stricture of artery (principal)
CPT/HCPCS: 70544

== ENCOUNTER → 2021-06-17 | Outpatient (CLI) | payer MEDICARE ==
--- NOTE | 2021-06-17 14:39 | BD ---
EXAMINATION TYPE: Axial Bone Density DATE OF EXAM: 06/17/2021 COMPARISON: 04/24/2019 CLINICAL HISTORY: Height: 59.2 IN Weight: 144 LBS FRAX RISK QUESTIONS: Secondary Osteoporosis: 2. Hyperthyroidism: YES RISK FACTORS HISTORY OF: Active: YES Diet low in dairy products/other sources of calcium: YES Postmenopausal woman: AGE 43 MEDICATIONS: Thyroid Medications: YES Which medication: METHIMAZIDE How Lon YEARS Osteoporosis Medications: NOT NOW Which medication: PT DOESNT REMEMBER How Lon YEARS Additional Medications: CALCIUM, VIT D, ASPIRIN, ATENOLOL, B COMPLEX, CHLORTHALIDONE, LETROZOLE,METAM UCIL, METHIMAZOLE, POTASSIUM, Additional History: BREAST CANCER WITH CHEMO AND RADIATION EXAM MEASUREMENTS: Bone mineral densitometry was performed using the [email or web address] System. Bone mineral density as measured about the Lumbar spine is: ----- L1-L4(G/cm2): 1.306 T Score Values are as follows: ----- L2: 0.1 ----- L3: 1.1 ----- L4: 1.9 ----- L1-L4: 1.0 Bone mineral density has: Decreased -0.4% since study of: 04/24/2019 Bone mineral density about the R hip (g/cm2): 0.860 Bone mineral density about the L hip (g/cm2): 0.816 T Score values are as follows: -----R Neck: -1.3 -----L Neck: -1.6 -----R Total: -0.8 -----L Total: -1.3 Bone mineral density has: Decreased -1.6% since study of: 04/24/2019 IMPRESSION: Osteopenia (T Score between -2.5 and -1). There is slightly increased risk of fracture and the patient may be considered for treatment. Re-Screen 2-5 years. NOTE: T-SCORE=SD OF THE YOUNG ADULT MEAN.
== END | disposition home or self-care (01) ==
LOC: RADBDWWP 10:24
PROVIDERS: ATTEND Obstetrics & Gynecology
DX: M85.89 Other specified disorders of bone density and structure, multiple sites (principal); Z78.0 Asymptomatic menopausal state
CPT/HCPCS: 77080

== ENCOUNTER → 2022-08-24 | Outpatient (CLI) | payer MEDICARE ==
--- NOTE | 2022-08-25 17:14 | MR ---
EXAMINATION TYPE: MR shoulder RT wo con DATE OF EXAM: 08/24/2022 COMPARISON: None HISTORY: 72-year-old female M25.511 RT shoulder pain, hx breast ca TECHNIQUE: Multiplanar, multisequence imaging of the right shoulder is performed without contrast. FINDINGS: There is a fat intensity oval, circumscribed area involving the superficial anterior aspect of the up per deltoid musculature. This measures 3.7 x 1.9 x 1.6 cm. Some minimal internal strandy density is p resent. No suspicious soft tissue nodularity. Probable lipoma. Given the strandy density, clinical an d possible ultrasound follow-up is recommended. Intrinsic linear signal within the intracapsular portion of the long head biceps tendon. The extracap sular portion remains appropriately situated along the bicipital groove but with moderate tenosynovia l fluid. AC joint appears intact. Only mild degenerative change is present. Trace joint effusion. Minimal infe rior spurring may have slight mass effect onto the underlying myotendinous junction of the supraspina tus. There is heterogeneous signal throughout both surface and adjacent infraspinatus tendons. Suggestion of a subtle intrasubstance tear at the footprint of the anterior to mid supraspinatus tendon fibers, coronal image 11 and sagittal image 20. This measures 7 x 8 mm. No high-grade partial or full-thickness tear is identified. Some heterogeneous signal of the subscapularis tendon without tear. No atrophy of the rotator cuff musculature Cartilaginous loose bodies within the superior subscapularis recess and axillary recess measuring up to 7 mm. Areas of moderate thickness cartilage loss are present throughout the glenohumeral joint. No discrete labral tear given on the radiographic technique and no para labral cyst identified. There is a mild to moderately joint effusion. No Hill-Sachs deformity or os acromiale. Mild heterogeneous marrow signal suggesting some red marrow hyperplasia. Mild edematous change along the coracoclavicular ligament suggesting mild sprain. IMPRESSION: 1. Diffuse rotator cuff tendinosis. There is a small 8 x 6 mm intrasubstance tear at the footprint of the anterior to mid cervical spinous tendon. No high-grade partial or full-thickness rotator cuff te ar. 2. Moderate irregular cartilage loss throughout the glenohumeral joint with large cartilaginous loose bodies in the superior subscapular recess and axillary recess measuring up to 7 mm. 3. Some edema along the intact coracoclavicular ligament fibers suggesting a low-grade sprain. Clinic ally correlate. Mild degenerative changes present at the AC joint. 4. Suspect interstitial tear throughout the intracapsular portion of the long head biceps tendon. 5. A 3.7 x 1.9 cm mass involving the superficial aspect of the anterior deltoid muscle shows fat sign al intensity, most likely a lipoma. Correlate for any palpable abnormality here. Recommend clinical s urveillance to ensure stability as some internal strandy density raises the less likely possibility o f atypical lipomatous tumor or low-grade liposarcoma. 6. Some scattered red marrow hyperplasia which can be seen in the setting of anemia, obesity, smoking , chronic disease. No suspicious osseous lesion to suggest metastatic disease to the shoulder.
== END | disposition home or self-care (01) ==
LOC: RADMRIMAIN 10:45
PROVIDERS: ATTEND Internal Medicine Hematology & Oncology
DX: C50.211 Malignant neoplasm of upper-inner quadrant of right female breast (principal); M67.813 Other specified disorders of tendon, right shoulder; M19.011 Primary osteoarthritis, right shoulder; M24.111 Other articular cartilage disorders, right shoulder; R22.31 Localized swelling, mass and lump, right upper limb

== ENCOUNTER 2023-06-08 07:15 | Day surgery (SDC) | payer MEDICARE ==
[~2023-06-08 07:15] MED LIST changes: -DEXAMETHASONE SOD PHOSPHATE 10 MG/ML 1 ML VIAL IV ONE; -HYDROmorphone 0.5 MG/0.5 ML SYRINGE IVP PRN; +LACTATED RINGERS 1,000 ML IV SCH; +LIDOCAINE 1% (10MG/ML) FOR IV START INTRADERMA PRN; -LIDOCAINE 1% 20 ML VIAL (10MG/ML) FOR IV START INTRADERMA PRN; -ONDANSETRON 4 MG/2 ML VIAL IVP ONE; +ONDANSETRON 4 MG/2 ML VIAL IVP PRN; -ceFAZolin IN SWFI 2 GM/20 ML SYRINGE IVP ONE; +fentaNYL (PF) 50 MCG/ML 2 ML AMP IV PRN
[2023-06-08] MEDS ORDERED: DEXAMETHASONE SOD PHOSPHATE 4 MG/ML 1 ML VIAL IVP ONE (08:15)
[2023-06-08] MEDS ORDERED: MIDAZOLAM 2 MG/2 ML VIAL ONE (10:00)
[2023-06-08] MEDS ORDERED: SUCCINYLCHOLINE CHLORIDE 200 MG/10 ML VIAL IV ONE (10:00)
[2023-06-08] MEDS ORDERED: LIDOCAINE 1% INJ 10MG/ML (20 ML MDV) ONE (10:00)
[2023-06-08] MEDS ORDERED: fentaNYL (PF) 50 MCG/ML 2 ML AMP ONE (10:00)
[2023-06-08] MEDS ORDERED: PHENYLEPHRINE-0.9% NACL SYG 1,000 MCG/10 ML SYRINGE ONE (10:00)
[2023-06-08] MEDS ORDERED: PROPOFOL 10 MG/ML 20 ML VIAL IV ONE (10:00)
[2023-06-08] MEDS ORDERED: BUPIVACAINE (PF) 0.5% 30 ML VIAL SQ ONE (10:27)
[2023-06-08] MEDS ORDERED: ceFAZolin 1,000 MG in SODIUM CHLORIDE 0.9% 1,000 ML IRRIGATION ONE (10:28)
[2023-06-08] MEDS ORDERED: LACTATED RINGERS 1,000 ML IV ONE (10:39)
--- NOTE | 2023-06-08 11:18 | P.OP ---
Date of Procedure: 06/08/23 Preoperative Diagnosis: Hallux rigidus right foot Postoperative Diagnosis: Same Procedure(s) Performed: First metatarsal phalangeal joint arthrodesis right foot Implants: Arthrex MaxForce plate and screws Arthrex Allosync Anesthesia: JERRY Surgeon: Pedro Luis Padron Estimated Blood Loss (ml): 1 Pathology: none sent Condition: stable Disposition: PACU Description of Procedure: The patient was brought into the operating room and placed on table in the supine position. Timeout was taken to confirm correct patient identifiers, correct lateral surgery, and correct procedure. Once the staff in the room were in agreement with the timeout, the patient was induced and placed under general anesthesia. 20 mL of 0.25% Marcaine with was injected as a right ankle block. A well-padded tourniquet was placed on the ankle and then the foot was prepped and draped in the usual manner. The right foot was exsanguinated and the tourniquet inflated to 250 mmHg. Attention was directed over the dorsal aspect of the first metatarsal phalangeal joint, where a linear incision was made between the long extensor tendon and the neurovascular structures. The incision was deepened down to the subcutaneous layer careful to identify, avoid, and retract any neurovascular structures and cauterize any bleeding vessels. Blunt dissection was continued through the subcutaneous layer down to the periosteum and capsule. A linear periosteal and capsular incision was made medial to the long extensor tendon. Those tissues were then sharply reflected off of the first metatarsal head and shaft as well as the base of the proximal phalanx. The soft tissue was released around the joint so that the joint could be mobilized and accessed. A guidewire was placed through the central aspect of the first metatarsal head parallel to the long access and within the medullary canal. Appropriate size reamers were used to shape the first metatarsal head. Then a concave reamer was inserted over the guidewire and used to remove the articular cartilage and subchondral bone. The wire was removed was used to aggressively fenestrate the head of the first metatarsal. The guidewire was then inserted at the central aspect of the articular surface of the base of the proximal phalanx. The wire was advanced parallel to the long access and within the medullary canal. The convex reamer was then used to remove the articular cartilage and subchondral bone. The guidewire was removed and used to fenestrate the surface. The wound was thoroughly irrigated with antibiotic saline. Arthrex Arthrocell was placed between the arthrodesis segments. A 0 bend first metatarsal phalangeal joint fusion plate was then positioned dorsally over the site. Temporary fixation was used to hold the plate in place. Fluoroscopy was used to check the placement of the plate as well as the joint alignment. Once both positions were satisfactory, a combination of locking and nonlocking screws were placed in the distal part of the plate into the proximal phalanx. The position of the joint a nd plate were checked again under fluoroscopy. Once both were satisfactory, a wire was placed in the base of the proximal phalanx and across the arthrodesis site to maintain the alignment. The offset drill guide was then placed in the compression slot of the plate. The guide was removed and then the compression device was inserted through the drill hole and engaged with the plate. The compression device was turned to further compress the joint. While holding in compression, another threaded olive wire was used to hold it in place. A drill hole through the proximal compression slot was then made and a nonlocking screw was inserted and tightened until it engaged the plate and provided further compression across the arthrodesis site. A nonlocking screw was then placed in the drill hole in the proximal aspect of the plate closest to the joint line. The final screw was a locking screw placed in the most proximal hole the plate. Final fluoroscopic imaging showed proper placement of all hardware, maintaining correction of the joint, and excellent compression across the arthrodesis site. The temporary fixation wire was removed and the joint thoroughly irrigated with antibiotic saline. The capsule and periosteal tissues were closed with 0 Vicryl. Subcu closure was done with 4-0 Monocryl. And skin closure was done with 4-0 Stratafix in a running subcuticular manner. Dermal glue was placed around the incision, and once dried, Steri-Strips are placed across incision. An Arthrex jumpstart dressing was placed directly over the incision and then a dry sterile dressings applied to the right foot. The tourniquet was released and capillary refill return to all digits on the right foot. The patient was then placed in a well-padded, well molded plaster posterior mold/sugar tong splint. The ankle was held in neutral position until the splint was dried. Then anesthesia was reversed and the patient was taken recovery with vital signs stable.
[2023-06-08 11:27] VITALS: TEMP 97.6
[2023-06-08 12:11] VITALS: PULSE 77; RESP 16
[2023-06-08 12:31] VITALS: BP 131/80
== END 2023-06-08 12:54 | disposition home or self-care (01) ==
LOC: OR 07:15
PROVIDERS: ATTEND Podiatrist
DX: M20.21 Hallux rigidus, right foot (principal); I10 Essential (primary) hypertension; F10.90 Alcohol use, unspecified, uncomplicated; F12.90 Cannabis use, unspecified, uncomplicated; Z88.0 Allergy status to penicillin; Z90.89 Acquired absence of other organs; Z98.891 History of uterine scar from previous surgery; Z82.49 Family history of ischemic heart disease and other diseases of the circulatory system; Z83.3 Family history of diabetes mellitus; Z79.82 Long term (current) use of aspirin; E78.5 Hyperlipidemia, unspecified; Z85.3 Personal history of malignant neoplasm of breast; Z79.899 Other long term (current) drug therapy
CPT/HCPCS: 28750; C1713; C1734; J2250; J0330; J1100; J0690 ×2; J2405; J2001; J3010; J2704; J2371; J0665

== ENCOUNTER → 2023-07-30 | Outpatient (CLI) | payer MEDICARE ==
--- NOTE | 2023-07-30 17:27 | BD ---
EXAMINATION TYPE: Axial Bone Density DATE OF EXAM: 07/30/2023 CLINICAL HISTORY: 73 years old Female. ICD-10 CODE: C50.211MALIG NEOPLM OF UPPER-INNER QUADRANT OF R IG Height: 59.25 Weight: 144.9 FRAX RISK QUESTIONS: Alcohol (3 or more units per day): no Family History (Parent hip fracture): no Glucocorticoids (More than 3mos): no History of Fracture in Adulthood: no Secondary Osteoporosis: 1. Type 1 Diabetes: no 2. Hyperthyroidism: no 3. Menopause before 45: no 4. Malnutrition: no 5. Chronic liver disease: no Rheumatoid Arthritis: no Current Tobacco Use: no RISK FACTORS HISTORY OF: Hip Fracture (Right/Left): no Spine Fracture: no History of Wrist Fracture: no Surgery to Spine/Hip(right/left)/Wrist (right/left): no Family History of Osteoporosis: no Active: no Diet low in dairy products/other sources of calcium: yes Postmenopausal woman: yes Take estrogen and/or progesterone medications: no Lost more than 2 inches in height since high school: no Frequent falls: no Poor Health: no Hyperparathyroidism: no Adrenal Insufficiency: no MEDICATIONS: Prednisone or other steroids: no Thyroid Medications: no Osteoporosis Medications: no Additional Medications: Calcium , Cholesterol Meds, BP Meds, Multi Vit, Potassium, Additional History: Breast Ca. with Chemo and Radiation EXAM MEASUREMENTS: Bone mineral densitometry was performed using the [employer] System. Bone mineral density as measured about the Lumbar spine is: ----- L1-L4(G/cm2): 1.285 T Score Values are as follows: ----- L1: 0.1 ----- L2: 0.1 ----- L3: 1.1 ----- L4: 1.6 ----- L1-L4: 0.9 Z Score Values are as follows: ----- L1: 1.8 ----- L2: 1.8 ----- L3: 2.9 ----- L4: 3.4 ----- L1-L4: 2.6 Bone mineral density has: decreased -1.6 % since study of: 06/17/2021 Bone mineral density about the R hip (g/cm2): 0.832 Bone mineral density about the L hip (g/cm2): 0.784 T Score values are as follows: -----R Neck: -1.5 -----L Neck: -1.8 -----R Total: -0.8 -----L Total: -1.1 Z Score values are as follows: -----R Neck: 0.4 -----L Neck: 0.1 -----R Total: 1.0 -----L Total: 0.7 Bone mineral density has: increased 1.5 % since study of: 06/17/2021 FRAX%s: The graph provided illustrates a 12.3% chance for a major osteoporotic fx and a 2.9% chance f or the hips probability for fx in 10 years time. IMPRESSION: Osteopenia (T Score between -2.5 and -1). There is slightly increased risk of fracture and the patient may be considered for treatment. Re-Screen 2-5 years. NOTE: T-SCORE=SD OF THE YOUNG ADULT MEAN.
== END | disposition home or self-care (01) ==
LOC: RADBDWWP 09:39
PROVIDERS: ATTEND Internal Medicine Hematology & Oncology
DX: C50.211 Malignant neoplasm of upper-inner quadrant of right female breast (principal); M85.89 Other specified disorders of bone density and structure, multiple sites; M15.9 Polyosteoarthritis, unspecified; Z78.0 Asymptomatic menopausal state
CPT/HCPCS: 77080

== ENCOUNTER → 2023-11-27 | Outpatient (CLI) | payer MEDICARE ==
[2023-11-27 11:44] LABS: African American GFR (CKD) 77 (>60 ml/min/1.73 sqM); Blood Urea Nitrogen 35 mg/dL (7-17); Non-African American GFR(CKD) 67 (>60 ml/min/1.73 sqM)
--- NOTE | 2023-11-27 12:57 | CT ---
EXAMINATION TYPE: CT brain w con DATE OF EXAM: 11/27/2023 COMPARISON: INDICATION: Extreme dizziness, unsteady on feet, trouble laying flat DLP: 1165 mGycm, Automated exposure control for dose reduction was used. CONTRAST: None CT of the brain is performed utilizing 3 mm thick sections through the posterior fossa and 3 mm thick sections through the remaining calvarium. Study is performed within 24 hours of arrival to the hosp ital. No abnormal hyperdensity is present to suggest an acute intracranial hemorrhage. No mass lesion is evident. No acute infarcts are evident. Ventricles and sulci are appropriate for the patient age. Small air-fluid levels are within the maxillary sinuses. Correlate for maxillary sinusitis. Remaining paranasal sinuses and mastoid air cells are clear. IMPRESSION: 1. No acute intracranial process. 2. Clinical correlation recommended for acute bilateral maxillary sinusitis
== END | disposition home or self-care (01) ==
LOC: RADCTMAIN 10:53
PROVIDERS: ATTEND Family Medicine
DX: R42 Dizziness and giddiness (principal); R00.0 Tachycardia, unspecified
CPT/HCPCS: 93225; 93226; 82565; 84520; 70460; 36415; Q9967

== ENCOUNTER → 2024-04-29 | Outpatient (CLI) | payer MEDICARE ==
--- NOTE | 2024-04-30 15:57 | CT ---
EXAMINATION TYPE: CT soft tissue neck wo con CT DLP: 215 mGycm, Automated exposure control for dose reduction was used. DATE OF EXAM: 04/29/2024 4:27 PM COMPARISON: None. CLINICAL INDICATION: Female, 74 years old with history of K14.0 GLOSSITIS; PHH, SORE ON TONGUE SINCE DECEMBER. NO PRIORS TECHNIQUE: Standard enhanced CT of the neck. Axial sections with coronal and sagittal reformats were obtained. Contrast used: mL of , (None if empty) Oral contrast used: (None if empty) FINDINGS: Brain: Visualized portions are grossly unremarkable. Orbits: Unremarkable Sinuses: Grossly unremarkable. Spaces of the neck: Clear and symmetric. Dental work with streak artifact limits evaluation slightly. Musculoskeletal: No acute osseous pathology. Degenerative disc disease changes of the visualized spin e are present. Lymph nodes: Multiple nonenlarged lymph nodes are seen along both anterior chains of the neck.. Spec ifically no greater than 1.0 cm in short axis lymph nodes identified. Vascular structures: Visualized major arteries are patent without evidence of aneurysm. Thoracic Inlet/airway: Airway is patent. The lung apices are clear. Soft tissues/Thyroid: Thyroid and remainder of the soft tissues are unremarkable. Other: none. IMPRESSION Mildly limited exam due to dental work and streak artifact. No lymphadenopathy or mass definitively v isualized. There is concern for malignancy consider direct visualization.
== END | disposition home or self-care (01) ==
LOC: RADCTMAIN 15:57
PROVIDERS: ATTEND Family Medicine
DX: K14.0 Glossitis
CPT/HCPCS: 70490

== ENCOUNTER 2024-06-23 11:51 | Inpatient (IN) | payer MEDICARE ==
[2024-06-23 13:19] LABS: Basophils % (A) 1 %; Eosinophils % (A) 1 %; HCT 38.7 % (34.0-46.0); HGB 13.1 gm/dL (11.4-16.0); Lymphocytes # (A) 1.1 k/uL (1.0-4.8); Lymphocytes % (A) 13 %; MCHC 33.9 g/dL (31.0-37.0); MCV 97.4 fL (80.0-100.0); Mean Platelet Volume 7.4; Monocytes # (A) 0.5 k/uL (0-1.0); Monocytes % (A) 6 %; Neutrophils # (A) 6.7 k/uL (1.3-7.7); Neutrophils % (A) 78 %; Platelet Count 284 k/uL (150-450); RBC 3.97 m/uL (3.80-5.40); WBC 8.6 k/uL (3.8-10.6)
[2024-06-23 13:32] LABS: ALT 24 U/L (4-34); AST 49 U/L (14-36); African American GFR (CKD) 66 (>60 ml/min/1.73 sqM); Albumin 4.2 g/dL (3.5-5.0); Alkaline Phosphatase 54 U/L (38-126); Anion Gap 9 mmol/L; Blood Urea Nitrogen 33 mg/dL (7-17); Calcium 10.2 mg/dL (8.4-10.2); Carbon Dioxide 33 mmol/L (22-30); Chloride 95 mmol/L (98-107); Glucose 128 mg/dL (74-99); Magnesium 1.9 mg/dL (1.6-2.3); Non-African American GFR(CKD) 57 (>60 ml/min/1.73 sqM); Sodium 137 mmol/L (137-145); Total Bilirubin 0.9 mg/dL (0.2-1.3); Total Protein 6.6 g/dL (6.3-8.2)
[2024-06-23 14:13] LABS: Potassium 2.4 mmol/L (3.5-5.1)
--- NOTE | 2024-06-23 14:35 | ED ---
Recheck HPI - General Chief Complaint: Recheck/Abnormal Lab/Rx Stated Complaint: ABN labs,cancer pt Time Seen by Provider: 06/23/24 13:25 Source: patient, RN notes reviewed Mode of arrival: ambulatory Limitations: no limitations - History of Present Illness Initial Comments: This is a 74-year-old female who presents to the emergency department for hypoka lemia. Patient is supposed to have surgery in [place] 2 days from now on her tongue due to cancer. She had preoperative lab work done today and received a call from the anesthesia team shortly afterwards saying that her potassium was critically low at 2.7 and she was instructed to come to the emergency department for evaluation. Patient reports increasing fatigue over the last few days. Denies any chest pain or shortness of breath. MD Complaint: abnormal lab - Related Data Home Medications Medication Instructions Recorded Confirmed atenoloL 25 mg PO DAILY 08/27/16 06/23/24 Letrozole [Femara] 2.5 mg PO DAILY 04/09/18 06/23/24 Chlorthalidone 12.5 mg PO HS 12/27/18 06/23/24 Potassium Chloride 20 meq PO BID 06/23/24 06/23/24 oxyCODONE-APAP 10-325MG [Percocet 1 tab PO QID 06/23/24 06/23/24 10-325 mg] oxyCODONE-APAP 5-325MG [Percocet 1 tab PO QID 06/23/24 06/23/24 5-325 mg] polyethylene glycoL 3350 [Miralax] 17 gm PO DAILY PRN 06/23/24 06/23/24 Allergies Allergy/AdvReac Type Severity Reaction Status Date / Time amoxicillin [From Augmentin] Allergy Rash/Hives/ Verified 06/23/24 14:58 Diarrhea chlorpheniramine Allergy Itching Verified 06/23/24 14:58 [From Tussionex] clavulanic acid Allergy Rash/Hives/ Verified 06/23/24 14:58 [From Augmentin] Diarrhea doxycycline Allergy Itching Verified 06/23/24 14:58 gabapentin Allergy Unknown Verified 06/23/24 14:58 hydrocodone [From Tussionex] Allergy Itching Verified 06/23/24 14:58 moxifloxacin [From Avelox] Allergy Itching Verified 06/23/24 14:58 Review of Systems ROS Statement: Those systems with pertinent positive or pertinent negative responses have been documented in the HPI. ROS Other: All systems not noted in ROS Statement are negative. Past Medical History Past Medical History: Cancer, Hyperlipidemia, Hypertension, Osteoarthritis (OA) Additional Past Medical History / Comment(s): breast cancer, last chemo-11/03, History of Any Multi-Drug Resistant Organisms: None Reported Past Surgical History: Section, Joint Replacement, Tonsillectomy Additional Past Surgical History / Comment(s): arthroscopy to right knee, rt knee replacement ,lft foot and 2nd left toe surgery. PARTIAL RT MASTECTOMY. COLONOSCOPY Past Anesthesia/Blood Transfusion Reactions: No Reported Reaction Additional Past Anesthesia/Blood Transfusion Reaction / Comment(s): 'GETS DIZZY WHEN LAYING ON BACK" Past Psychological History: No Psychological Hx Reported Smoking Status: Never smoker - Past Family History Mother History Unknown: Yes Family Medical History: Cancer, Hypertension Additional Family Medical History / Comment(s): Breast cancer General Exam Limitations: no limitations General appearance: alert, in no apparent distress Head exam: Present: atraumatic, normocephalic, normal inspection Respiratory exam: Present: normal lung sounds bilaterally. Absent: respiratory distress, wheezes, rales, rhonchi, stridor Cardiovascular Exam: Present: regular rate, normal rhythm, normal heart sounds. Absent: systolic murmur, diastolic murmur, rubs, gallop, clicks Neurological exam: Present: alert, oriented X3, CN II-XII intact Psychiatric exam: Present: normal affect, normal mood Skin exam: Present: warm, dry, intact, normal color. Absent: rash Course Vital Signs 06/23/24 12:13 Temperature 98.6 F Pulse Rate 70 Respiratory 18 Rate Blood Pressure 119/57 O2 Sat by Pulse 100 Oximetry Procedures - [place] Protocol (Time Out) Nurse: Lynda Castro Medical Decision Making - Medical Decision Making This is a 74 year old female who presents to the emergency department for hypokalemia. Was pt. sent in by a medical professional or institution? @ -No Did you speak to anyone other than the patient for history? @ -No Did you review nursing and triage notes? @ -Yes, and I agree, it is accurate with regards to the patient's symptoms. Were old charts reviewed? @ -No Differential Diagnosis? @ -Medications, vomiting, diarrhea, hypomagnesemia, dietary intake, this is not meant to be an all-inclusive list. EKG interpreted by me (3pts min.)? @ -EKG interpreted by me demonstrating the following: Sinus bradycardia. Ventricular rate 57 bpm, AR interval 157 ms, QRS duration 86 ms, QTc 390 ms. X-rays interpreted by me (1pt min.)? @ -Not obtained CT interpreted by me (1pt min.)? @ -Not obtained U/S interpreted by me (1pt. min.)? @ -Not obtained What testing was considered but not performed? (CT, X-rays, U/S, labs)? Why? @ -None What meds were considered but not given? Why? @ -None Did you discuss the management of the patient with other professionals? @ -Yes, Dr. Guerrero, who accepts the patient for admission Did you reconcile home meds? @ -Yes Was smoking cessation discussed for >3mins.? @ -No Was critical care preformed (if so, how long)? @ -No Were there social determinants of health that impacted care today? How? (Homelessness, low income, unemployed, alcoholism, drug addiction, transportation, low edu. Level, literacy, decrease access to med. care, half-way, rehab)? @ -No Was there de-escalation of care discussed even if they declined? (Discuss DNR or withdrawal of care, Hospice)? @ -No What co-morbidities impacted this encounter? (DM, HTN, Smoking, COPD, CAD, Cancer, CVA, Hep., AIDS, mental health diagnosis, sleep apnea, morbid obesity)? @ -Cancer Was patient admitted / discharged? @ -Admitted. Lab work demonstrates hypokalemia with a potassium of 2.4. Lab work also has signs of dehydration. Patient states that she is supposed to take potassium at home. She was unable to swallow the large pills and was switched to the powder. However, states that she had forgotten to start taking this. 40 mEq of K-Lyte and 40 mEq of potassium chloride IVPB administered. Disposition options discussed with the patient. States that she is not comfortable with discharge home because she lives by herself and feels very weak. Patient subsequently admitted to medicine for hypokalemia and weakness. Urinalysis ordered with results pending at the time of admission. Case discussed with ED attending Dr. Cheung. Undiagnosed new problem with uncertain prognosis? @ -None Drug Therapy requiring intensive monitoring for toxicity (Heparin, Nitro, Insulin, Cardizem)? @ -None Were any procedures done? @ -None Diagnosis/symptom? @ -Hypokalemia, weakness Acute, or Chronic, or Acute on Chronic? @ -Acute Uncomplicated (without systemic symptoms) or Complicated (systemic symptoms)? @ -Complicated Side effects of treatment? @ -None Exacerbation, Progression, or Severe Exacerbation] @ -Not applicable Poses a threat to life or bodily function? @ -If potassium continues to decrease it can become life threatening - Lab Data Result diagrams: 06/23/24 12:43 06/23/24 12:43 Lab Results 06/23/24 06/23/24 Range/Units 12:43 12:43 WBC 8.6 (3.8-10.6) k/uL RBC 3.97 (3.80-5.40) m/uL Hgb 13.1 (11.4-16.0) gm/dL Hct 38.7 (34.0-46.0) % MCV 97.4 (80.0-100.0) fL MCH 33.0 (25.0-35.0) pg MCHC 33.9 (31.0-37.0) g/dL RDW 13.0 (11.5-15.5) % Plt Count 284 (150-450) k/uL MPV 7.4 Neutrophils % 78 % Lymphocytes % 13 % Monocytes % 6 % Eosinophils % 1 % Basophils % 1 % Neutrophils # 6.7 (1.3-7.7) k/uL Lymphocytes # 1.1 (1.0-4.8) k/uL Monocytes # 0.5 (0-1.0) k/uL Eosinophils # 0.0 (0-0.7) k/uL Basophils # 0.0 (0-0.2) k/uL Sodium 137 (137-145) mmol/L Potassium 2.4 L* (3.5-5.1) mmol/L Chloride 95 L (98-107) mmol/L Carbon Dioxide 33 H (22-30) mmol/L Anion Gap 9 mmol/L BUN 33 H (7-17) mg/dL Creatinine 0.97 (0.52-1.04) mg/dL Est GFR (CKD-EPI)AfAm 66 (>60 ml/min/1.73 sqM) Est GFR (CKD-EPI)NonAf 57 (>60 ml/min/1.73 sqM) Glucose 128 H (74-99) mg/dL Calcium 10.2 (8.4-10.2) mg/dL Magnesium 1.9 (1.6-2.3) mg/dL Total Bilirubin 0.9 (0.2-1.3) mg/dL AST 49 H (14-36) U/L ALT 24 (4-34) U/L Alkaline Phosphatase 54 (38-126) U/L Total Protein 6.6 (6.3-8.2) g/dL Albumin 4.2 (3.5-5.0) g/dL Disposition Clinical Impression: Hypokalemia, Weakness Disposition: ADMITTED IP TO THIS HOSP Referrals: Omkar Guerrero MD [Primary Care Provider] - 1-2 days
[2024-06-23] MEDS: SODIUM CHLORIDE 0.9% 500 ML 500 ML IV ONE (14:45)
[2024-06-23] MEDS: POTASSIUM CHLORIDE 20 MEQ in WATER FOR INJECTION 1 100ML.BAG IVPB STA (15:05)
[2024-06-23] MEDS: POTASSIUM BICARBONATE/CIT AC 20 MEQ TABLET.EFF PO ONE (15:05)
[2024-06-23] MEDS ORDERED: NALOXONE 0.4 MG/ML 1 ML VIAL IV PRN (15:19)
[2024-06-23] MEDS ORDERED: polyethylene glycoL 3350 17 GM POWD.PACK PO PRN (15:19)
[2024-06-23] MEDS ORDERED: ACETAMINOPHEN TAB 325 MG TAB PO PRN (15:19)
[2024-06-23 17:11] LABS: Appearance,Urine Clear (Clear); Bilirubin,Urine Negative (Negative); Blood,Urine Negative (Negative); Color,Urine Colorless; Glucose,Urine (UA) Negative (Negative); Ketones,Urine 1+ (Negative); Leukocyte Esterase,Urine Small (Negative); Mucus,Urine Rare /hpf; Nitrite,Urine Negative (Negative); PH, Urine 5.5 (5.0-8.0); Protein,Urine Negative (Negative); RBC,Urine 1 /hpf (0-5); Specific Gravity,Urine 1.016 (1.001-1.035); Squamous Epithelial Cell,Urine <1 /hpf (0-4); Urobilinogen,Urine <2.0 mg/dL (<2.0); WBC,Urine 1 /hpf (0-5)
[2024-06-23] MEDS: POTASSIUM CHLORIDE 20 MEQ in WATER FOR INJECTION 1 100ML.BAG IVPB ONE (17:23)
[2024-06-23] MEDS: oxyCODONE-APAP 10-325MG 1 EACH TAB PO SCH (17:26)
[2024-06-23] MEDS: oxyCODONE-APAP 5-325MG 1 EACH TAB PO SCH (17:26)
[2024-06-23] MEDS: ONDANSETRON 4 MG/2 ML VIAL IVP STA (17:28)
[2024-06-23] MEDS: ONDANSETRON 4 MG/2 ML VIAL IVP PRN (17:29)
[2024-06-23] MEDS ORDERED: oxyCODONE-APAP 10-325MG 1 EACH TAB PO SCH (18:00)
[2024-06-23] MEDS ORDERED: oxyCODONE-APAP 5-325MG 1 EACH TAB PO SCH (18:00)
[2024-06-23] MEDS: POTASSIUM CHLORIDE ER 20 MEQ TAB.ER PO SCH (21:47)
[2024-06-23] MEDS: CHLORTHALIDONE 25 MG TAB PO SCH (21:48)
--- NOTE | 2024-06-24 02:39 | HP ---
HISTORY AND PHYSICAL CHIEF COMPLAINT: Generalized weakness. HISTORY OF PRESENT ILLNESS: This lady has been treated and prepared for radical glossectomy and right neck dissection. She is scheduled for the surgery in a few days. She has been getting progressively more weak and she came to the emergency room where her potassium was 2.4. Review of systems is otherwise unremarkable. She did have some bleeding from the biopsy site on the right side of the tongue, but this has stopped. She is extremely anxious and not eating or drinking well. Review of systems is otherwise noncontributory. Past medical history, family history, personal and social histories reveal that she is allergic to Tussionex, penicillin, quinolones, and tetracyclines. She does not smoke or drink. PHYSICAL EXAMINATION: VITAL SIGNS: Normal. HEAD, EARS, EYES, NOSE, MOUTH, AND THROAT: Normal. The only abnormality is the lesion on the right side of the tongue. CHEST: Clear. CARDIAC: Normal. ABDOMEN: Soft, nontender. EXTREMITIES: Normal. IMPRESSION: 1. Hypokalemia. 2. Dehydration. 3. 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 4. History of breast cancer without sequelae. 5. History of hypertension. 6. Anxiety. PLAN: 1. Bed rest. 2. IV fluids. 3. Control hypokalemia as quickly as possible and get her to her surgery this week. MMODL / IJN: [id number] /
[2024-06-24] MEDS: MAG HYDROX/AL HYDROX/SIMETH 30 ML, LIDOCAINE VISCOUS 2% 30 ML, diphenhydrAMINE ELIXIR 7... PO SCH (06:23)
[2024-06-24] MEDS: PANTOPRAZOLE 40 MG/10 ML VIAL IV SCH (08:55)
[2024-06-24] MEDS: atenoloL 25 MG TAB PO SCH (08:55)
[2024-06-24 09:11] VITALS: RESP 17
[2024-06-24] MEDS: LETROZOLE 2.5 MG TAB PO SCH (09:39)
[2024-06-24] MEDS: POTASSIUM CHLORIDE ER 20 MEQ TAB.ER PO SCH (11:38)
[2024-06-24] MEDS: oxyCODONE-APAP 5-325MG 1 EACH TAB PO SCH (13:13)
[2024-06-24] MEDS: oxyCODONE-APAP 10-325MG 1 EACH TAB PO SCH (13:15)
[2024-06-24 14:13] VITALS: BMI 21.0
[2024-06-24 14:51] VITALS: BP 115/69; PULSE 62; TEMP 98.5
--- NOTE | 2024-06-28 20:27 | DS ---
DISCHARGE SUMMARY CHIEF COMPLAINT: Weakness. HISTORY OF PRESENT ILLNESS: History of present illness and physical exam details of this lady's history and physical can be found in the initial workup. LABORATORY STUDIES: While she is in the hospital, she had laboratory studies, details of which can be found in the laboratory section of her chart. COURSE IN HOSPITAL: After admission, she was placed on bedrest and started on intravenous fluids and her hypokalemia was corrected. She is doing well. It was felt she could be discharged on the and she goes for her surgery the next day. FINAL DIAGNOSES: 1. Hypokalemia. 2. Carcinoma of the tongue. OPERATIONS: None. CONSULTATIONS: None. CONDITION: Improved. MMODL / IJN: [id number] /
== END 2024-06-24 19:25 | disposition home or self-care (01) | DRG 641 ==
LOC: EC 11:51 → 5NMEDONC 15:30
PROVIDERS: ADMIT Family Medicine; ATTEND Family Medicine
DX: E87.6 Hypokalemia (principal); E78.5 Hyperlipidemia, unspecified; C01 Malignant neoplasm of base of tongue; E86.0 Dehydration; F41.9 Anxiety disorder, unspecified; I10 Essential (primary) hypertension; Z79.811 Long term (current) use of aromatase inhibitors; Z85.3 Personal history of malignant neoplasm of breast; Z82.49 Family history of ischemic heart disease and other diseases of the circulatory system; Z90.11 Acquired absence of right breast and nipple; Z96.651 Presence of right artificial knee joint; Z87.19 Personal history of other diseases of the digestive system; Z88.1 Allergy status to other antibiotic agents; Z88.0 Allergy status to penicillin; Z88.8 Allergy status to other drugs, medicaments and biological substances
CPT/HCPCS: 36415; 80053; 81001; 83735; 84132; 85025; 93005; 96365; 96366; 96375; 99285

== ENCOUNTER → 2024-09-02 | Day surgery (SDC) | payer MEDICARE ==
[2024-09-01 13:45] VITALS: BMI 21.4
[~2024-09-02] MED LIST changes: -ONDANSETRON 4 MG/2 ML VIAL IVP PRN; +PROPOFOL 10 MG/ML 20 ML VIAL IV ONE; +ceFAZolin 1 GM/50 ML BAG (PMX) ONE; -fentaNYL (PF) 50 MCG/ML 2 ML AMP IV PRN
[2024-09-02 11:44] VITALS: RESP 16; TEMP 97.6
[2024-09-02] MEDS: LACTATED RINGERS 1,000 ML IV ONE (11:46)
[2024-09-02] MEDS: SODIUM CHLORIDE 0.9% 100 ML with ceFAZolin 1,000 MG IV ONE ×2 (12:14→12:17)
--- NOTE | 2024-09-02 12:14 | P.GSHP ---
History of Present Illness H&P Date: 09/02/24 Chief Complaint: Tongue cancer, malnutrition 74-year-old female diagnosed previously with lung cancer. Patient has been receiving therapy for that. Patient has had progressive weight loss despite attempts at eating more. Patient has significant issues with swallowing and satiety. Here today for EGD with PEG tube placement. Past Medical History Past Medical History: Cancer, Hypertension, Osteoarthritis (OA) Additional Past Medical History / Comment(s): breast cancer, last chemo-11/03, tongue History of Any Multi-Drug Resistant Organisms: None Reported Past Surgical History: Breast Surgery, Section, Joint Replacement, Tonsillectomy Additional Past Surgical History / Comment(s): arthroscopy to right knee, rt knee replacement ,lft foot and 2nd left toe surgery. PARTIAL RT MASTECTOMY, tongue surgery cut off due to cancer used forearm skin to use for tongue.07/13 having chemo and radiation not started yet. COLONOSCOPY Past Anesthesia/Blood Transfusion Reactions: No Reported Reaction Additional Past Anesthesia/Blood Transfusion Reaction / Comment(s): 'GETS DIZZY WHEN LAYING ON BACK". no blood transfusion reaction Smoking Status: Never smoker - Past Family History Mother History Unknown: Yes Family Medical History: Cancer, Hypertension Additional Family Medical History / Comment(s): Breast cancer Medications and Allergies Home Medications Medication Instructions Recorded Confirmed Type atenoloL 25 mg PO DAILY 08/27/16 09/02/24 History Allergies Allergy/AdvReac Type Severity Reaction Status Date / Time amoxicillin [From Augmentin] Allergy Rash/Hives/ Verified 09/02/24 11:47 Diarrhea chlorpheniramine Allergy Itching Verified 09/02/24 11:47 [From Tussionex] clavulanic acid Allergy Rash/Hives/ Verified 09/02/24 11:47 [From Augmentin] Diarrhea doxycycline Allergy Itching Verified 09/02/24 11:47 gabapentin Allergy Unknown Verified 09/02/24 11:47 hydrocodone [From Tussionex] Allergy Itching Verified 09/02/24 11:47 moxifloxacin [From Avelox] Allergy Itching Verified 09/02/24 11:47 Surgical - Exam Vital Signs Temp Resp BP Pulse Ox 97.6 F 16 142/87 97 09/02/24 11:43 09/02/24 11:43 09/02/24 11:43 09/02/24 11:43 Physical exam: General: Well-developed, malnourished appearing HEENT: Normocephalic, sclerae nonicteric, right sided neck scarring Abdomen: Nontender, nondistended Extremities: No edema Neuro: Alert and oriented Assessment and Plan (1) Tongue cancer Narrative/Plan: Will proceed with EGD with PEG tube placement at this time. Risks of bleeding, infection, catheter malfunction, catheter misplacement, fistula, reflux, vomiting, aspiration reviewed. She understands and wishes to proceed. Current Visit: Yes Status: Acute Code(s): C02.9 - MALIGNANT NEOPLASM OF TONGUE, UNSPECIFIED SNOMED Code(s): 413822882
--- NOTE | 2024-09-02 12:32 | P.PCN ---
Date of Procedure: 09/02/24 Procedure(s) Performed: PREOPERATIVE DIAGNOSIS: Malnutrition, tongue cancer POSTOPERATIVE DIAGNOSIS: Same PROCEDURE: EGD with PEG tube placement SURGEON: Idalia EBL: Minimal ANESTHESIA: Sedation COMPLICATIONS: None OPERATIVE PROCEDURE: The patient was placed in the supine position on the endoscopy table. The patient was sedated per anesthesia that time. The Olympus gastroscope was inserted into the oropharynx and passed under direct visualization to the region of the duodenum. No obstruction was seen. The pylorus was widely patent. The stomach was carefully inspected. The stomach was fully insufflated with air. The abdominal wall was inspected. The light was seen shining through the abdominal wall in the left upper quadrant. This site was chosen for PEG tube placement. The area was prepped in the usual sterile fashion. This area was then localized with lidocaine. No air was evident when aspirating while advancing the localizing needle into the stomach until the stomach was reached. A small vertical incision was made using the scalpel. The Seldinger needle was advanced into the lumen of the stomach the wire was advanced. The wire was grasped with an endoscopic snare. The wire was pulled through the oropharynx. The catheter was then threaded over the guidewire and the guidewire and catheter were pulled anteriorly until the hub of the PEG tube catheter was seated against the anterior wall the stomach. The circular bolster was applied and tightened down. The endoscope was then readvanced into the stomach. There was no evidence of any bleeding and there was appropriate tightness on the bolster. The catheter was cut appropriately. The dual port feeding adapter was applied. DISPOSITION: Stable to recovery room
[2024-09-02 13:44] VITALS: BP 154/84; PULSE 72
== END ==
LOC: ORWHC2ENDO 10:11
PROVIDERS: ATTEND Surgery
DX: C02.9 Malignant neoplasm of tongue, unspecified (principal); E46 Unspecified protein-calorie malnutrition; I10 Essential (primary) hypertension; M19.90 Unspecified osteoarthritis, unspecified site; Z85.3 Personal history of malignant neoplasm of breast; Z88.0 Allergy status to penicillin; Z88.1 Allergy status to other antibiotic agents; Z88.5 Allergy status to narcotic agent; Z90.89 Acquired absence of other organs; Z79.899 Other long term (current) drug therapy
CPT/HCPCS: 43246; J0690

== ENCOUNTER 2024-09-17 09:39 | Day surgery (SDC) | payer MEDICARE ==
[2024-09-17 10:10] VITALS: RESP 16; TEMP 98.1
[2024-09-17 11:22] LABS: African American GFR (CKD) 86 (>60 ml/min/1.73 sqM); Anion Gap 7 mmol/L; Blood Urea Nitrogen 54 mg/dL (7-17); Calcium 9.5 mg/dL (8.4-10.2); Carbon Dioxide 28 mmol/L (22-30); Chloride 103 mmol/L (98-107); Glucose 83 mg/dL (74-99); Non-African American GFR(CKD) 74 (>60 ml/min/1.73 sqM); Potassium 4.3 mmol/L (3.5-5.1); Sodium 138 mmol/L (137-145)
[2024-09-17 12:09] VITALS: PULSE 65
== END 2024-09-17 12:30 | disposition home or self-care (01) ==
LOC: CATHCVL 09:39
PROVIDERS: ATTEND Internal Medicine Hematology & Oncology
DX: C02.9 Malignant neoplasm of tongue, unspecified (principal)
CPT/HCPCS: 36573; 80048; C1751

== ENCOUNTER → 2025-01-29 | Outpatient (CLI) | payer MEDICARE ==
--- NOTE | 2025-01-30 18:48 | PE ---
EXAMINATION TYPE: PET CT fusion skull to thigh DATE OF EXAM: 01/29/2025 CLINICAL INDICATION:Female, 74 years old with history of C02.1 MALIGNANT NEOPLASM OF BORDER OF TONGUE ; TECHNIQUE: Following the intravenous administration of 10.67 mCi of F-18 FDG, whole body images are performed from the skull base to the Mid thigh. Images are reviewed on the computer in the coronal, axial, and sagittal planes. Reconstructed rotating images are created on independent workstation an d reviewed on the computer. A non-contrast CT is performed in conjunction with the PET scan. Glucos e level 106 mg/dL CT DLP: 720 mGycm, Automated exposure control for dose reduction was used. COMPARISON: CT 11/27/2023, 04/29/2024, PET/CT None, MRI: None FINDINGS: Mediastinal SUV mean is 2.2. Hepatic parenchyma SUV mean is 3.0. SKULL BASE AND NECK: Suspicious uptake identified; examples include: * Uptake within the right neck and confluent soft tissue max SUV 5.5. CHEST, MEDIASTINUM, AND HILAR REGION: Suspicious uptake identified; examples include: * Right Lower lobe superior segment 10 mm nodule Max SUV 3.4. * Left lower lobe 7 mm pulmonary nodule Max SUV 1.3. ABDOMEN AND PELVIS: No suspicious radiotracer activity. MUSCULOSKELETAL STRUCTURES: No suspicious radiotracer activity. OTHER CT: Atherosclerosis of the arterial vasculature. Surgical clips throughout the right neck. Surg ical clips in the right breast. Cholelithiasis. Colonic diverticulosis. PEG tube in satisfactory position. IMPRESSION: 1. Uptake within the right neck surgical bed with soft tissue CT appearance as a somewhat linear mor phology unclear if this is a elongated lymph node are postsurgical change. Attention follow-up imagin g 2. There are 2 pulmonary nodules concerning for metastatic disease the most suspicious of which is t he right lower lobe superior segment. [facility], , 01/30/2025 6:45 PM
== END | disposition home or self-care (01) ==
LOC: RADPETMAIN 13:38
PROVIDERS: ATTEND Otolaryngology
DX: C02.1 Malignant neoplasm of border of tongue (principal); R91.8 Other nonspecific abnormal finding of lung field
CPT/HCPCS: 78815; A9552